=== PATIENT | female | born 1945 ===

== ENCOUNTER 2017-12-10 19:38 | Inpatient (IN) | payer MEDICARE ==
[2017-12-10] MEDS ORDERED: Albuterol-Ipratrop 3 mg / 0.5 (3 ml) UD ONE ×2 (20:19→20:46)
[2017-12-10] MEDS ORDERED: Albuterol 0.083% Inhal Sol (2.5 mg/3 mL) UD INH STA (20:24)
--- NOTE | 2017-12-10 20:27 | C.PDOC ---
History Of Present Illness Patient is a 72 y/o female, with a Hx of colon CA, PNA, and asthma, who presents to the ED with a complaint of persistent CP associated with with SOB and productive cough. Per son, patient also experienced a sore throat and subjective, unknown fever. Patient admits to diaphoresis and mild upper bilateral leg pain. Denies any pain or swelling to calves. Son reports patient had colonic polyp removal last week with improved symptoms. Admits to using inhaler and nebulizer 1-2 times per day. No other physical complaints at this time. Time Seen by Provider: 12/10/17 19:57 Chief Complaint (Nursing): Chest Pain History Per: Patient, Family (son) History/Exam Limitations: no limitations Onset/Duration Of Symptoms: Days Current Symptoms Are (Timing): Still Present Associated Symptoms: Dyspnea, Diaphoresis Exacerbating Factors: Other (coughing) Recent travel outside of the [place]: No Past Medical History Reviewed: Historical Data, Nursing Documentation, Vital Signs Vital Signs: Last Vital Signs Temp 98.7 F 12/11/17 01:46 Pulse 87 12/11/17 01:46 Resp 18 12/11/17 01:46 BP 102/63 12/11/17 01:46 Pulse Ox 95 12/11/17 01:46 - Medical History PMH: Asthma, Bronchitis, Hyperthyroidism, Pneumonia Surgical History: Appendectomy, Cholecystectomy Family History: States: No Known Family Hx - Social History Hx Alcohol Use: No Hx Substance Use: No - Immunization History Hx Tetanus Toxoid Vaccination: No Hx Influenza Vaccination: No Hx Pneumococcal Vaccination: No Review Of Systems Constitutional: Positive for: Fever (subjective), Sweats ENT: Positive for: Throat Pain (sore throat) Cardiovascular: Positive for: Chest Pain. Negative for: Edema Respiratory: Positive for: Cough, Shortness of Breath Gastrointestinal: Negative for: Abdominal Pain Physical Exam - Physical Exam Appears: In Acute Distress (mild) Skin: Normal Color, Warm, Dry Head: Atraumatic, Normacephalic Oral Mucosa: Moist Throat: Normal, No Erythema Cardiovascular: Rhythm Regular, No Murmur Respiratory: Decreased Breath Sounds, No Rales, No Rhonchi, Wheezing (diffuse bilateral), Other (breathing 24x/min) ED Course And Treatment - Laboratory Results Result Diagrams: 12/11/17 04:55 12/11/17 04:55 ECG Rhythm: Sinus Tachycardia, R BBB (incomplete), Nonspecific Changes Interpretation Of ECG: LVH with strain pattern. Poor R wave progression in anteroseptal leads. No old EKGs for comparison Rate From EC (bpm) O2 Sat by Pulse Oximetry: 98 - CT Scan/US Chest Other Rad Studies (CT/US): Interpreted By Me, Read By Radiologist CT/US Interpretation: EXAM: CT Chest With Intravenous Contrast. EXAM DATE/TIME : 12/10/2017 9:54 PM. CLINICAL HISTORY: 72 years old, female; Signs and symptoms; Cough and shortness of breath; Symptoms not specified;. Additional info: Apical infiltrate versus mass. TECHNIQUE: Axial computed tomography images of the chest with intravenous contrast. All CT scans at this. facility use one or more dose reduction techniques, viz.: automated exposure control; ma/ kV. adjustment per patient size (including targeted exams where dose is matched to indication; i.e. head);. or iterative reconstruction technique. Coronal and sagittal reformatted images were created and reviewed. CONTRAST: 100 mL of [id number] administered intravenously. COMPARISON: There are no prior studies for comparison. FINDINGS: Lungs and pleural spaces: There is bilateral upper lobe volume loss. There is bilateral upper lobe. fibrosis and scarring. There is a bulla at the right apex. There is bilateral upper lobe bronchiectasis. There is apical pleural thickening. There are multiple calcified granulomas. Lower lobes and rightmiddle lobe are hyperinflated. There is fibrosis and scarring in the superior segments of both lower. lobes. There is scarring at the lung bases. There are no effusions. Heart and vasculature: The heart is normal in size. There is no pericardial effusion.Aorta and main. pulmonary artery are normal in caliber.There are vascular calcifications. Mediastinum: Trachea and main bronchi are patent. There is elevation and distortion of both bobby. There are shotty noncalcified and calcified mediastinal and hilar nodes. Esophagus is unremarkable. There is a small hiatal hernia. Thyroid: Thyroid is unremarkable. Bones/joints: Bony structures are osteopenic. There are degenerative changes. Soft tissues: unremarkable. Upper abdomen: There is fatty infiltration of the liver.There are small granulomas in the liver. There. is an accessory spleen. Gallbladder is absent. IMPRESSION: Bilateral upper lobe volume loss with fibrosis, scarring and bronchiectasis; less. extensive fibrosis and scarring in the superior segments of both lower lobes; prior granulomatous. disease. Additional nonemergent findings as described above Medical Decision Making Medical Decision Making: Plan: * EKG, CXR, blood work * Nebulizer treatment, Albuterol, Medrol Disposition - Disposition Disposition: HOSPITALIZED Disposition Time: 22:00 Condition: FAIR - Clinical Impression Clinical Impression: Asthmatic bronchitis, Influenza A - Scribe Statement The provider has reviewed the documentation as recorded by the Scribe Angie Fonseca All medical record entries made by the Shiraibmagen were at my direction and personally dictated by me. I have reviewed the chart and agree that the record accurately reflects my personal performance of the history, physical exam, medical decision making, and the department course for this patient. I have also personally directed, reviewed, and agree with the discharge instructions and disposition.
[2017-12-10] MEDS ORDERED: Albuterol 0.083% Inhal Sol (2.5 mg/3 mL) UD ONE (20:29)
[2017-12-10 20:54] LABS: BASO % 0.2 % (0.0-2.0); EOS % 0.7 % (0.0-4.0); HEMOGLOBIN 10.9 g/dL (11.0-16.0); LYMPH % 14.3 % (20.0-40.0); MEAN CELL VOLUME 82.7 fL (81.0-99.0); MEAN CORPUSCULAR HEMOGLOBIN 27.6 pg (27.0-31.0); MEAN CORPUSCULAR HGB CONC 33.4 g/dL (33.0-37.0); MEAN PLATELET VOLUME 9.3 fL (7.2-11.7); MONO # 0.9 K/uL (0.0-0.8); NEUT # 4.9 K/uL (1.8-7.0); NEUT % 71.8 % (50.0-75.0); RBC 3.96 Mil/uL (3.80-5.20); RED CELL DISTRIBUTION WIDTH 18.9 % (11.5-14.5); WHITE BLOOD COUNT 6.8 K/uL (4.8-10.8)
[2017-12-10 21:07] LABS: ALB/GLOB RATIO 1.2 (1.0-2.1); ALBUMIN 4.1 g/dL (3.5-5.0); ALT/SGPT 24 U/L (9-52); AST/SGOT 28 U/L (14-36); BLOOD UREA NITROGEN 6 mg/dL (7-17); CALCIUM 8.5 mg/dl (8.6-10.4); GFR AFRICAN-AMERICAN > 60; GFR NON-AFRICAN AMERICAN > 60
--- NOTE | 2017-12-10 22:09 | CP.PCM.HP ---
<Lindsay Harris - Last Filed: 12/11/17 05:44> History of Present Illness - History of Present Illness History of Present Illness: Medicine Note for Hospital Service CC: fever, cough, sore throat x 3 days HPI: 72 yo Female with PMHx Asthma, Hypothyroidism, Newly diagnosed Colon Cancer and TB (Age 10) presents to the ED with fever, cough, sore throat x 3 days. Patient reports feeling feverish, productive cough with yellow sputum , SOB, chest pain during coughing fits, sore throat, congestion, rhinorrhea, and body ache. Admitted to sick contact- her son had flu like symptoms. Patient did not receive the flu shot this past year. Patient saw her PMD day prior to admission, was given a prescription for mucinex and azithromycin. Denied abdominal pain, n/v/d/c, or urinary symptoms. PMHx: Asthma, Hypothyroidism, Newly diagnosed Colon Cancer (pending pathology from gastric polyp - colonscopy performed last week), TB (Age 10) PSHx: Appendectomy, Cholecystectomy Meds: As per JAN, reviewed and confirmed All: NKDA SHx: Denied x 3 FHx: Unremarkable PMD: [place] Present on Admission - Present on Admission Any Indicators Present on Admission: No Past Patient History - Past Social History Smoking Status: Never Smoked - PULMONARY Hx Asthma: Yes Hx Bronchitis: Yes Hx Pneumonia: Yes - ENDOCRINE/METABOLIC Hx Hyperthyroidism: Yes - GASTROINTESTINAL Other/Comment: COLON CANCER - PSYCHIATRIC Hx Substance Use: No - SURGICAL HISTORY Hx Appendectomy: Yes Hx Cholecystectomy: Yes - ANESTHESIA Hx Anesthesia: Yes Hx Anesthesia Reactions: No Meds Allergies/Adverse Reactions: Allergies Allergy/AdvReac Type Severity Reaction Status Date / Time No Known Allergies Allergy Unverified 12/10/17 19:53 Physical Exam - Constitutional Appears: No Acute Distress - Head Exam Head Exam: NORMAL INSPECTION, NORMOCEPHALIC - Eye Exam Eye Exam: EOMI, Normal appearance, PERRL Pupil Exam: NORMAL ACCOMODATION - ENT Exam ENT Exam: Mucous Membranes Moist - Neck Exam Neck exam: Positive for: Normal Inspection - Respiratory Exam Respiratory Exam: Decreased Breath Sounds, NORMAL BREATHING PATTERN. absent: Wheezes - Cardiovascular Exam Cardiovascular Exam: REGULAR RHYTHM - GI/Abdominal Exam GI & Abdominal Exam: Normal Bowel Sounds, Soft. absent: Distended, Tenderness - Extremities Exam Extremities exam: Positive for: normal inspection, pedal pulses present. Negative for: pedal edema, tenderness - Neurological Exam Neurological exam: Alert, CN II-XII Intact, Oriented x3 - Psychiatric Exam Psychiatric exam: Normal Affect, Normal Mood - Skin Skin Exam: Dry, Intact, Normal Color, Warm Results - Vital Signs Recent Vital Signs: Last Vital Signs Temp 98.8 F 12/10/17 19:41 Pulse 103 H 12/10/17 19:41 Resp 22 12/10/17 19:41 BP 145/77 12/10/17 19:41 Pulse Ox 98 12/10/17 22:00 - Labs Result Diagrams: 12/11/17 04:55 12/11/17 04:55 Labs: Laboratory Results - last 24 hr 12/10/17 12/10/17 12/10/17 20:21 20:45 20:45 WBC 6.8 RBC 3.96 Hgb 10.9 L Hct 32.8 L MCV 82.7 MCH 27.6 MCHC 33.4 RDW 18.9 H Plt Count 179 MPV 9.3 Neut % (Auto) 71.8 Lymph % (Auto) 14.3 L Ector % (Auto) 13.0 H Eos % (Auto) 0.7 Baso % (Auto) 0.2 Neut # 4.9 Lymph # 1.0 Ector # 0.9 H Eos # 0.0 Baso # 0.0 Sodium 124 L Potassium 4.4 Chloride 86 L Carbon Dioxide 31 H Anion Gap 12 BUN 6 L Creatinine 0.3 L Est GFR ( Amer) > 60 Est GFR (Non-Af Amer) > 60 Random Glucose 100 Calcium 8.5 L Total Bilirubin 0.5 AST 28 ALT 24 Alkaline Phosphatase 79 Troponin I < 0.0120 Total Protein 7.6 Albumin 4.1 Globulin 3.5 Albumin/Globulin Ratio 1.2 Influenza Typ A,B (EIA) Pos for influenza a H Assessment & Plan - Assessment and Plan (Free Text) Assessment: 72 yo Female with PMHx Asthma, Hypothyroidism, Newly diagnosed Colon Cancer and TB (Age 10) presents to the ED with fever, cough, sore throat x 3 days, patient found to have influenza. Plan: Influenza Bronchitis Afebrile, tachy, no leukocytosis or left shift Influenza + Imaging: CXR: upper lobes, apices not visualized CT Chest: Bilateral upper lobe volume loss with fibrosis, scarring and bronchiectasis; less extensive fibrosis and scarring in the superior segments of both lower lobes; prior granulomatous disease Meds: NS @ 100cc/hr Tamiflu 75mg PO BID Azithromycin 500mg IVP daily Pulmicort Q12H Tylenol PRN fever/ headache, Cepacol PRN, Magic Mouthwash PRN Hyponatremia 124 on admission F/U urine studies NS @ 100cc/hr Hx Hypothyroidism Continue home medications: levo 75mg PO daily Hx Asthma Hx Osteoporosis Hx TB CT Chest: Bilateral upper lobe volume loss with fibrosis, scarring and bronchiectasis; less extensive fibrosis and scarring in the superior segments of both lower lobes; prior granulomatous disease Prophylactic Measures GI PPX: Pepcid PO BID DVT PPX: SCDs, Heparin Q12H DW Dr. Rowan, Lindsay Harris DO, PGY-1 <Surinder Rowan P - Last Filed: 12/11/17 07:34> Results - Vital Signs Recent Vital Signs: Last Vital Signs Temp 98.7 F 12/11/17 01:46 Pulse 87 12/11/17 01:46 Resp 18 12/11/17 01:46 BP 102/63 12/11/17 01:46 Pulse Ox 98 12/11/17 05:13 - Labs Result Diagrams: 12/11/17 04:55 12/11/17 04:55 Labs: Laboratory Results - last 24 hr 12/10/17 12/10/17 12/10/17 20:21 20:45 20:45 WBC 6.8 RBC 3.96 Hgb 10.9 L Hct 32.8 L MCV 82.7 MCH 27.6 MCHC 33.4 RDW 18.9 H Plt Count 179 MPV 9.3 Neut % (Auto) 71.8 Lymph % (Auto) 14.3 L Ector % (Auto) 13.0 H Eos % (Auto) 0.7 Baso % (Auto) 0.2 Neut # 4.9 Lymph # 1.0 Ector # 0.9 H Eos # 0.0 Baso # 0.0 Neutrophils % (Manual) Band Neutrophils % Lymphocytes % (Manual) Monocytes % (Manual) Platelet Estimate Sodium 124 L Potassium 4.4 Chloride 86 L Carbon Dioxide 31 H Anion Gap 12 BUN 6 L Creatinine 0.3 L Est GFR ( Amer) > 60 Est GFR (Non-Af Amer) > 60 Random Glucose 100 Calcium 8.5 L Total Bilirubin 0.5 AST 28 ALT 24 Alkaline Phosphatase 79 Troponin I < 0.0120 Total Protein 7.6 Albumin 4.1 Globulin 3.5 Albumin/Globulin Ratio 1.2 Triglycerides Cholesterol LDL Cholesterol Direct HDL Cholesterol Free T4 TSH 3rd Generation Cortisol AM Sample Urine Osmolality Ur Random Creatinine Ur Random Sodium Influenza Typ A,B (EIA) Pos for influenza a H 12/11/17 12/11/17 12/11/17 04:55 04:55 04:55 WBC 6.8 RBC 3.77 L Hgb 10.5 L Hct 30.8 L MCV 81.9 MCH 27.9 MCHC 34.1 RDW 18.7 H Plt Count 175 MPV 9.4 Neut % (Auto) 92.8 H Lymph % (Auto) 4.3 L Ector % (Auto) 2.8 Eos % (Auto) 0.0 Baso % (Auto) 0.1 Neut # 6.3 Lymph # 0.3 L Ector # 0.2 Eos # 0.0 Baso # 0.0 Neutrophils % (Manual) 91 H Band Neutrophils % 2 Lymphocytes % (Manual) 4 L Monocytes % (Manual) 3 Platelet Estimate Normal Sodium 127 L Potassium 3.6 Chloride 92 L Carbon Dioxide 29 Anion Gap 9 L BUN 4 L Creatinine 0.3 L Est GFR ( Amer) > 60 Est GFR (Non-Af Amer) > 60 Random Glucose 159 H Calcium 8.3 L Total Bilirubin 0.2 AST 24 ALT 21 Alkaline Phosphatase 68 Troponin I Total Protein 7.1 Albumin 3.9 Globulin 3.2 Albumin/Globulin Ratio 1.2 Triglycerides 26 Cholesterol 169 LDL Cholesterol Direct 80 HDL Cholesterol 62 Free T4 TSH 3rd Generation 0.15 L Cortisol AM Sample 7.3 Urine Osmolality Ur Random Creatinine Ur Random Sodium Influenza Typ A,B (EIA) 12/11/17 12/11/17 04:55 04:56 WBC RBC Hgb Hct MCV MCH MCHC RDW Plt Count MPV Neut % (Auto) Lymph % (Auto) Ector % (Auto) Eos % (Auto) Baso % (Auto) Neut # Lymph # Ector # Eos # Baso # Neutrophils % (Manual) Band Neutrophils % Lymphocytes % (Manual) Monocytes % (Manual) Platelet Estimate Sodium Potassium Chloride Carbon Dioxide Anion Gap BUN Creatinine Est GFR ( Amer) Est GFR (Non-Af Amer) Random Glucose Calcium Total Bilirubin AST ALT Alkaline Phosphatase Troponin I Total Protein Albumin Globulin Albumin/Globulin Ratio Triglycerides Cholesterol LDL Cholesterol Direct HDL Cholesterol Free T4 1.29 TSH 3rd Generation Cortisol AM Sample Urine Osmolality 255 L Ur Random Creatinine 23.9 Ur Random Sodium 53 Influenza Typ A,B (EIA) Attending/Attestation - Attestation I have personally seen and examined this patient.: Yes I have fully participated in the care of the patient.: Yes I have reviewed all pertinent clinical information: Yes Notes (Text): Assessment * Influenza with bronchitis * h/o colonic polyp s/p removal being w/u for malignancy as out patient * h/o Ptb at age 10, 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
[2017-12-10] MEDS ORDERED: Iodixanol 320 MG/ML 100 ML BOTTLE IV ONE (22:59)
--- NOTE | 2017-12-10 23:47 | CT ---
EXAM: CT Chest With Intravenous Contrast EXAM DATE/TIME: 12/10/2017 9:54 PM CLINICAL HISTORY: 72 years old, female; Signs and symptoms; Cough and shortness of breath; Symptoms not specified; Additional info: Apical infiltrate versus mass TECHNIQUE: Axial computed tomography images of the chest with intravenous contrast. All CT scans at this facility use one or more dose reduction techniques, viz.: automated exposure control; ma/kV adjustment per patient size (including targeted exams where dose is matched to indication; i.e. head); or iterative reconstruction technique. Coronal and sagittal reformatted images were created and reviewed. CONTRAST: 100 mL of [id number] administered intravenously. COMPARISON: There are no prior studies for comparison. FINDINGS: Lungs and pleural spaces: There is bilateral upper lobe volume loss. There is bilateral upper lobe fibrosis and scarring. There is a bulla at the right apex. There is bilateral upper lobe bronchiectasis. There is apical pleural thickening. There are multiple calcified granulomas. Lower lobes and right middle lobe are hyperinflated. There is fibrosis and scarring in the superior segments of both lower lobes. There is scarring at the lung bases. There are no effusions. Heart and vasculature: The heart is normal in size. There is no pericardial effusion.Aorta and main pulmonary artery are normal in caliber.There are vascular calcifications. Mediastinum: Trachea and main bronchi are patent. There is elevation and distortion of both bobby. There are shotty noncalcified and calcified mediastinal and hilar nodes. Esophagus is unremarkable. There is a small hiatal hernia. Thyroid: Thyroid is unremarkable. Bones/joints: Bony structures are osteopenic. There are degenerative changes. Soft tissues: unremarkable Upper abdomen: There is fatty infiltration of the liver.There are small granulomas in the liver. There is an accessory spleen. Gallbladder is absent. IMPRESSION: Bilateral upper lobe volume loss with fibrosis, scarring and bronchiectasis; less extensive fibrosis and scarring in the superior segments of both lower lobes; prior granulomatous disease Additional nonemergent findings as described above.
[2017-12-11] MEDS: Sodium Chloride 0.9% 1,000 ML IV SCH ×2 (03:07→12:57)
[2017-12-11] MEDS: Benzocaine/Menthol (Cepacol) Lozenge MT PRN ×2 (03:54→08:46)
[2017-12-11 04:58] LABS: BASO % 0.1 % (0.0-2.0); HEMOGLOBIN 10.5 g/dL (11.0-16.0); LYMPH # 0.3 K/uL (1.0-4.3); LYMPH % 4.3 % (20.0-40.0); MEAN CELL VOLUME 81.9 fL (81.0-99.0); MEAN CORPUSCULAR HEMOGLOBIN 27.9 pg (27.0-31.0); MEAN CORPUSCULAR HGB CONC 34.1 g/dL (33.0-37.0); MEAN PLATELET VOLUME 9.4 fL (7.2-11.7); MONO # 0.2 K/uL (0.0-0.8); MONO % 2.8 % (0.0-10.0); NEUT # 6.3 K/uL (1.8-7.0); NEUT % 92.8 % (50.0-75.0); PLATELET COUNT 175 K/uL (130-400); RBC 3.77 Mil/uL (3.80-5.20); RED CELL DISTRIBUTION WIDTH 18.7 % (11.5-14.5); WHITE BLOOD COUNT 6.8 K/uL (4.8-10.8)
[2017-12-11 05:07] LABS: CREATININE, RANDOM URINE 23.9 mg/dL
[2017-12-11 05:11] LABS: ALB/GLOB RATIO 1.2 (1.0-2.1); ALBUMIN 3.9 g/dL (3.5-5.0); ALT/SGPT 21 U/L (9-52); AST/SGOT 24 U/L (14-36); BLOOD UREA NITROGEN 4 mg/dL (7-17); CALCIUM 8.3 mg/dl (8.6-10.4); GFR AFRICAN-AMERICAN > 60; GFR NON-AFRICAN AMERICAN > 60; HDL CHOLESTEROL 62 mg/dL (30-70)
[2017-12-11 05:21] LABS: LDL CHOLESTEROL 80 mg/dL (0-129)
[2017-12-11 05:33] LABS: BANDS 2 % (0-2); LYMPHOCYTE 4 % (20-40); MONOCYTE 3 % (0-10); NEUTROPHIL 91 % (50-75); PLATELET ESTIMATE NORMAL (NORMAL); TOTAL CELLS COUNTED 100
[2017-12-11] MEDS: Levothyroxine 75 MCG TAB PO SCH (05:47)
[2017-12-11] MEDS: Albuterol-Ipratrop 3 mg / 0.5 (3 ml) UD INH SCH ×2 (07:20→19:37)
--- NOTE | 2017-12-11 08:33 | RAD ---
Chest x-ray single frontal view History: Shortness of breath. Comparison: None available Findings: Dense biapical pleural thickening and scarring with associated upper lobe granulomatous changes. Superimposed fibrotic changes. Diffuse increased interstitial lung markings. Heart size within normal limits. Degenerative changes in the spine and shoulders. Surgical clips in the right upper abdomen. Impression: Dense biapical pleural thickening and scarring with associated upper lobe granulomatous changes. Superimposed fibrotic changes. Diffuse increased interstitial lung markings.
[2017-12-11] MEDS: Mag&Al/Simet/Diphen/Lido 237 ML KIT PO SCH ×5 (08:46→21:44)
--- NOTE | 2017-12-11 09:08 | CP.PCM.PN ---
<Licha Romero - Last Filed: 12/11/17 13:59> Subjective - Date & Time of Evaluation Date of Evaluation: 12/11/17 Time of Evaluation: 07:00 - Subjective Subjective: Patient was seen and examined at bedside in the AM. Patient states she has body aches, headache, sweats and dry eyes. She denies nausea, vomiting, diarrhea or constipation. Objective - Vital Signs/Intake and Output Vital Signs (last 24 hours): Temp Pulse Resp BP Pulse Ox 98.2 F 87 20 123/72 94 L 12/11/17 08:29 12/11/17 08:29 12/11/17 08:29 12/11/17 08:29 12/11/17 08:29 - Medications Medications: Current Medications Acetaminophen (Tylenol 325mg Tab) 650 mg PO Q6 PRN PRN Reason: Headache Last Admin: 12/11/17 03:50 Dose: 650 mg Acetaminophen (Tylenol 325mg Tab) 650 mg PO Q6 PRN PRN Reason: Fever >100.4 F Benzocaine/Menthol (Cepacol Sore Throat) 1 tiera MT QID PRN PRN Reason: Sore Throat Last Admin: 12/11/17 08:46 Dose: 1 tiera Budesonide (Pulmicort Respules) 0.5 mg INH RQ12 [facility] Famotidine (Pepcid) 20 mg PO BID [facility] Heparin Sodium (Porcine) (Heparin) 5,000 units SC Q12 [facility] Azithromycin 500 mg/ Sodium (Chloride) 250 mls @ 250 mls/hr IVPB DAILY [facility] Sodium Chloride (Sodium Chloride 0.9%) 1,000 mls @ 100 mls/hr IV .Q10H [facility] Last Admin: 12/11/17 03:07 Dose: 100 mls/hr Levothyroxine Sodium (Synthroid) 75 mcg PO DAILY@0630 [facility] Last Admin: 12/11/17 05:47 Dose: 75 mcg Ondansetron HCl (Zofran Inj) 4 mg IVP Q6 PRN PRN Reason: Nausea/Vomiting Oseltamivir Phosphate (Tamiflu Cap) 75 mg PO BID [facility] Stop: 12/16/17 02:41 Saliva Substitute (First Magic Mouthwash) 1 ml PO QID [facility] Last Admin: 12/11/17 08:46 Dose: Not Given - Labs Labs: 12/11/17 04:55 12/11/17 04:55 - Constitutional Appears: Toxic - Head Exam Head Exam: ATRAUMATIC, NORMAL INSPECTION - Eye Exam Eye Exam: EOMI, Normal appearance - ENT Exam ENT Exam: Mucous Membranes Dry - Respiratory Exam Respiratory Exam: Clear to Ausculation Bilateral, NORMAL BREATHING PATTERN - Cardiovascular Exam Cardiovascular Exam: REGULAR RHYTHM, +S1, +S2 - GI/Abdominal Exam GI & Abdominal Exam: Soft, Normal Bowel Sounds. absent: Tenderness - Extremities Exam Extremities Exam: Normal Inspection - Neurological Exam Neurological Exam: Alert, Awake, Oriented x3 - Psychiatric Exam Psychiatric exam: Normal Affect, Normal Mood - Skin Skin Exam: Normal Color, Warm Assessment and Plan - Assessment and Plan (Free Text) Assessment: 72 yo Female with past medical history of asthma, hypothyroidism, newly diagnosed Colon Cancer, and TB (Age 10) presents to the ED with fever, cough, sore throat x 3 days. 1.) Influenza Type A - Afebrile, no leukocytosis or left shift - Imaging: CXR: upper lobes, apices not visualized CT Chest: Bilateral upper lobe volume loss with fibrosis, scarring and bronchiectasis; less extensive fibrosis and scarring in the superior segments of both lower lobes; prior granulomatous disease - f/u blood and urine culture; f/u legionella; mycoplasm; strep pneumonia; procalcitonin - Medications: * NS @ 100cc/hr * Tamiflu 75mg PO BID * Moxifloxacin 400mg PO daily to start 12/12/17 * Pulmicort Q12H * Duonebs * Tylenol PRN fever/ headache, Magic Mouthwash PRN * Vitamin C 250mg PO daily * Promethazine/Codeine 5ml PO q4 PRN * Mucinex 600mg PO Q12h 2.) Hyponatremia - 124 on admission --> 127 (12/11/17) - Urine osmolality 255; urine sodium 53 - NS @ 100cc/hr 3.) History of Hypothyroidism - Continue home medications: levothyroxine 75mg PO daily - TSH 0.15; Free T4 1.29 4.) History of Asthma - CXR: upper lobes, apices not visualized - CT Chest: Bilateral upper lobe volume loss with fibrosis, scarring and bronchiectasis; less extensive fibrosis and scarring in the superior segments of both lower lobes; prior granulomatous disease 5.) History of TB - CT Chest: Bilateral upper lobe volume loss with fibrosis, scarring and bronchiectasis; less extensive fibrosis and scarring in the superior segments of both lower lobes; prior granulomatous disease 6.) Dry Eyes - Artificial Tears q2h PRN 7 .) Prophylaxis - GI PPX: Pepcid PO BID - DVT PPX: SCDs, Heparin Q12H - Physical Therapy eval and treat <JoseJordana Marla - Last Filed: 12/12/17 09:24> Objective - Vital Signs/Intake and Output Vital Signs (last 24 hours): Temp Pulse Resp BP Pulse Ox 98.4 F 110 H 20 104/64 95 12/12/17 07:50 12/12/17 07:50 12/12/17 07:50 12/12/17 07:50 12/12/17 07:50 - Medications Medications: Current Medications Acetaminophen (Tylenol 325mg Tab) 650 mg PO Q6 PRN PRN Reason: Headache Last Admin: 12/12/17 08:11 Dose: 650 mg Acetaminophen (Tylenol 325mg Tab) 650 mg PO Q6 PRN PRN Reason: Fever >100.4 F Albuterol/Ipratropium (Duoneb 3 Mg/0.5 Mg (3 Ml) Ud) 3 ml INH RQ6 [facility] Last Admin: 12/12/17 07:19 Dose: 3 ml Artificial Tears (Artificial Tears) 0 ml OU Q2 PRN PRN Reason: Dry eyes Last Admin: 12/11/17 21:44 Dose: 1 drop Ascorbic Acid (Vitamin C 250 Mg Tab) 250 mg PO DAILY [facility] Last Admin: 12/11/17 15:24 Dose: 250 mg Budesonide (Pulmicort Respules) 0.5 mg INH RQ12 [facility] Last Admin: 12/11/17 19:36 Dose: Not Given Famotidine (Pepcid) 20 mg PO BID [facility] Last Admin: 12/11/17 17:52 Dose: 20 mg Guaifenesin (Mucinex La) 600 mg PO Q12 [facility] Last Admin: 12/11/17 21:36 Dose: 600 mg Heparin Sodium (Porcine) (Heparin) 5,000 units SC Q12 [facility] Last Admin: 12/11/17 21:36 Dose: 5,000 units Sodium Chloride (Sodium Chloride 0.9%) 1,000 mls @ 100 mls/hr IV .Q10H [facility] Last Admin: 12/12/17 08:55 Dose: Not Given Moxifloxacin HCl (Avelox Iv 400mg/250ml Ns) 400 mg in 250 mls @ 167 mls/hr IVPB Q24H [facility] Last Admin: 12/11/17 22:35 Dose: 167 mls/hr Levothyroxine Sodium (Synthroid) 75 mcg PO DAILY@0630 [facility] Last Admin: 12/12/17 05:41 Dose: 75 mcg Ondansetron HCl (Zofran Inj) 4 mg IVP Q6 PRN PRN Reason: Nausea/Vomiting Oseltamivir Phosphate (Tamiflu Cap) 75 mg PO BID [facility] Stop: 12/16/17 02:41 Last Admin: 12/11/17 17:52 Dose: 75 mg Promethazine HCl/Codeine (Phenergan/Codeine Oral Syrup) 5 ml PO Q4 PRN PRN Reason: Cough Last Admin: 12/11/17 21:36 Dose: 5 ml Saliva Substitute (First Magic Mouthwash) 1 ml PO QID [facility] Last Admin: 12/11/17 21:44 Dose: 1 ml - Labs Labs: 12/11/17 04:55 12/11/17 04:55 Attending/Attestation - Attestation I have personally seen and examined this patient.: Yes I have fully participated in the care of the patient.: Yes I have reviewed all pertinent clinical information, including history, physical exam and plan: Yes Notes (Text): This is a late computer entry for 12/11/17. Patient seen, examined and case discussed with medical economics consultant. Patient reports headache, body aches pain, cough, and sore throat at bedside. Patient is on droplet precaution for the flu. Infectious Disease consult c/w tamiflu and anibiotic therapy for pneumonia Assessment/Plan 1.) Influenza Type A+ Mycoplasma Pneumonia Cough * Afebrile, no leukocytosis or left shift * Infectious Disease (Dr. Paulino) on board-->help appreciated * Imaging: * CXR (12/10/17): dense biaplical pleural thickening and scarring with associated upper lobe granulomatous changes. Superimporsed fibrotic changes. Diffuse increase interstitial lung markings * CT Chest (12/10/17): Bilateral upper lobe volume loss with fibrosis, scarring and bronchiectasis; less extensive fibrosis and scarring in the superior segments of both lower lobes; prior granulomatous disease * f/u blood and urine culture; f/u legionella; mycoplasma Igm+; strep pneumonia ; procalcitonin * Start Avelox 400mg IV q daily (active since 12/11/17) - Medications: * NS @ 100cc/hr * Tamiflu 75mg PO BID * Pulmicort Q12H * Duonebs PRN shortness of breath * Tylenol PRN fever/ headache, Magic Mouthwash PRN * Vitamin C 250mg PO daily * Promethazine/Codeine 5ml PO q4 PRN * Mucinex 600mg PO Q12h 2.) Hyponatremia * 124 on admission --> 127 (12/11/17) * Urine osmolality 255; urine sodium 53 * NS @ 100cc/hr * f/u serum osmolarity, urine osmolarity, urine sodium for tomorrow 3.) History of Hypothyroidism * Continue home medications: levothyroxine 75mg PO daily * TSH 0.15; Free T4 1.29 4.) History of Asthma * CXR: upper lobes, apices not visualized * CT Chest: Bilateral upper lobe volume loss with fibrosis, scarring and bronchiectasis; less extensive fibrosis and scarring in the superior segments of both lower lobes; prior granulomatous disease * Pulmicort Q12H * Duonebs PRN shortness of breathr 5.) History of TB * CT Chest: Bilateral upper lobe volume loss with fibrosis, scarring and bronchiectasis; less extensive fibrosis and scarring in the superior segments of both lower lobes; prior granulomatous disease 6.) Dry Eyes * Artificial Tears q2h PRN 7 .) Prophylaxis * GI PPX: Pepcid PO BID * DVT PPX: SCDs, Heparin Q12H * Physical Therapy eval and treat
[2017-12-11] MEDS: Budesonide 0.5 mg/2 ml Inhal Susp UD INH SCH ×2 (09:38→19:36)
[2017-12-11] MEDS ORDERED: LEVOTHYROXINE 75 MCG PO SCH (10:00)
[2017-12-11] MEDS ORDERED: Azithromycin 500 MG in Sodium Chloride 0.9% 250 ML IVPB SCH (10:00)
[2017-12-11] MEDS ORDERED: Tears Naturale Forte (15ml) OU PRN (13:24)
[2017-12-11] MEDS: Promethazine/Cod 6.25mg-10mg/5ml Syr UD PO PRN ×2 (15:23→21:36)
[2017-12-11] MEDS: Aritificial Tears (15ml) OU PRN ×2 (15:24→21:44)
[2017-12-11] MEDS: guaiFENesin 600 mg ER Tab PO SCH (21:36)
--- NOTE | 2017-12-11 22:30 | CARD ---
APPROVED REPORT EKG Measurement Heart [id number] <Conclusion> Sinus tachycardia Incomplete right bundle branch block Left ventricular hypertrophy with repolarization abnormality Abnormal ECG
[2017-12-11] MEDS: Moxifloxacin IV 400mg/250ml NS 400 MG/250 ML BAG IVPB SCH (22:35)
[2017-12-11 23:00] LABS: SQUAMOUS EPITHIAL < 1 /hpf (0-5); URINE BACTERIA RARE (<OCC); URINE BILIRUBIN NEGATIVE (NEGATIVE); URINE BLOOD 2+ (NEGATIVE); URINE CLARITY Clear (Clear); URINE COLOR Straw (YELLOW); URINE GLUCOSE (UA) NORMAL (Normal); URINE LEUKOCYTE ESTERASE NEG Leu/uL (Negative); URINE NITRATE NEGATIVE (NEGATIVE); URINE PROTEIN NEGATIVE (NEGATIVE); URINE UROBILINOGEN NORMAL mg/dL (0.2-1.0)
[2017-12-12] MEDS: Albuterol-Ipratrop 3 mg / 0.5 (3 ml) UD INH SCH ×4 (01:53→19:57)
[2017-12-12] MEDS: Levothyroxine 75 MCG TAB PO SCH (05:41)
--- NOTE | 2017-12-12 06:57 | CP.PCM.PN ---
<Licha Romero CarHari - Last Filed: 12/12/17 18:17> Subjective - Date & Time of Evaluation Date of Evaluation: 12/12/17 Time of Evaluation: 07:00 - Subjective Subjective: Medicine Progress Note: Patient was seen and examined at bedside in the AM. Per nurse no acute events overnight. Patient states she continues to have her cough which causes her abdominal pain when she coughs. Patient states her headache has went away. She states she did not have any night sweats this past evening. Patient denies nausea, vomiting, diarrhea, constipation, difficulty breathing or chest pain. She states the room feels stuffy. Objective - Vital Signs/Intake and Output Vital Signs (last 24 hours): Temp Pulse Resp BP Pulse Ox 99.2 F 95 H 20 104/58 L 93 L 12/11/17 23:59 12/11/17 23:59 12/11/17 23:59 12/11/17 23:59 12/11/17 23:59 Intake and Output: 12/11/17 12/12/17 18:59 06:59 Intake Total 1560 Balance 1560 - Medications Medications: Current Medications Acetaminophen (Tylenol 325mg Tab) 650 mg PO Q6 PRN PRN Reason: Headache Last Admin: 12/11/17 11:46 Dose: 650 mg Acetaminophen (Tylenol 325mg Tab) 650 mg PO Q6 PRN PRN Reason: Fever >100.4 F Albuterol/Ipratropium (Duoneb 3 Mg/0.5 Mg (3 Ml) Ud) 3 ml INH RQ6 [facility] Last Admin: 12/12/17 01:53 Dose: 3 ml Artificial Tears (Artificial Tears) 0 ml OU Q2 PRN PRN Reason: Dry eyes Last Admin: 12/11/17 21:44 Dose: 1 drop Ascorbic Acid (Vitamin C 250 Mg Tab) 250 mg PO DAILY [facility] Last Admin: 12/11/17 15:24 Dose: 250 mg Budesonide (Pulmicort Respules) 0.5 mg INH RQ12 [facility] Last Admin: 12/11/17 19:36 Dose: Not Given Famotidine (Pepcid) 20 mg PO BID [facility] Last Admin: 12/11/17 17:52 Dose: 20 mg Guaifenesin (Mucinex La) 600 mg PO Q12 [facility] Last Admin: 01/15/18 21:36 Dose: 600 mg Heparin Sodium (Porcine) (Heparin) 5,000 units SC Q12 [facility] Last Admin: 12/11/17 21:36 Dose: 5,000 units Sodium Chloride (Sodium Chloride 0.9%) 1,000 mls @ 100 mls/hr IV .Q10H [facility] Last Admin: 12/11/17 12:57 Dose: Not Given Moxifloxacin HCl (Avelox Iv 400mg/250ml Ns) 400 mg in 250 mls @ 167 mls/hr IVPB Q24H [facility] Last Admin: 12/11/17 22:35 Dose: 167 mls/hr Levothyroxine Sodium (Synthroid) 75 mcg PO DAILY@0630 [facility] Last Admin: 12/12/17 05:41 Dose: 75 mcg Ondansetron HCl (Zofran Inj) 4 mg IVP Q6 PRN PRN Reason: Nausea/Vomiting Oseltamivir Phosphate (Tamiflu Cap) 75 mg PO BID [facility] Stop: 12/16/17 02:41 Last Admin: 12/11/17 17:52 Dose: 75 mg Promethazine HCl/Codeine (Phenergan/Codeine Oral Syrup) 5 ml PO Q4 PRN PRN Reason: Cough Last Admin: 12/11/17 21:36 Dose: 5 ml Saliva Substitute (First Magic Mouthwash) 1 ml PO QID [facility] Last Admin: 12/11/17 21:44 Dose: 1 ml - Labs Labs: 12/11/17 04:55 12/11/17 04:55 - Constitutional Appears: Toxic - Head Exam Head Exam: ATRAUMATIC, NORMAL INSPECTION - Eye Exam Eye Exam: EOMI, Normal appearance - ENT Exam ENT Exam: Mucous Membranes Dry - Respiratory Exam Respiratory Exam: Clear to Ausculation Bilateral, NORMAL BREATHING PATTERN - Cardiovascular Exam Cardiovascular Exam: REGULAR RHYTHM, +S1, +S2 - GI/Abdominal Exam GI & Abdominal Exam: Soft, Normal Bowel Sounds. absent: Tenderness - Extremities Exam Extremities Exam: Normal Inspection. absent: Pedal Edema, Tenderness - Neurological Exam Neurological Exam: Alert, Awake, Oriented x3 - Psychiatric Exam Psychiatric exam: Normal Affect, Normal Mood - Skin Skin Exam: Normal Color, Warm Assessment and Plan - Assessment and Plan (Free Text) Assessment: 72 yo Female with past medical history of asthma, hypothyroidism, newly diagnosed Colon Cancer, and TB (Age 10) presents to the ED with fever, cough, sore throat x 3 days. 1.) Influenza Type A - Afebrile, no leukocytosis or left shift - Imaging: * CXR: upper lobes, apices not visualized * CT Chest: Bilateral upper lobe volume loss with fibrosis, scarring and bronchiectasis; less extensive fibrosis and scarring in the superior segments of both lower lobes; prior granulomatous disease - f/u blood culture - no growth preliminary - f/u urine culture - Legionella negative, strep pneumonia negative; meningitis negative, H. Influenza Negative - Procalcitonin: <0.05 - Medications: * NS @ 100cc/hr * Tamiflu 75mg PO BID * Moxifloxacin 400mg PO daily to start 12/12/17 * Pulmicort Q12H * Duonebs 3ml q6h * Tylenol PRN fever/ headache, Magic Mouthwash PRN * Vitamin C 250mg PO daily * Promethazine/Codeine 5ml PO q4 PRN * Mucinex 600mg PO Q12h 2.) Pneumonia - Mycoplasm + - Moxifloxacin 400mg PO daily to start 12/12/17 - Imaging: * CXR: upper lobes, apices not visualized * CT Chest: Bilateral upper lobe volume loss with fibrosis, scarring and bronchiectasis; less extensive fibrosis and scarring in the superior segments of both lower lobes; prior granulomatous disease 3.) Hyponatremia - 124 on admission --> 127 (12/11/17) - Urine osmolality 255; urine sodium 53 - NS @ 100cc/hr 4.) History of Hypothyroidism - Continue home medications: levothyroxine 75mg PO daily - Levothyroxine changed to 50mg PO daily - TSH 0.15; Free T4 1.29 5.) History of Asthma - CXR: upper lobes, apices not visualized - CT Chest: Bilateral upper lobe volume loss with fibrosis, scarring and bronchiectasis; less extensive fibrosis and scarring in the superior segments of both lower lobes; prior granulomatous disease 6.) History of TB - CT Chest: Bilateral upper lobe volume loss with fibrosis, scarring and bronchiectasis; less extensive fibrosis and scarring in the superior segments of both lower lobes; prior granulomatous disease 7.) Dry Eyes - Artificial Tears q2h PRN 8 .) Prophylaxis - GI PPX: Pepcid PO BID - DVT PPX: SCDs, Heparin Q12H - Physical Therapy eval and treat Case discussed with Dr. Jose Romero PGY-1 <Jordana Garcia V - Last Filed: 12/12/17 20:18> Objective - Vital Signs/Intake and Output Vital Signs (last 24 hours): Temp Pulse Resp BP Pulse Ox 98.1 F 97 H 20 105/58 L 95 12/12/17 16:08 12/12/17 16:08 12/12/17 16:08 12/12/17 16:18 12/12/17 16:08 Intake and Output: 12/12/17 12/13/17 18:59 06:59 Intake Total 1610 Balance 1610 - Medications Medications: Current Medications Acetaminophen (Tylenol 325mg Tab) 650 mg PO Q6 PRN PRN Reason: Headache Last Admin: 12/12/17 17:46 Dose: 650 mg Acetaminophen (Tylenol 325mg Tab) 650 mg PO Q6 PRN PRN Reason: Fever >100.4 F Albuterol/Ipratropium (Duoneb 3 Mg/0.5 Mg (3 Ml) Ud) 3 ml INH RQ6 [facility] Last Admin: 12/12/17 19:57 Dose: 3 ml Artificial Tears (Artificial Tears) 0 ml OU Q2 PRN PRN Reason: Dry eyes Last Admin: 12/12/17 17:43 Dose: 1 drop Ascorbic Acid (Vitamin C 250 Mg Tab) 250 mg PO DAILY [facility] Last Admin: 12/12/17 10:25 Dose: 250 mg Budesonide (Pulmicort Respules) 0.5 mg INH RQ12 [facility] Last Admin: 12/12/17 19:56 Dose: Not Given Famotidine (Pepcid) 20 mg PO BID [facility] Last Admin: 12/12/17 17:42 Dose: 20 mg Guaifenesin (Mucinex La) 600 mg PO Q12 [facility] Last Admin: 12/12/17 10:19 Dose: 600 mg Heparin Sodium (Porcine) (Heparin) 5,000 units SC Q12 [facility] Last Admin: 12/12/17 10:21 Dose: 5,000 units Sodium Chloride (Sodium Chloride 0.9%) 1,000 mls @ 100 mls/hr IV .Q10H [facility] Last Admin: 12/12/17 10:18 Dose: 100 mls/hr Moxifloxacin HCl (Avelox Iv 400mg/250ml Ns) 400 mg in 250 mls @ 167 mls/hr IVPB Q24H [facility] Last Admin: 12/11/17 22:35 Dose: 167 mls/hr Levothyroxine Sodium (Synthroid) 50 mcg PO DAILY@0630 [facility] Ondansetron HCl (Zofran Inj) 4 mg IVP Q6 PRN PRN Reason: Nausea/Vomiting Oseltamivir Phosphate (Tamiflu Cap) 75 mg PO BID [facility] Stop: 12/16/17 02:41 Last Admin: 12/12/17 17:42 Dose: 75 mg Promethazine HCl/Codeine (Phenergan/Codeine Oral Syrup) 5 ml PO Q4 PRN PRN Reason: Cough Last Admin: 12/12/17 16:16 Dose: 5 ml Saliva Substitute (First Magic Mouthwash) 1 ml PO QID [facility] Last Admin: 12/12/17 17:42 Dose: 1 ml - Labs Labs: 12/12/17 09:05 12/12/17 09:05 Attending/Attestation - Attestation I have personally seen and examined this patient.: Yes I have fully participated in the care of the patient.: Yes I have reviewed all pertinent clinical information, including history, physical exam and plan: Yes Notes (Text): 12/12/17 20:03 Assessment/Plan 1.) Influenza Type A+ Mycoplasma Pneumonia Cough * Afebrile, no leukocytosis or left shift * Infectious Disease (Dr. Paulino) on board-->help appreciated * Imaging: * CXR (12/10/17): dense biaplical pleural thickening and scarring with associated upper lobe granulomatous changes. Superimporsed fibrotic changes. Diffuse increase interstitial lung markings * CT Chest (12/10/17): Bilateral upper lobe volume loss with fibrosis, scarring and bronchiectasis; less extensive fibrosis and scarring in the superior segments of both lower lobes; prior granulomatous disease * f/u blood and urine culture; f/u legionella; mycoplasma Igm+; strep pneumonia ; procalcitonin * Start Avelox 400mg IV q daily (active since 12/11/17) - Medications: * NS @ 100cc/hr * Tamiflu 75mg PO BID * Pulmicort Q12H * Duonebs PRN shortness of breath * Tylenol PRN fever/ headache, Magic Mouthwash PRN * Vitamin C 250mg PO daily * Promethazine/Codeine 5ml PO q4 PRN * Mucinex 600mg PO Q12h 2.) Hyponatremia * 124 on admission --> 127 (12/11/17) * Urine osmolality 255; urine sodium 53 * NS @ 100cc/hr * f/u serum osmolarity, urine osmolarity, urine sodium for tomorrow 3.) History of Hypothyroidism * Continue home medications: levothyroxine 75mg PO daily * TSH 0.15; Free T4 1.29 4.) History of Asthma * CXR: upper lobes, apices not visualized * CT Chest: Bilateral upper lobe volume loss with fibrosis, scarring and bronchiectasis; less extensive fibrosis and scarring in the superior segments of both lower lobes; prior granulomatous disease * Pulmicort Q12H * Duonebs PRN shortness of breathr 5.) History of TB * CT Chest: Bilateral upper lobe volume loss with fibrosis, scarring and bronchiectasis; less extensive fibrosis and scarring in the superior segments of both lower lobes; prior granulomatous disease 6.) Dry Eyes * Artificial Tears q2h PRN 7 .) Prophylaxis * GI PPX: Pepcid PO BID * DVT PPX: SCDs, Heparin Q12H * Physical Therapy eval and treat
[2017-12-12] MEDS: Budesonide 0.5 mg/2 ml Inhal Susp UD INH SCH ×2 (07:10→19:56)
[2017-12-12] MEDS: Sodium Chloride 0.9% 1,000 ML IV SCH ×3 (08:55→20:21)
[2017-12-12 09:31] LABS: BASO % 0.3 % (0.0-2.0); EOS % 0.1 % (0.0-4.0); HEMOGLOBIN 10.4 g/dL (11.0-16.0); LYMPH # 1.9 K/uL (1.0-4.3); LYMPH % 36.4 % (20.0-40.0); MEAN CELL VOLUME 83.4 fL (81.0-99.0); MEAN CORPUSCULAR HEMOGLOBIN 27.7 pg (27.0-31.0); MEAN CORPUSCULAR HGB CONC 33.2 g/dL (33.0-37.0); MEAN PLATELET VOLUME 9.4 fL (7.2-11.7); MONO # 0.9 K/uL (0.0-0.8); MONO % 17.1 % (0.0-10.0); NEUT # 2.5 K/uL (1.8-7.0); NEUT % 46.1 % (50.0-75.0); NRBC % 0.1 % (0.0-2.0); RBC 3.76 Mil/uL (3.80-5.20); RED CELL DISTRIBUTION WIDTH 18.9 % (11.5-14.5); WHITE BLOOD COUNT 5.3 K/uL (4.8-10.8)
[2017-12-12 09:40] LABS: ALB/GLOB RATIO 0.9 (1.0-2.1); ALBUMIN 3.5 g/dL (3.5-5.0); ALT/SGPT 18 U/L (9-52); AST/SGOT 23 U/L (14-36); BLOOD UREA NITROGEN 10 mg/dL (7-17); CALCIUM 7.7 mg/dl (8.6-10.4); GFR AFRICAN-AMERICAN > 60; GFR NON-AFRICAN AMERICAN > 60; MAGNESIUM 1.8 mg/dL (1.6-2.3)
[2017-12-12] MEDS: Mag&Al/Simet/Diphen/Lido 237 ML KIT PO SCH ×4 (10:19→22:22)
[2017-12-12] MEDS: Aritificial Tears (15ml) OU PRN ×3 (10:19→22:23)
[2017-12-12] MEDS: guaiFENesin 600 mg ER Tab PO SCH ×2 (10:19→22:21)
[2017-12-12 11:08] LABS: OSMOLALITY,URINE 492 mosm/kg (300-1000)
[2017-12-12] MEDS: Promethazine/Cod 6.25mg-10mg/5ml Syr UD PO PRN ×3 (11:26→20:16)
[2017-12-12] MEDS ORDERED: Potassium Chloride 20 mEq ER Tab PO ONE (14:00)
[2017-12-12 16:42] LABS: N MENINGITIS ACY/W135 NEGATIVE (NEGATIVE); N MENINGITIS B/ECOLI K1 NEGATIVE (NEGATIVE); STREP PNEUMONIAE NEGATIVE (NEGATIVE); STREPTOCOCCUS B NEGATIVE (NEGATIVE)
[2017-12-12] MEDS: Moxifloxacin IV 400mg/250ml NS 400 MG/250 ML BAG IVPB SCH (22:21)
[2017-12-13] MEDS: Promethazine/Cod 6.25mg-10mg/5ml Syr UD PO PRN ×2 (00:47→05:47)
[2017-12-13] MEDS: Albuterol-Ipratrop 3 mg / 0.5 (3 ml) UD INH SCH ×6 (02:38→23:35)
[2017-12-13] MEDS: Levothyroxine 50 MCG TAB PO SCH (05:34)
[2017-12-13] MEDS: Sodium Chloride 0.9% 1,000 ML IV SCH (05:35)
[2017-12-13 07:14] LABS: BASO % 0.3 % (0.0-2.0); EOS % 0.5 % (0.0-4.0); HEMOGLOBIN 10.1 g/dL (11.0-16.0); LYMPH # 1.5 K/uL (1.0-4.3); LYMPH % 26.4 % (20.0-40.0); MEAN CELL VOLUME 82.9 fL (81.0-99.0); MEAN CORPUSCULAR HEMOGLOBIN 27.2 pg (27.0-31.0); MEAN CORPUSCULAR HGB CONC 32.9 g/dL (33.0-37.0); MEAN PLATELET VOLUME 9.1 fL (7.2-11.7); MONO # 0.8 K/uL (0.0-0.8); MONO % 14.1 % (0.0-10.0); NEUT # 3.3 K/uL (1.8-7.0); NEUT % 58.7 % (50.0-75.0); RBC 3.71 Mil/uL (3.80-5.20); RED CELL DISTRIBUTION WIDTH 19.2 % (11.5-14.5); WHITE BLOOD COUNT 5.7 K/uL (4.8-10.8)
[2017-12-13 07:43] LABS: ALB/GLOB RATIO 1.2 (1.0-2.1); ALBUMIN 3.4 g/dL (3.5-5.0); ALT/SGPT 31 U/L (9-52); AST/SGOT 47 U/L (14-36); BLOOD UREA NITROGEN 4 mg/dL (7-17); CALCIUM 7.5 mg/dl (8.6-10.4); GFR AFRICAN-AMERICAN > 60; GFR NON-AFRICAN AMERICAN > 60; MAGNESIUM 1.7 mg/dL (1.6-2.3)
[2017-12-13] MEDS: Budesonide 0.5 mg/2 ml Inhal Susp UD INH SCH ×2 (08:14→20:03)
[2017-12-13 08:43] VITALS: O2SAT 95
[2017-12-13] MEDS: guaiFENesin 600 mg ER Tab PO SCH ×2 (10:39→21:32)
[2017-12-13] MEDS: Mag&Al/Simet/Diphen/Lido 237 ML KIT PO SCH ×4 (10:40→21:32)
--- NOTE | 2017-12-13 13:40 | CP.PCM.CON ---
History of Present Illness - History of Present Illness History of Present Illness: dictated Past Patient History - Past Medical History & Family History Past Medical History?: Yes - Past Social History Smoking Status: Never Smoked - PULMONARY Hx Asthma: Yes Hx Bronchitis: Yes Hx Pneumonia: Yes - ENDOCRINE/METABOLIC Hx Hyperthyroidism: Yes - MUSCULOSKELETAL/RHEUMATOLOGICAL Hx Falls: No - GASTROINTESTINAL Other/Comment: COLON CANCER - PSYCHIATRIC Hx Substance Use: No - SURGICAL HISTORY Hx Appendectomy: Yes Hx Cholecystectomy: Yes - ANESTHESIA Hx Anesthesia: Yes Hx Anesthesia Reactions: No Meds Allergies/Adverse Reactions: Allergies Allergy/AdvReac Type Severity Reaction Status Date / Time No Known Allergies Allergy Unverified 12/10/17 19:53 - Medications Medications: Current Medications Acetaminophen (Tylenol 325mg Tab) 650 mg PO Q6 PRN PRN Reason: Headache Last Admin: 12/13/17 07:34 Dose: 650 mg Acetaminophen (Tylenol 325mg Tab) 650 mg PO Q6 PRN PRN Reason: Fever >100.4 F Albuterol/Ipratropium (Duoneb 3 Mg/0.5 Mg (3 Ml) Ud) 3 ml INH RQ4 [facility] Artificial Tears (Artificial Tears) 0 ml OU Q2 PRN PRN Reason: Dry eyes Last Admin: 12/12/17 22:23 Dose: 1 drop Ascorbic Acid (Vitamin C 250 Mg Tab) 250 mg PO DAILY [facility] Last Admin: 12/13/17 10:40 Dose: 250 mg Budesonide (Pulmicort Respules) 0.5 mg INH RQ12 [facility] Last Admin: 12/13/17 08:14 Dose: Not Given Famotidine (Pepcid) 20 mg PO BID [facility] Last Admin: 12/13/17 10:40 Dose: 20 mg Guaifenesin (Mucinex La) 600 mg PO Q12 [facility] Last Admin: 12/13/17 10:39 Dose: 600 mg Heparin Sodium (Porcine) (Heparin) 5,000 units SC Q12 [facility] Last Admin: 12/13/17 10:39 Dose: 5,000 units Sodium Chloride (Sodium Chloride 0.9%) 1,000 mls @ 100 mls/hr IV .Q10H [facility] Last Admin: 12/13/17 05:35 Dose: Not Given Moxifloxacin HCl (Avelox Iv 400mg/250ml Ns) 400 mg in 250 mls @ 167 mls/hr IVPB Q24H [facility] Last Admin: 12/12/17 22:21 Dose: 167 mls/hr Levothyroxine Sodium (Synthroid) 50 mcg PO DAILY@0630 [facility] Last Admin: 12/13/17 05:34 Dose: 50 mcg Ondansetron HCl (Zofran Inj) 4 mg IVP Q6 PRN PRN Reason: Nausea/Vomiting Oseltamivir Phosphate (Tamiflu Cap) 75 mg PO BID [facility] Stop: 12/16/17 02:41 Last Admin: 12/13/17 10:39 Dose: 75 mg Promethazine HCl/Codeine (Phenergan/Codeine Oral Syrup) 5 ml PO Q4 PRN PRN Reason: Cough Last Admin: 12/13/17 05:47 Dose: 5 ml Saliva Substitute (First Magic Mouthwash) 1 ml PO QID [facility] Last Admin: 12/13/17 10:40 Dose: Not Given Results - Vital Signs Recent Vital Signs: Last Vital Signs Temp 99.6 F 12/13/17 07:40 Pulse 98 H 12/13/17 07:40 Resp 20 12/13/17 07:40 BP 109/63 12/13/17 07:40 Pulse Ox 95 12/13/17 07:40 - Labs Result Diagrams: 12/13/17 07:06 12/13/17 07:06 Labs: Laboratory Results - last 24 hr 12/11/17 12/11/17 12/13/17 22:34 22:45 07:06 WBC 5.7 RBC 3.71 L Hgb 10.1 L Hct 30.8 L MCV 82.9 MCH 27.2 MCHC 32.9 L RDW 19.2 H Plt Count 183 MPV 9.1 Neut % (Auto) 58.7 Lymph % (Auto) 26.4 Scott % (Auto) 14.1 H Eos % (Auto) 0.5 Baso % (Auto) 0.3 Neut # 3.3 Lymph # 1.5 Scott # 0.8 Eos # 0.0 Baso # 0.0 Sodium Potassium Chloride Carbon Dioxide Anion Gap BUN Creatinine Est GFR ( Amer) Est GFR (Non-Af Amer) Random Glucose Calcium Phosphorus Magnesium Total Bilirubin AST ALT Alkaline Phosphatase Total Protein Albumin Globulin Albumin/Globulin Ratio H.influenzae Type B Ag Negative Ur L.pneumophila Ag Negative N.meningitidis ACY/W135 Negative N.meningi B/E.coli K1 Ag Negative Group B Strep Antigen Negative S. pneumoniae Antigen Negative 12/13/17 07:06 WBC RBC Hgb Hct MCV MCH MCHC RDW Plt Count MPV Neut % (Auto) Lymph % (Auto) Scott % (Auto) Eos % (Auto) Baso % (Auto) Neut # Lymph # Scott # Eos # Baso # Sodium 130 L Potassium 3.7 Chloride 95 L Carbon Dioxide 29 Anion Gap 9 L BUN 4 L Creatinine 0.3 L Est GFR ( Amer) > 60 Est GFR (Non-Af Amer) > 60 Random Glucose 97 Calcium 7.5 L Phosphorus 3.4 Magnesium 1.7 Total Bilirubin 0.2 AST 47 H D ALT 31 Alkaline Phosphatase 65 Total Protein 6.2 L Albumin 3.4 L Globulin 2.9 Albumin/Globulin Ratio 1.2 H.influenzae Type B Ag Ur L.pneumophila Ag N.meningitidis ACY/W135 N.meningi B/E.coli K1 Ag Group B Strep Antigen S. pneumoniae Antigen
--- NOTE | 2017-12-13 17:22 | CP.PCM.PN ---
Subjective - Date & Time of Evaluation Date of Evaluation: 12/13/17 Time of Evaluation: 07:00 - Subjective Subjective: Medicine Progress Note: Patient was seen and examined at bedside in the AM. Patient states she still has body aches and her head still hurts. She denies fevers, chills or night sweats. Patient states she is tolerating her diet. She denies nausea, vomiting , diarrhea or constipation. She states she would like to go home as she lives with her son. Objective - Vital Signs/Intake and Output Vital Signs (last 24 hours): Temp Pulse Resp BP Pulse Ox 98.5 F 96 H 20 97/60 L 95 12/13/17 16:13 12/13/17 16:13 12/13/17 16:13 12/13/17 16:13 12/13/17 16:13 Intake and Output: 12/13/17 12/13/17 06:59 18:59 Intake Total 800 Balance 800 - Medications Medications: Current Medications Acetaminophen (Tylenol 325mg Tab) 650 mg PO Q6 PRN PRN Reason: Headache Last Admin: 12/13/17 07:34 Dose: 650 mg Acetaminophen (Tylenol 325mg Tab) 650 mg PO Q6 PRN PRN Reason: Fever >100.4 F Albuterol/Ipratropium (Duoneb 3 Mg/0.5 Mg (3 Ml) Ud) 3 ml INH RQ4 [facility] Last Admin: 12/13/17 14:19 Dose: 3 ml Artificial Tears (Artificial Tears) 0 ml OU Q2 PRN PRN Reason: Dry eyes Last Admin: 12/12/17 22:23 Dose: 1 drop Ascorbic Acid (Vitamin C 250 Mg Tab) 250 mg PO DAILY [facility] Last Admin: 12/13/17 10:40 Dose: 250 mg Budesonide (Pulmicort Respules) 0.5 mg INH RQ12 [facility] Last Admin: 12/13/17 08:14 Dose: Not Given Famotidine (Pepcid) 20 mg PO BID [facility] Last Admin: 12/13/17 10:40 Dose: 20 mg Guaifenesin (Mucinex La) 600 mg PO Q12 [facility] Last Admin: 12/13/17 10:39 Dose: 600 mg Heparin Sodium (Porcine) (Heparin) 5,000 units SC Q12 [facility] Last Admin: 12/13/17 10:39 Dose: 5,000 units Sodium Chloride (Sodium Chloride 0.9%) 1,000 mls @ 100 mls/hr IV .Q10H [facility] Last Admin: 12/13/17 05:35 Dose: Not Given Moxifloxacin HCl (Avelox Iv 400mg/250ml Ns) 400 mg in 250 mls @ 167 mls/hr IVPB Q24H [facility] Last Admin: 12/12/17 22:21 Dose: 167 mls/hr Lactobacillus Acidophilus (Bacid Acidophilus) 1 cap PO BID [facility] Levothyroxine Sodium (Synthroid) 50 mcg PO DAILY@0630 [facility] Last Admin: 12/13/17 05:34 Dose: 50 mcg Ondansetron HCl (Zofran Inj) 4 mg IVP Q6 PRN PRN Reason: Nausea/Vomiting Oseltamivir Phosphate (Tamiflu Cap) 75 mg PO BID [facility] Stop: 12/16/17 02:41 Last Admin: 12/13/17 10:39 Dose: 75 mg Promethazine HCl/Codeine (Phenergan/Codeine Oral Syrup) 5 ml PO Q4 PRN PRN Reason: Cough Last Admin: 12/13/17 05:47 Dose: 5 ml Saliva Substitute (First Magic Mouthwash) 1 ml PO QID [facility] Last Admin: 12/13/17 14:01 Dose: 1 ml - Labs Labs: 12/13/17 07:06 12/13/17 07:06 - Constitutional Appears: No Acute Distress - Head Exam Head Exam: ATRAUMATIC, NORMAL INSPECTION - Eye Exam Eye Exam: EOMI, Normal appearance - ENT Exam ENT Exam: Mucous Membranes Moist - Respiratory Exam Respiratory Exam: Rales, NORMAL BREATHING PATTERN. absent: Clear to Ausculation Bilateral - Cardiovascular Exam Cardiovascular Exam: REGULAR RHYTHM, +S1, +S2 - GI/Abdominal Exam GI & Abdominal Exam: Soft, Normal Bowel Sounds. absent: Tenderness - Extremities Exam Extremities Exam: Normal Inspection - Neurological Exam Neurological Exam: Alert, Awake, Oriented x3 - Psychiatric Exam Psychiatric exam: Normal Affect, Normal Mood - Skin Skin Exam: Normal Color, Warm Assessment and Plan - Assessment and Plan (Free Text) Assessment: 72 yo Female with past medical history of asthma, hypothyroidism, newly diagnosed Colon Cancer, and TB (Age 10) presents to the ED with fever, cough, sore throat x 3 days. 1.) Influenza Type A - Afebrile, no leukocytosis or left shift - ID Consult: Dr. Paulino --> help appreciated - Imaging: * CXR: upper lobes, apices not visualized * CT Chest: Bilateral upper lobe volume loss with fibrosis, scarring and bronchiectasis; less extensive fibrosis and scarring in the superior segments of both lower lobes; prior granulomatous disease - f/u blood culture - no growth preliminary - urine culture: Contamination - Legionella negative, strep pneumonia negative; meningitis negative, H. Influenza Negative - Procalcitonin: <0.05 - Medications: * NS @ 100cc/hr * Tamiflu 75mg PO BID started on 12/11/17 * Moxifloxacin 400mg PO daily to start 12/12/17 * Pulmicort Q12H * Duonebs 3ml q4h * Tylenol PRN fever/ headache, Magic Mouthwash PRN * Vitamin C 250mg PO daily * Promethazine/Codeine 5ml PO q4 PRN * Mucinex 600mg PO Q12h 2.) Pneumonia - ID Consult: Dr. Paulino --> help appreciated - Mycoplasm + - Moxifloxacin 400mg PO daily to start 12/12/17 - Imaging: * CXR: upper lobes, apices not visualized * CT Chest: Bilateral upper lobe volume loss with fibrosis, scarring and bronchiectasis; less extensive fibrosis and scarring in the superior segments of both lower lobes; prior granulomatous disease 3.) Hyponatremia - 124 on admission --> 127 (12/11/17) - Urine osmolality 255; urine sodium 53 - NS @ 100cc/hr 4.) History of Hypothyroidism - Continue Levothyroxine 50mg PO daily - TSH 0.15; Free T4 1.29 5.) History of Asthma - CXR: upper lobes, apices not visualized - CT Chest: Bilateral upper lobe volume loss with fibrosis, scarring and bronchiectasis; less extensive fibrosis and scarring in the superior segments of both lower lobes; prior granulomatous disease 6.) History of TB - CT Chest: Bilateral upper lobe volume loss with fibrosis, scarring and bronchiectasis; less extensive fibrosis and scarring in the superior segments of both lower lobes; prior granulomatous disease 7.) Dry Eyes - Artificial Tears q2h PRN 8 .) Prophylaxis - GI PPX: Pepcid PO BID - DVT PPX: SCDs, Heparin Q12H - Physical Therapy eval and treat Case discussed with Dr. Jose Romero PGY-1
[2017-12-13] MEDS: Lactobacillus Acidophilus 500 MU Cap PO SCH (18:58)
[2017-12-13] MEDS: Moxifloxacin IV 400mg/250ml NS 400 MG/250 ML BAG IVPB SCH (21:31)
--- NOTE | 2017-12-14 00:40 | CON ---
DATE: REQUESTING PHYSICIAN: Dr. Garcia. HISTORY OF PRESENT ILLNESS: She is a 72-year-old female. She has a history of asthma and hypothyroid and she recently had colon cancer diagnosed and she has history of TD, came to the hospital with fever, cough and sore throat. She complains of sore in her tongue, in the back of her mouth and has some pain when she swallows. She came in here with productive cough, fever, yellowish phlegm, shortness of breath and she still complains of pain when she is coughing a lot and complains of sore throat, congestion, body aches. She is found to have flu now and she also has mycoplasma IgM positive. She is on antibiotics and I am asked to evaluate her and she remains on droplet isolation. She denies any nausea, vomiting or diarrhea, does complain of some pain in upper abdomen because of coughing. She has history of asthma, hypothyroidism, and she was diagnosed of colon cancer and is pending for the pathology and had colonoscopy performed last week. She was admitted on 12/10/2017. PAST MEDICAL HISTORY: Review of past medical history shows that she never smokes. She does have history of asthma, bronchitis. She has had pneumonia in the past. She has history of hypothyroidism and she is on Levothroid at this time or may be she was hyper before and then they did something and she became hypo. She speaks English only. She denies any pets at home. She lives with her son and she wanted to call him but at this time he did not supervisor opening and picking the phone. She had recently being diagnosed as colon cancer. She has no drug abuse. She has had history of appendectomy and cholecystectomy and for which she received anesthesia and at this time she is coughing a lot. ALLERGIES: SHE IS NOT ALLERGIC TO ANY MEDICINE. SOCIAL HISTORY: Negative for smoking or drinking. FAMILY HISTORY: Noncontributory. MEDICATIONS: At the present time, she is on Tylenol, she is on DuoNeb q. 4, Artificial Tears, vitamin C, Pulmicort, Pepcid. She is on Mucinex, heparin, Synthroid, Avelox, Zofran, Tamiflu she is getting, and she is on cough syrup promethazine with codeine and also on Magic Wash and sodium and on IV fluid, which was stopped. PHYSICAL EXAMINATION: VITAL SIGNS: T-max is 99.3, pulse is 98, blood pressure is 109/63, respirations are 20. HEENT: Head is atraumatic, normocephalic. Pupils are reacting to light. She appears pale, jaundiced. She tried to show me the lesion but it was in the posterior of the tongue, posterior palate and it was visualized well. NECK: Supple. No lymphadenopathy present. LUNGS: Chest wall is symmetrical. Lungs have bilateral wheeze and rhonchi. HEART: S1 and S2 is regular. ABDOMEN: Soft, nontender. No guarding. No rigidity present. She has no murmur. EXTREMITIES: Have no edema, clubbing or cyanosis at this time. She is frail. LABORATORY DATA: White count is 5.7, hemoglobin 10.1, hematocrit 30.8, platelet count is 183. Sodium is 130 today, potassium is 3.7, chloride is 95. Anion gap is 9, creatinine 0.3. Her procalcitonin level was 0.05 and serology is positive for influenza and positive for mycoplasma IgM. Her chest x-ray shows she had a chest CT done on admission which showed bilateral upper lobe volume loss and fibrosis, scarring and bronchiectasis. There is extensive fibrosis and scarring in the superior segment of both lower lobes, prior granulomatous disease. So at this time, I think she is still wheezing and still with respiratory issues. I would keep her another day or two and I agree with Avelox and Tamiflu and will also give her some she has recent hospitalization and will follow and she should get treatment for both, flu with Tamiflu and also for Mycoplasma IgM positive and she may have Mycoplasma pneumonia along with bronchitis and her asthma issues exacerbation. We will follow with medical attending. Jericho Paulino MD [facility]
[2017-12-14] MEDS: Promethazine/Cod 6.25mg-10mg/5ml Syr UD PO PRN ×2 (01:39→12:02)
[2017-12-14] MEDS: Albuterol-Ipratrop 3 mg / 0.5 (3 ml) UD INH SCH ×3 (03:15→13:30)
[2017-12-14] MEDS: Sodium Chloride 0.9% 1,000 ML IV SCH ×3 (03:40→11:03)
[2017-12-14] MEDS: Levothyroxine 50 MCG TAB PO SCH (05:41)
--- NOTE | 2017-12-14 07:00 | CP.PCM.PN ---
Objective - Vital Signs/Intake and Output Vital Signs (last 24 hours): Temp Pulse Resp BP Pulse Ox 98.1 F 80 20 110/67 95 12/14/17 00:25 12/14/17 00:25 12/14/17 00:25 12/14/17 00:25 12/14/17 00:25 Intake and Output: 12/13/17 12/14/17 18:59 06:59 Intake Total 1300 2250 Balance 1300 2250 - Medications Medications: Current Medications Acetaminophen (Tylenol 325mg Tab) 650 mg PO Q6 PRN PRN Reason: Headache Last Admin: 12/13/17 07:34 Dose: 650 mg Acetaminophen (Tylenol 325mg Tab) 650 mg PO Q6 PRN PRN Reason: Fever >100.4 F Albuterol/Ipratropium (Duoneb 3 Mg/0.5 Mg (3 Ml) Ud) 3 ml INH RQ4 [facility] Last Admin: 12/14/17 03:15 Dose: 3 ml Artificial Tears (Artificial Tears) 0 ml OU Q2 PRN PRN Reason: Dry eyes Last Admin: 12/12/17 22:23 Dose: 1 drop Ascorbic Acid (Vitamin C 250 Mg Tab) 250 mg PO DAILY [facility] Last Admin: 12/13/17 10:40 Dose: 250 mg Budesonide (Pulmicort Respules) 0.5 mg INH RQ12 [facility] Last Admin: 12/13/17 20:03 Dose: 0.5 mg Famotidine (Pepcid) 20 mg PO BID [facility] Last Admin: 12/13/17 18:58 Dose: 20 mg Guaifenesin (Mucinex La) 600 mg PO Q12 [facility] Last Admin: 12/13/17 21:32 Dose: 600 mg Heparin Sodium (Porcine) (Heparin) 5,000 units SC Q12 [facility] Last Admin: 12/13/17 21:32 Dose: 5,000 units Sodium Chloride (Sodium Chloride 0.9%) 1,000 mls @ 100 mls/hr IV .Q10H [facility] Last Admin: 12/14/17 05:52 Dose: 100 mls/hr Moxifloxacin HCl (Avelox Iv 400mg/250ml Ns) 400 mg in 250 mls @ 167 mls/hr IVPB Q24H [facility] Last Admin: 12/13/17 21:31 Dose: 167 mls/hr Lactobacillus Acidophilus (Bacid Acidophilus) 1 cap PO BID [facility] Last Admin: 12/13/17 18:58 Dose: 1 cap Levothyroxine Sodium (Synthroid) 50 mcg PO DAILY@0630 [facility] Last Admin: 12/14/17 05:41 Dose: 50 mcg Ondansetron HCl (Zofran Inj) 4 mg IVP Q6 PRN PRN Reason: Nausea/Vomiting Oseltamivir Phosphate (Tamiflu Cap) 75 mg PO BID [facility] Stop: 12/16/17 02:41 Last Admin: 12/13/17 18:58 Dose: 75 mg Promethazine HCl/Codeine (Phenergan/Codeine Oral Syrup) 5 ml PO Q4 PRN PRN Reason: Cough Last Admin: 12/14/17 01:39 Dose: 5 ml Saliva Substitute (First Magic Mouthwash) 1 ml PO QID [facility] Last Admin: 12/13/17 21:32 Dose: 1 ml - Labs Labs: 12/13/17 07:06 12/13/17 07:06
[2017-12-14] MEDS: Budesonide 0.5 mg/2 ml Inhal Susp UD INH SCH (07:12)
[2017-12-14 07:32] LABS: BASO % 0.1 % (0.0-2.0); EOS % 0.9 % (0.0-4.0); HEMOGLOBIN 9.5 g/dL (11.0-16.0); LYMPH # 1.8 K/uL (1.0-4.3); LYMPH % 49.1 % (20.0-40.0); MEAN CELL VOLUME 82.7 fL (81.0-99.0); MEAN CORPUSCULAR HEMOGLOBIN 27.7 pg (27.0-31.0); MEAN CORPUSCULAR HGB CONC 33.5 g/dL (33.0-37.0); MONO # 0.8 K/uL (0.0-0.8); MONO % 20.9 % (0.0-10.0); NEUT # 1.1 K/uL (1.8-7.0); PLATELET COUNT 161 K/uL (130-400); RBC 3.42 Mil/uL (3.80-5.20); RED CELL DISTRIBUTION WIDTH 18.9 % (11.5-14.5); WHITE BLOOD COUNT 3.7 K/uL (4.8-10.8)
[2017-12-14 08:04] LABS: ALB/GLOB RATIO 1.1 (1.0-2.1); ALBUMIN 3.1 g/dL (3.5-5.0); ALT/SGPT 62 U/L (9-52); AST/SGOT 79 U/L (14-36); BLOOD UREA NITROGEN 6 mg/dL (7-17); CALCIUM 8.1 mg/dl (8.6-10.4); GFR AFRICAN-AMERICAN > 60; GFR NON-AFRICAN AMERICAN > 60; MAGNESIUM 1.9 mg/dL (1.6-2.3)
[2017-12-14 08:42] LABS: LYMPHOCYTE 52 % (20-40); MONOCYTE 19 % (0-10); NEUTROPHIL 29 % (50-75); TOTAL CELLS COUNTED 100
[2017-12-14 08:43] LABS: ANISOCYTOSIS SLIGHT; HYPOCHROMIC SLIGHT; OVALOCYTES SLIGHT; PLATELET ESTIMATE NORMAL (NORMAL); POLYCHROMIC SLIGHT; TARGET CELLS SLIGHT
[2017-12-14] MEDS: Vitamins A & D Oint UD Foilpak TOP SCH ×2 (12:00→17:29)
[2017-12-14] MEDS: guaiFENesin 600 mg ER Tab PO SCH (12:02)
[2017-12-14] MEDS: Mag&Al/Simet/Diphen/Lido 237 ML KIT PO SCH ×4 (12:02→17:28)
[2017-12-14] MEDS: Lactobacillus Acidophilus 500 MU Cap PO SCH ×2 (12:02→17:28)
[2017-12-14] MEDS: Aritificial Tears (15ml) OU PRN (12:02)
--- NOTE | 2017-12-14 15:02 | CP.PCM.DIS ---
<Licha Romero - Last Filed: 12/14/17 20:56> Provider - Provider Date of Admission: 12/10/17 22:00 Attending physician: Jordana Garcia DO Time Spent in preparation of Discharge (in minutes): 40 Hospital Course - Lab Results Lab Results: Micro Results 12/10/17 20:47 Blood Blood Culture - Preliminary NO GROWTH AFTER 3 DAYS 12/10/17 20:30 Blood Blood Culture - Preliminary NO GROWTH AFTER 3 DAYS 12/11/17 22:34 Urine,Clean Catch Urine Culture - Final <10,000 CFU/ML. MULTIPLE SPECIES. PROBABLE CONTAMINATION. Most Recent Lab Values WBC 3.7 K/uL (4.8-10.8) L 12/14/17 07:16 RBC 3.42 Mil/uL (3.80-5.20) L 12/14/17 07:16 Hgb 9.5 g/dL (11.0-16.0) L 12/14/17 07:16 Hct 28.3 % (34.0-47.0) L 12/14/17 07:16 MCV 82.7 fL (81.0-99.0) 12/14/17 07:16 MCH 27.7 pg (27.0-31.0) 12/14/17 07:16 MCHC 33.5 g/dL (33.0-37.0) 12/14/17 07:16 RDW 18.9 % (11.5-14.5) H 12/14/17 07:16 Plt Count 161 K/uL (130-400) 12/14/17 07:16 MPV 9.0 fL (7.2-11.7) 12/14/17 07:16 Neut % (Auto) 29.0 % (50.0-75.0) L 12/14/17 07:16 Lymph % (Auto) 49.1 % (20.0-40.0) H 12/14/17 07:16 [place] % (Auto) 20.9 % (0.0-10.0) H 12/14/17 07:16 Eos % (Auto) 0.9 % (0.0-4.0) 12/14/17 07:16 Baso % (Auto) 0.1 % (0.0-2.0) 12/14/17 07:16 Neut # 1.1 K/uL (1.8-7.0) L 12/14/17 07:16 Lymph # 1.8 K/uL (1.0-4.3) 12/14/17 07:16 [place] # 0.8 K/uL (0.0-0.8) 12/14/17 07:16 Eos # 0.0 K/uL (0.0-0.7) 12/14/17 07:16 Baso # 0.0 K/uL (0.0-0.2) 12/14/17 07:16 Neutrophils % (Manual) 29 % (50-75) L 12/14/17 07:16 Band Neutrophils % 2 % (0-2) 12/11/17 04:55 Lymphocytes % (Manual) 52 % (20-40) H 12/14/17 07:16 Monocytes % (Manual) 19 % (0-10) H 12/14/17 07:16 Platelet Estimate Normal (NORMAL) 12/14/17 07:16 Polychromasia Slight 12/14/17 07:16 Hypochromasia (manual) Slight 12/14/17 07:16 Anisocytosis (manual) Slight 12/14/17 07:16 Target Cells Slight 12/14/17 07:16 Ovalocytes Slight 12/14/17 07:16 Sodium 131 mmol/L (132-148) L 12/14/17 07:16 Potassium 3.7 mmol/L (3.6-5.2) 12/14/17 07:16 Chloride 96 mmol/L (98-107) L 12/14/17 07:16 Carbon Dioxide 32 mmol/L (22-30) H 12/14/17 07:16 Anion Gap 8 (10-20) L 12/14/17 07:16 BUN 6 mg/dL (7-17) L 12/14/17 07:16 Creatinine 0.4 mg/dL (0.7-1.2) L 12/14/17 07:16 Est GFR ( Amer) > 60 12/14/17 07:16 Est GFR (Non-Af Amer) > 60 12/14/17 07:16 Random Glucose 87 mg/dL (65-105) 12/14/17 07:16 Serum Osmolality 288 mosm/kg (272-300) 12/12/17 12:28 Calcium 8.1 mg/dl (8.6-10.4) L 12/14/17 07:16 Phosphorus 3.7 mg/dL (2.5-4.5) 12/14/17 07:16 Magnesium 1.9 mg/dL (1.6-2.3) 12/14/17 07:16 Total Bilirubin 0.1 mg/dL (0.2-1.3) L 12/14/17 07:16 AST 79 U/L (14-36) H D 12/14/17 07:16 ALT 62 U/L (9-52) H D 12/14/17 07:16 Alkaline Phosphatase 77 U/L (38-126) 12/14/17 07:16 Troponin I < 0.0120 ng/mL (0.00-0.120) 12/10/17 20:45 Total Protein 6.1 g/dL (6.3-8.3) L 12/14/17 07:16 Albumin 3.1 g/dL (3.5-5.0) L 12/14/17 07:16 Globulin 3.0 gm/dL (2.2-3.9) 12/14/17 07:16 Albumin/Globulin Ratio 1.1 (1.0-2.1) 12/14/17 07:16 Triglycerides 26 mg/dL (0-149) 12/11/17 04:55 Cholesterol 169 mg/dL (0-199) 12/11/17 04:55 LDL Cholesterol Direct 80 mg/dL (0-129) 12/11/17 04:55 HDL Cholesterol 62 mg/dL (30-70) 12/11/17 04:55 Procalcitonin < 0.05 NG/ML (0.19-0.49) L 12/11/17 15:04 Free T4 1.29 ng/dL (0.78-2.19) 12/11/17 04:55 TSH 3rd Generation 0.15 mIU/L (0.46-4.68) L 12/11/17 04:55 Cortisol AM Sample 7.3 ug/dL (4.46-22.7) 12/11/17 04:55 Urine Color Straw (YELLOW) 12/11/17 22:51 Urine Clarity Clear (Clear) 12/11/17 22:51 Urine pH 6.0 (5.0-8.0) 12/11/17 22:51 Ur Specific [place] 1.010 (1.003-1.030) 12/11/17 22:51 Urine Protein Negative mg/dL (NEGATIVE) 12/11/17 22:51 Urine Glucose (UA) Normal mg/dL (Normal) 12/11/17 22:51 Urine Ketones Negative mg/dL (NEGATIVE) 12/11/17 22:51 Urine Blood 2+ (NEGATIVE) H 12/11/17 22:51 Urine Nitrate Negative (NEGATIVE) 12/11/17 22:51 Urine Bilirubin Negative (NEGATIVE) 12/11/17 22:51 Urine Urobilinogen Normal mg/dL (0.2-1.0) 12/11/17 22:51 Ur Leukocyte Esterase Neg [place]/uL (Negative) 12/11/17 22:51 Urine WBC (Auto) 2 /hpf (0-5) 12/11/17 22:51 Urine RBC (Auto) 21 /hpf (0-3) H 12/11/17 22:51 Ur Squamous Epith Cells < 1 /hpf (0-5) 12/11/17 22:51 Ur Transition Epith Cell < 1 /hpf (0-3) 12/11/17 22:51 Urine Bacteria Rare (<OCC) 12/11/17 22:51 Urine Osmolality 492 mosm/kg (300-1000) 12/12/17 10:08 Ur Random Creatinine 23.9 mg/dL 12/11/17 04:56 Ur Random Sodium 127 mmol/L 12/12/17 10:08 Influenza Typ A,B (EIA) Pos for influenza a (NEGATIVE) H 12/10/17 20:21 H.influenzae Type B Ag Negative (NEGATIVE) 12/11/17 22:45 Ur L.pneumophila Ag Negative (NEGATIVE) 12/11/17 22:34 Mycoplasma pneumon IgM Positive (NEGATIVE) H 12/11/17 15:04 N.meningitidis ACY/W135 Negative (NEGATIVE) 12/11/17 22:45 N.meningi B/E.coli K1 Ag Negative (NEGATIVE) 12/11/17 22:45 Group B Strep Antigen Negative (NEGATIVE) 12/11/17 22:45 S. pneumoniae Antigen Negative (NEGATIVE) 12/11/17 22:45 - Hospital Course Hospital Course: HPI: 72 yo Female with PMHx Asthma, Hypothyroidism, Newly diagnosed Colon Cancer and TB (Age 10) presents to the ED with fever, cough, sore throat x 3 days. Patient reports feeling feverish, productive cough with yellow sputum , SOB, chest pain during coughing fits, sore throat, congestion, rhinorrhea, and body ache. Admitted to sick contact- her son had flu like symptoms. Patient did not receive the flu shot this past year. Patient saw her PMD day prior to admission, was given a prescription for mucinex and azithromycin. Denied abdominal pain, n/v/d/c, or urinary symptoms. PMD: [place] PMHx: Asthma, Hypothyroidism, Newly diagnosed Colon Cancer (pending pathology from gastric polyp - colonscopy performed last week), TB (Age 10) PSHx: Appendectomy, Cholecystectomy Meds: As per JAN, reviewed and confirmed All: NKDA SHx: Denied x 3 FHx: Unremarkable Hospital Course: Patient was admitted for influenza a infection, and pneumonia. Patient tested positive for influenza A and Mycoplasma pneumonia IgM. Dr. Paulino (infectious disease) was consulted. Patient tested negative for Legionella, strep pneumonia , meningitis, and H. influenza. Her CXR showed dense biapical pleural thickening and scarring with associated upper lobe granulomatous changes, and superimposed fibrotic changes. Diffuse increased interstitial lung markings were also seen. CT chest showed bilateral upper lobe volume loss with fibrosis, scarring and bronchiectasis, less extensive fibrosis and scarring in the superior segments of both lower lobes, and prior granulomatous disease. Blood cultures showed no growth, while urine cultures showed contamination. She received NS @ 100 cc/hr, Tamiflu 75 mg bid, Moxifloxacin 400 mg, Pulmicort, Duonebs, Tylenol, vitamin c, and Mucinex. Patient was hyponatremic on admission with Na+ 124 for which she received NS @ 100 cc/hr. Her hyponatremia has improved to 131. Patient's history of hypothyroidism was managed with Levothyroxine 50 mg po daily. Her TSH was 0.15, and free T4 was 1.29. Patient complained of dry eyes for which she received artificial tears q2h prn. This is a summary of patient's hospital course, please see chart for full details. Patient stable for discharge per Dr. Garcia. Patient to start new medications: Tamiflu one tablet today in the evening. Tamiflu take one tablet tomorrow in the morning followed by one tablet tomorrow in the evening. Avelox 400mg one tablet per day for 5 days. Mucinex 600mg twice per day Promethazine with Codeine 5ml every 4 hours as needed for cough Albuterol inhaler ever 6 hours as needed for shortness of breath. Home Medications please continue: Synthroid 50mg one tablet in the morning. Please follow up with primary care Dr. Carver in 1 week. Please return to the hospital if symptoms return or worsen. Discharge Exam - Head Exam Head Exam: ATRAUMATIC, NORMAL INSPECTION - Eye Exam Eye Exam: EOMI, Normal appearance - ENT Exam ENT Exam: Mucous Membranes Moist - Respiratory Exam Respiratory Exam: Clear to PA & Lateral, NORMAL BREATHING PATTERN - Cardiovascular Exam Cardiovascular Exam: REGULAR RHYTHM, +S1, +S2 - GI/Abdominal Exam GI & Abdominal Exam: Normal Bowel Sounds, Soft. absent: Tenderness - Extremities Exam Extremities exam: normal inspection - Neurological Exam Neurological exam: Alert, Oriented x3 - Psychiatric Exam Psychiatric exam: Normal Affect, Normal Mood - Skin Skin Exam: Normal Color, Warm Discharge Plan - Discharge Medications Prescriptions: RX: Albuterol 0.042% [Albuterol 0.042% Inhal Ayesha (1.25mg/3ml) UD] 3 ml IH Q6 PRN #1 ayesha PRN Reason: Shortness Of Breath RX: guaiFENesin [Mucinex LA] 600 mg PO Q12 #30 tab RX: Levothyroxine [Synthroid] 50 mcg PO DAILY@0630 #30 tab Moxifloxacin [Avelox] 400 mg PO DAILY #5 tab RX: Oseltamivir [Tamiflu Cap] 75 mg PO BID #3 cap RX: Promethazine/Codeine [Phenergan/Codeine Oral Syrup] 5 ml PO Q4 PRN #1 udc PRN Reason: Cough - Follow Up Plan Condition: STABLE Disposition: HOME/ ROUTINE Instructions: Asthma (DC), Influenza (DC), Influenza Vaccine (DC) Referrals: Jordana Garcia DO [Staff Provider] - Jericho Paulino MD [Staff Provider] - <Jordana Garcia V - Last Filed: 12/15/17 01:25> Provider - Provider Date of Admission: 12/10/17 22:00 Attending physician: Jordana V Borker, DO Hospital Course - Lab Results Lab Results: Micro Results 12/10/17 20:47 Blood Blood Culture - Preliminary NO GROWTH AFTER 4 DAYS 12/10/17 20:30 Blood Blood Culture - Preliminary NO GROWTH AFTER 4 DAYS 12/11/17 22:34 Urine,Clean Catch Urine Culture - Final <10,000 CFU/ML. MULTIPLE SPECIES. PROBABLE CONTAMINATION. Most Recent Lab Values WBC 3.7 K/uL (4.8-10.8) L 12/14/17 07:16 RBC 3.42 Mil/uL (3.80-5.20) L 12/14/17 07:16 Hgb 9.5 g/dL (11.0-16.0) L 12/14/17 07:16 Hct 28.3 % (34.0-47.0) L 12/14/17 07:16 MCV 82.7 fL (81.0-99.0) 12/14/17 07:16 MCH 27.7 pg (27.0-31.0) 12/14/17 07:16 MCHC 33.5 g/dL (33.0-37.0) 12/14/17 07:16 RDW 18.9 % (11.5-14.5) H 12/14/17 07:16 Plt Count 161 K/uL (130-400) 12/14/17 07:16 MPV 9.0 fL (7.2-11.7) 12/14/17 07:16 Neut % (Auto) 29.0 % (50.0-75.0) L 12/14/17 07:16 Lymph % (Auto) 49.1 % (20.0-40.0) H 12/14/17 07:16 [place] % (Auto) 20.9 % (0.0-10.0) H 12/14/17 07:16 Eos % (Auto) 0.9 % (0.0-4.0) 12/14/17 07:16 Baso % (Auto) 0.1 % (0.0-2.0) 12/14/17 07:16 Neut # 1.1 K/uL (1.8-7.0) L 12/14/17 07:16 Lymph # 1.8 K/uL (1.0-4.3) 12/14/17 07:16 [place] # 0.8 K/uL (0.0-0.8) 12/14/17 07:16 Eos # 0.0 K/uL (0.0-0.7) 12/14/17 07:16 Baso # 0.0 K/uL (0.0-0.2) 12/14/17 07:16 Neutrophils % (Manual) 29 % (50-75) L 12/14/17 07:16 Band Neutrophils % 2 % (0-2) 12/11/17 04:55 Lymphocytes % (Manual) 52 % (20-40) H 12/14/17 07:16 Monocytes % (Manual) 19 % (0-10) H 12/14/17 07:16 Platelet Estimate Normal (NORMAL) 12/14/17 07:16 Polychromasia Slight 12/14/17 07:16 Hypochromasia (manual) Slight 12/14/17 07:16 Anisocytosis (manual) Slight 12/14/17 07:16 Target Cells Slight 12/14/17 07:16 Ovalocytes Slight 12/14/17 07:16 Sodium 131 mmol/L (132-148) L 12/14/17 07:16 Potassium 3.7 mmol/L (3.6-5.2) 12/14/17 07:16 Chloride 96 mmol/L (98-107) L 12/14/17 07:16 Carbon Dioxide 32 mmol/L (22-30) H 12/14/17 07:16 Anion Gap 8 (10-20) L 12/14/17 07:16 BUN 6 mg/dL (7-17) L 12/14/17 07:16 Creatinine 0.4 mg/dL (0.7-1.2) L 12/14/17 07:16 Est GFR ( Amer) > 60 12/14/17 07:16 Est GFR (Non-Af Amer) > 60 12/14/17 07:16 Random Glucose 87 mg/dL (65-105) 12/14/17 07:16 Serum Osmolality 288 mosm/kg (272-300) 12/12/17 12:28 Calcium 8.1 mg/dl (8.6-10.4) L 12/14/17 07:16 Phosphorus 3.7 mg/dL (2.5-4.5) 12/14/17 07:16 Magnesium 1.9 mg/dL (1.6-2.3) 12/14/17 07:16 Total Bilirubin 0.1 mg/dL (0.2-1.3) L 12/14/17 07:16 AST 79 U/L (14-36) H D 12/14/17 07:16 ALT 62 U/L (9-52) H D 12/14/17 07:16 Alkaline Phosphatase 77 U/L (38-126) 12/14/17 07:16 Troponin I < 0.0120 ng/mL (0.00-0.120) 12/10/17 20:45 Total Protein 6.1 g/dL (6.3-8.3) L 12/14/17 07:16 Albumin 3.1 g/dL (3.5-5.0) L 12/14/17 07:16 Globulin 3.0 gm/dL (2.2-3.9) 12/14/17 07:16 Albumin/Globulin Ratio 1.1 (1.0-2.1) 12/14/17 07:16 Triglycerides 26 mg/dL (0-149) 12/11/17 04:55 Cholesterol 169 mg/dL (0-199) 12/11/17 04:55 LDL Cholesterol Direct 80 mg/dL (0-129) 12/11/17 04:55 HDL Cholesterol 62 mg/dL (30-70) 12/11/17 04:55 Procalcitonin < 0.05 NG/ML (0.19-0.49) L 12/11/17 15:04 Free T4 1.29 ng/dL (0.78-2.19) 12/11/17 04:55 TSH 3rd Generation 0.15 mIU/L (0.46-4.68) L 12/11/17 04:55 Cortisol AM Sample 7.3 ug/dL (4.46-22.7) 12/11/17 04:55 Urine Color Straw (YELLOW) 12/11/17 22:51 Urine Clarity Clear (Clear) 12/11/17 22:51 Urine pH 6.0 (5.0-8.0) 12/11/17 22:51 Ur Specific [place] 1.010 (1.003-1.030) 12/11/17 22:51 Urine Protein Negative mg/dL (NEGATIVE) 12/11/17 22:51 Urine Glucose (UA) Normal mg/dL (Normal) 12/11/17 22:51 Urine Ketones Negative mg/dL (NEGATIVE) 12/11/17 22:51 Urine Blood 2+ (NEGATIVE) H 12/11/17 22:51 Urine Nitrate Negative (NEGATIVE) 12/11/17 22:51 Urine Bilirubin Negative (NEGATIVE) 12/11/17 22:51 Urine Urobilinogen Normal mg/dL (0.2-1.0) 12/11/17 22:51 Ur Leukocyte Esterase Neg [place]/uL (Negative) 12/11/17 22:51 Urine WBC (Auto) 2 /hpf (0-5) 12/11/17 22:51 Urine RBC (Auto) 21 /hpf (0-3) H 12/11/17 22:51 Ur Squamous Epith Cells < 1 /hpf (0-5) 12/11/17 22:51 Ur Transition Epith Cell < 1 /hpf (0-3) 12/11/17 22:51 Urine Bacteria Rare (<OCC) 12/11/17 22:51 Urine Osmolality 492 mosm/kg (300-1000) 12/12/17 10:08 Ur Random Creatinine 23.9 mg/dL 12/11/17 04:56 Ur Random Sodium 127 mmol/L 12/12/17 10:08 Influenza Typ A,B (EIA) Pos for influenza a (NEGATIVE) H 12/10/17 20:21 H.influenzae Type B Ag Negative (NEGATIVE) 12/11/17 22:45 Ur L.pneumophila Ag Negative (NEGATIVE) 12/11/17 22:34 Mycoplasma pneumon IgM Positive (NEGATIVE) H 12/11/17 15:04 N.meningitidis ACY/W135 Negative (NEGATIVE) 12/11/17 22:45 N.meningi B/E.coli K1 Ag Negative (NEGATIVE) 12/11/17 22:45 Group B Strep Antigen Negative (NEGATIVE) 12/11/17 22:45 S. pneumoniae Antigen Negative (NEGATIVE) 12/11/17 22:45 Attending/Attestation - Attestation I have personally seen and examined this patient.: Yes I have fully participated in the care of the patient.: Yes I have reviewed all pertinent clinical information, including history, physical exam and plan: Yes Notes (Text): This is late computer entry for 12/14/17. Patient seen, examined and case discussed with ophthalmic medical technician. Patient reports she feeling much better. Patient's lung exam has improved. She appears well-hydrated. Discussed with ID, prior to discharge. Patient recommended to finish Tamiflu which has to complete day 4 today and day 5 tomorrow. Patient recommended to finish Avelox to cover for Mycoplasma Pneumonaie. Patient provided supportive care for her cough including cough suppressant and mucolytic. Patient script for Albuterol PRN for shortness of breathe. Patient's thyroid medication titrated up to 75mcg POqAM, recommended to follow- up thyroid studies in 3-4 months. Patient recommended to follow-up with her PMD, Dr. Carver upon discharge. Discharge Diagnoses: 1.) Influenza Type A+-->stable-->to finish PO by tomorrow Mycoplasma Pneumonia--Stable to finish total 7 day course Cough--Improved 2.) Hyponatremia-->normalized 3.) History of Hypothyroidism --Chronic 4.) History of Asthma--Stable; provided script for SANJAY-PRn 5.) History of TB-->treated in past
[2017-12-14 16:46] VITALS: BP 110/64; PULSE 89; RESP 18; TEMP 98.3
== END 2017-12-14 18:05 | disposition home or self-care (01) | DRG 194 ==
LOC: C.ER 19:38 → C.9E 22:00 → C.5S 23:19
PROVIDERS: ADMIT Hospitalist; ATTEND Hospitalist
DX: J10.08 Influenza due to other identified influenza virus with other specified pneumonia (principal); E87.1 Hypo-osmolality and hyponatremia; J47.0 Bronchiectasis with acute lower respiratory infection; H04.123 Dry eye syndrome of bilateral lacrimal glands; E03.9 Hypothyroidism, unspecified; Z86.010 Personal history of colon polyps; Z86.11 Personal history of tuberculosis; Z87.01 Personal history of pneumonia (recurrent); J45.909 Unspecified asthma, uncomplicated; J40 Bronchitis, not specified as acute or chronic; J15.4 Pneumonia due to other streptococci

== ENCOUNTER 2017-12-18 20:32 | Inpatient (IN) | payer MEDICARE ==
[2017-12-18] MEDS ORDERED: Albuterol-Ipratrop 3 mg / 0.5 (3 ml) UD ONE ×2 (21:36→23:49)
[2017-12-18] MEDS ORDERED: Albuterol-Ipratrop 3 mg / 0.5 (3 ml) UD INH STA ×2 (21:37→22:57)
[2017-12-18 22:17] LABS: BASO % 0.4 % (0.0-2.0); EOS # 0.1 K/uL (0.0-0.7); EOS % 1.4 % (0.0-4.0); HEMOGLOBIN 10.5 g/dL (11.0-16.0); MEAN CELL VOLUME 82.5 fL (81.0-99.0); MEAN CORPUSCULAR HEMOGLOBIN 27.3 pg (27.0-31.0); MEAN CORPUSCULAR HGB CONC 33.1 g/dL (33.0-37.0); MONO # 1.8 K/uL (0.0-0.8); MONO % 20.5 % (0.0-10.0); NEUT # 4.9 K/uL (1.8-7.0); NEUT % 54.7 % (50.0-75.0); NRBC % 0.1 % (0.0-2.0); PLATELET COUNT 237 K/uL (130-400); RBC 3.86 Mil/uL (3.80-5.20); RED CELL DISTRIBUTION WIDTH 19.1 % (11.5-14.5); WHITE BLOOD COUNT 8.9 K/uL (4.8-10.8)
[2017-12-18 22:33] LABS: ALBUMIN 3.7 g/dL (3.5-5.0); ALT/SGPT 25 U/L (9-52); AST/SGOT 40 U/L (14-36); BLOOD UREA NITROGEN 4 mg/dL (7-17); CALCIUM 8.4 mg/dl (8.6-10.4); GFR AFRICAN-AMERICAN > 60; GFR NON-AFRICAN AMERICAN > 60
--- NOTE | 2017-12-18 23:31 | C.PDOC ---
History Of Present Illness 72 year old female presents to ED with complaints of fever, SOB, and cough. Patient was admitted on 12/10/2017 for fever, cough, and influenza related PNA. Patient has a past medical history of asthma, hypothyroidism, and newly diagnosed colon cancer. Past surgical history of appendectomy and cholecystectomy. CT chest at time of admission showed bilateral upper lobe volume loss with fibrosis scarring and bronchiectasis. Patient was treated with Z-Pack and Tamiflu at time of admission. PCP: Jericho Paulino Time Seen by Provider: 12/18/17 22:14 Chief Complaint (Nursing): Shortness Of Breath Past Medical History Reviewed: Historical Data, Nursing Documentation, Vital Signs Vital Signs: Last Vital Signs Temp 97.8 F 12/19/17 06:43 Pulse 91 H 12/19/17 06:43 Resp 20 12/19/17 06:43 BP 97/57 L 12/19/17 06:43 Pulse Ox 100 12/19/17 06:43 - Medical History PMH: Asthma, Bronchitis, Hypothyroidism, Pneumonia Surgical History: Appendectomy, Cholecystectomy - Social History Hx Alcohol Use: No Hx Substance Use: No - Immunization History Hx Tetanus Toxoid Vaccination: No Hx Influenza Vaccination: No Hx Pneumococcal Vaccination: No Review Of Systems Except As Marked, All Systems Reviewed And Found Negative. Constitutional: Positive for: Fever Respiratory: Positive for: Cough, Shortness of Breath Physical Exam - Physical Exam Appears: No Acute Distress (fEBRILE) Skin: Normal Color, Warm, Dry Neck: Normal Cardiovascular: Rhythm Regular Respiratory: No Normal Breath Sounds, Rhonchi (coarse rhonchi), Other ( productive cough) Back: Normal Inspection Extremity: Normal ROM, No Deformity Neurological/Psych: Oriented x3, Normal Sensation ED Course And Treatment - Laboratory Results Result Diagrams: 12/19/17 04:52 12/19/17 04:52 ECG: Interpreted By Me, Viewed By Me ECG Rhythm: Sinus Tachycardia, PVC ECG Interpretation: No Acute Changes (no ischemic changes) Interpretation Of ECG: LAD. Incomplete LBBB. Left ventricular hypertrophy with repolarization abnormality. Rate From EC O2 Sat by Pulse Oximetry: 94 (RA) Medical Decision Making Medical Decision Makin Initial impression: reactive airway disease Initial plan: * Assess for PNA * ABG * EKG * BNP * Labs * Trop I * CXR * Duonebs 2300 Flu negative Trop negative BNP 69 Sodium 129 pO2 59 ABG pH 7.41 CO2 43 WBC 8.9 Assessment of CXR shows bilateral fluffy infiltrate typical of PNA. 0142 Patient admitted to [facility] under Dr. Rowan for hypoxia, asthma exacerbation, and SOB. Disposition - Disposition Disposition: HOSPITALIZED Condition: GOOD - Scribe Statement Marielos Torres Provider Attestation: All medical record entries made by the Scribe were at my direction and personally dictated by me. I have reviewed the chart and agree that the record accurately reflects my personal performance of the history, physical exam, medical decision making, and the department course for this patient. I have also personally directed, reviewed, and agree with the discharge instructions and disposition.
[2017-12-18 23:36] LABS: ANISOCYTOSIS SLIGHT; HYPOCHROMIC SLIGHT; LYMPHOCYTE 24 % (20-40); MONOCYTE 24 % (0-10); NEUTROPHIL 52 % (50-75); TOTAL CELLS COUNTED 100
[2017-12-18 23:39] LABS: PLATELET ESTIMATE NORMAL (NORMAL)
[2017-12-19 00:09] LABS: ABG ALLEN TEST POS; ARTERIAL BLOOD GAS HCO3 26.6 mmol/L (21-28); ARTERIAL BLOOD GAS HEMOGLOBIN 10.1 g/dL (11.7-17.4); ARTERIAL BLOOD GAS O2 SAT 94.1 % (95-98); ARTERIAL BLOOD GAS PCO2 43 mm/Hg (35-45); ARTERIAL BLOOD GAS PH 7.41 (7.35-7.45); ARTERIAL BLOOD GAS PO2 59 mm/Hg (80-100); ARTERIAL BLOOD GAS TCO2 28.6 mmol/L (22-28)
[2017-12-19 01:06] LABS: B-TYPE NATRIURETIC PEPTIDE 69.3 pg/mL (0-900)
--- NOTE | 2017-12-19 02:23 | CP.PCM.HP ---
<Surinder Rowan P - Last Filed: 12/19/17 06:23> Meds Allergies/Adverse Reactions: Allergies Allergy/AdvReac Type Severity Reaction Status Date / Time No Known Allergies Allergy Verified 12/18/17 21:16 Results - Vital Signs Recent Vital Signs: Last Vital Signs Temp 98.9 F 12/19/17 06:13 Pulse 110 H 12/19/17 06:13 Resp 24 12/19/17 06:13 BP 96/54 L 12/19/17 06:13 Pulse Ox 96 12/19/17 06:13 - Labs Result Diagrams: 12/19/17 04:52 12/19/17 04:52 Labs: Laboratory Results - last 24 hr 12/18/17 12/18/17 12/18/17 22:08 22:08 22:56 WBC 8.9 D RBC 3.86 Hgb 10.5 L Hct 31.8 L MCV 82.5 MCH 27.3 MCHC 33.1 RDW 19.1 H Plt Count 237 MPV 9.0 Neut % (Auto) 54.7 Lymph % (Auto) 23.0 Milam % (Auto) 20.5 H Eos % (Auto) 1.4 Baso % (Auto) 0.4 Neut # 4.9 Lymph # 2.0 Milam # 1.8 H Eos # 0.1 Baso # 0.0 Neutrophils % (Manual) 52 Lymphocytes % (Manual) 24 Monocytes % (Manual) 24 H Platelet Estimate Normal Hypochromasia (manual) Slight Anisocytosis (manual) Slight Puncture Site pCO2 pO2 HCO3 ABG pH ABG Total CO2 ABG O2 Saturation ABG Base Excess ABG Hemoglobin ABG Carboxyhemoglobin POC ABG HHb (Measured) ABG Methemoglobin Ac Test Hgb O2 Saturation Sodium 129 L Potassium 4.8 Chloride 99 Carbon Dioxide 28 Anion Gap 7 L BUN 4 L Creatinine 0.3 L Est GFR ( Amer) > 60 Est GFR (Non-Af Amer) > 60 Random Glucose 110 H Calcium 8.4 L Magnesium Total Bilirubin 0.8 AST 40 H D ALT 25 Alkaline Phosphatase 70 Troponin I NT-Pro-B Natriuret Pep Total Protein 7.6 Albumin 3.7 Globulin 3.9 Albumin/Globulin Ratio 1.0 Influenza Typ A,B (EIA) Negative for flu a/b 12/18/17 12/19/17 12/19/17 23:57 00:10 04:52 WBC 8.1 RBC 3.74 L Hgb 10.2 L Hct 30.6 L MCV 82.0 MCH 27.3 MCHC 33.3 RDW 18.6 H Plt Count 223 MPV 8.9 Neut % (Auto) 74.6 Lymph % (Auto) 14.0 L Milam % (Auto) 10.9 H Eos % (Auto) 0.2 Baso % (Auto) 0.3 Neut # 6.0 Lymph # 1.1 Milam # 0.9 H Eos # 0.0 Baso # 0.0 Neutrophils % (Manual) Lymphocytes % (Manual) Monocytes % (Manual) Platelet Estimate Hypochromasia (manual) Anisocytosis (manual) Puncture Site Rr pCO2 43 pO2 59 L HCO3 26.6 ABG pH 7.41 ABG Total CO2 28.6 H ABG O2 Saturation 94.1 L ABG Base Excess 2.3 ABG Hemoglobin 10.1 L ABG Carboxyhemoglobin 3.0 H POC ABG HHb (Measured) 5.6 H ABG Methemoglobin 1.4 Ac Test Pos Hgb O2 Saturation 90.0 L Sodium Potassium Chloride Carbon Dioxide Anion Gap BUN Creatinine Est GFR ( Amer) Est GFR (Non-Af Amer) Random Glucose Calcium Magnesium 2.0 Total Bilirubin AST ALT Alkaline Phosphatase Troponin I < 0.0120 NT-Pro-B Natriuret Pep 69.3 Total Protein Albumin Globulin Albumin/Globulin Ratio Influenza Typ A,B (EIA) 12/19/17 04:52 WBC RBC Hgb Hct MCV MCH MCHC RDW Plt Count MPV Neut % (Auto) Lymph % (Auto) Milam % (Auto) Eos % (Auto) Baso % (Auto) Neut # Lymph # Milam # Eos # Baso # Neutrophils % (Manual) Lymphocytes % (Manual) Monocytes % (Manual) Platelet Estimate Hypochromasia (manual) Anisocytosis (manual) Puncture Site pCO2 pO2 HCO3 ABG pH ABG Total CO2 ABG O2 Saturation ABG Base Excess ABG Hemoglobin ABG Carboxyhemoglobin POC ABG HHb (Measured) ABG Methemoglobin Ac Test Hgb O2 Saturation Sodium 133 Potassium 3.3 L Chloride 98 Carbon Dioxide 30 Anion Gap 9 L BUN 4 L Creatinine 0.4 L Est GFR ( Amer) > 60 Est GFR (Non-Af Amer) > 60 Random Glucose 141 H Calcium 8.2 L Magnesium Total Bilirubin 0.5 AST 19 ALT 30 Alkaline Phosphatase 70 Troponin I NT-Pro-B Natriuret Pep Total Protein 7.2 Albumin 3.6 Globulin 3.6 Albumin/Globulin Ratio 1.0 Influenza Typ A,B (EIA) Attending/Attestation - Attestation I have personally seen and examined this patient.: Yes I have fully participated in the care of the patient.: Yes I have reviewed all pertinent clinical information: Yes Notes (Text): 12/19/17 06:24 Assessment * Asthmatic bronchitis recent hospitalization and finished course of abx and steroids, unchanged CT findings. * Acid reflex likely precipitating above * Recent influenza * h/o recent colonic polyp removal being Plan * Oral prednisone * Doxycycline * PPI, prn zofran strongly control acid reflex * Nebs inhaled steroids * See orders for detail. <Lindsay Harris - Last Filed: 12/19/17 12:36> History of Present Illness - History of Present Illness History of Present Illness: Medicine Note for Hospitalist Service CC: SOB HPI: 72 Female with PMHx of Asthma, Hypothyroidism, Colon Cancer ( newly diagnosed), Pulmonary TB (age 10) presents to the ED for SOB, body ache, fatigue. Patient was dischargd on 12/14/17 from [facility] - was treated for Influenza type A, Mycoplasma PNA. She was discharged with steriods, tamiflu, and antibiotics. Patient reports her symptoms persisted, despite her compliance with the prescribed medications. Patient continues with fever, chills, body ache , fatigue, weakness, chest pain 2/2 coughing, SOB, productive cough with yellow phlegm, sore throat, increased heartburn, and decreased appetite. Denied abdominal pain, n/v/d/c, or urinary symptoms. PMH: Asthma, Hypothyroidism, Colon Cancer (newly diagnosed), Pulmonary TB (age 10) PSHx: Appendectomy, Cholecystectomy Meds: Albuterol PRN, Mucinex 600 mg PO Q12H, Synthroid 50 mcg PO Daily, Promethazine 5 mL PO Q4H PRN Allergies: NKDA Social Hx: Denies use of tobacco, alcohol, drugs. Lives in [place] with her brother. 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 FMHx: Non-Contributory PMD: Dr. Carver Present on Admission - Present on Admission Any Indicators Present on Admission: No Past Patient History - Past Medical History & Family History Past Medical History?: Yes - Past Social History Smoking Status: Never Smoked - PULMONARY Hx Asthma: Yes Hx Bronchitis: Yes Hx Pneumonia: Yes - ENDOCRINE/METABOLIC Hx Hypothyroidism: Yes - MUSCULOSKELETAL/RHEUMATOLOGICAL Hx Falls: No - GASTROINTESTINAL Other/Comment: COLON CANCER - PSYCHIATRIC Hx Substance Use: No - SURGICAL HISTORY Hx Appendectomy: Yes Hx Cholecystectomy: Yes - ANESTHESIA Hx Anesthesia: Yes Hx Anesthesia Reactions: No Physical Exam - Constitutional Appears: No Acute Distress - Head Exam Head Exam: NORMAL INSPECTION, NORMOCEPHALIC - Eye Exam Eye Exam: EOMI, Normal appearance, PERRL Pupil Exam: NORMAL ACCOMODATION - ENT Exam ENT Exam: Mucous Membranes Dry - Respiratory Exam Respiratory Exam: Decreased Breath Sounds, Wheezes, NORMAL BREATHING PATTERN - Cardiovascular Exam Cardiovascular Exam: REGULAR RHYTHM, RRR - GI/Abdominal Exam GI & Abdominal Exam: Normal Bowel Sounds, Soft - Extremities Exam Extremities exam: Positive for: normal inspection, pedal pulses present. Negative for: pedal edema, tenderness - Back Exam Back exam: NORMAL INSPECTION - Neurological Exam Neurological exam: Alert, CN II-XII Intact, Oriented x3 - Psychiatric Exam Psychiatric exam: Normal Affect, Normal Mood - Skin Skin Exam: Dry, Intact, Normal Color, Warm Results - Vital Signs Recent Vital Signs: Last Vital Signs Temp 99.8 F H 12/19/17 00:17 Pulse 99 H 12/18/17 23:04 Resp 18 12/18/17 23:04 BP 97/63 L 12/18/17 23:04 Pulse Ox 94 L 12/19/17 01:25 - Labs Result Diagrams: 12/19/17 04:52 12/19/17 04:52 Labs: Laboratory Results - last 24 hr 12/18/17 12/18/17 12/18/17 22:08 22:08 22:56 WBC 8.9 D RBC 3.86 Hgb 10.5 L Hct 31.8 L MCV 82.5 MCH 27.3 MCHC 33.1 RDW 19.1 H Plt Count 237 MPV 9.0 Neut % (Auto) 54.7 Lymph % (Auto) 23.0 Milam % (Auto) 20.5 H Eos % (Auto) 1.4 Baso % (Auto) 0.4 Neut # 4.9 Lymph # 2.0 Milam # 1.8 H Eos # 0.1 Baso # 0.0 Neutrophils % (Manual) 52 Lymphocytes % (Manual) 24 Monocytes % (Manual) 24 H Platelet Estimate Normal Hypochromasia (manual) Slight Anisocytosis (manual) Slight Puncture Site pCO2 pO2 HCO3 ABG pH ABG Total CO2 ABG O2 Saturation ABG Base Excess ABG Hemoglobin ABG Carboxyhemoglobin POC ABG HHb (Measured) ABG Methemoglobin Ac Test Hgb O2 Saturation Sodium 129 L Potassium 4.8 Chloride 99 Carbon Dioxide 28 Anion Gap 7 L BUN 4 L Creatinine 0.3 L Est GFR ( Amer) > 60 Est GFR (Non-Af Amer) > 60 Random Glucose 110 H Calcium 8.4 L Magnesium Total Bilirubin 0.8 AST 40 H D ALT 25 Alkaline Phosphatase 70 Troponin I NT-Pro-B Natriuret Pep Total Protein 7.6 Albumin 3.7 Globulin 3.9 Albumin/Globulin Ratio 1.0 Influenza Typ A,B (EIA) Negative for flu a/b 12/18/17 12/19/17 23:57 00:10 WBC RBC Hgb Hct MCV MCH MCHC RDW Plt Count MPV Neut % (Auto) Lymph % (Auto) Milam % (Auto) Eos % (Auto) Baso % (Auto) Neut # Lymph # Milam # Eos # Baso # Neutrophils % (Manual) Lymphocytes % (Manual) Monocytes % (Manual) Platelet Estimate Hypochromasia (manual) Anisocytosis (manual) Puncture Site Rr pCO2 43 pO2 59 L HCO3 26.6 ABG pH 7.41 ABG Total CO2 28.6 H ABG O2 Saturation 94.1 L ABG Base Excess 2.3 ABG Hemoglobin 10.1 L ABG Carboxyhemoglobin 3.0 H POC ABG HHb (Measured) 5.6 H ABG Methemoglobin 1.4 Ac Test Pos Hgb O2 Saturation 90.0 L Sodium Potassium Chloride Carbon Dioxide Anion Gap BUN Creatinine Est GFR ( Amer) Est GFR (Non-Af Amer) Random Glucose Calcium Magnesium 2.0 Total Bilirubin AST ALT Alkaline Phosphatase Troponin I < 0.0120 NT-Pro-B Natriuret Pep 69.3 Total Protein Albumin Globulin Albumin/Globulin Ratio Influenza Typ A,B (EIA) Assessment & Plan - Assessment and Plan (Free Text) Assessment: 72 Female with PMHx of Asthma, Hypothyroidism, Colon Cancer (newly diagnosed), Pulmonary TB (age 10) presents to the ED for SOB, body ache, fatigue. Plan: Bronchitis Imaging: CXR: Dense biapical pleural thickening with upper lobe scarring, fibrosis, bronchiectasis, cystic bullous changes; right greater than left. Diffuse increased interstitial lung markings throughout both lung madden. Additional scarring and or atelectasis at the lung bases. Some reticular opacities seen at the right upper and right lower lung zones. Correlation with chest CT may be helpful clinically indicated CT Chest: 1. Bilateral lung disease without any significant improvement in the pleural-parenchymal findings. An acute process is difficult to exclude if clinically suspected. Correlation with patient's pulmonary symptoms, pulmonary history and clinical pulmonary diagnosis is recommended. 2. No interim development of complicating pleural effusions are identified. 12/11/17 - Legionella negative, strep pneumonia negative; meningitis negative , H. Influenza Negative Procal < 0.05, Negative Flu Meds: NS @ 100cc/hr Duonebs Q6H, Doxy 100mg IVP Q12H Solumedrol 40mg IVP Q12H GERD Protonix 40mg IVP daily, Zofran PRN Recently admitted and treated for Influenza Type A and Mycoplasma Pneumonia Admitted 12/10-12/14/2017 Recently Diagnosed Colon Cancer Recently underwent Colonoscopy with biopsy - pending pathology report History of Asthma History of TB Hx Osteoporosis History of Hypothyroidism Continue Levothyroxine 50mg PO daily Prophylactic Measures GI PPX: Protonix 40mg IVP daily DVT PPX: SCDs, Lovenox 40mg SC daily DW Dr. Rowan, Lindsay Harris DO, PGY-1
[2017-12-19] MEDS ORDERED: Sodium Chloride 0.9% 1,000 ML ONE (03:40)
[2017-12-19] MEDS: Sodium Chloride 0.9% 1,000 ML IV SCH ×2 (03:42→13:11)
[2017-12-19] MEDS ORDERED: Albuterol-Ipratrop 3 mg / 0.5 (3 ml) UD ONE (03:46)
--- NOTE | 2017-12-19 04:43 | CT ---
EXAM: CT Chest Without Intravenous Contrast CT Abdomen Without Intravenous Contrast CLINICAL HISTORY: 72 years old, female; Pain; Chest pain and other: Rule out pneumonia; Patient HX: 12-10-17 images sent TECHNIQUE: Axial computed tomography images of the chest and abdomen without intravenous contrast. All CT scans at this facility use one or more dose reduction techniques, viz.: automated exposure control; ma/kV adjustment per patient size (including targeted exams where dose is matched to indication; i.e. head); or iterative reconstruction technique. 538 images are submitted.Limitations: Absence of IV contrast decreases sensitivity for detecting solid organ and vascular abnormality and injury. Coronal and sagittal reformatted images were created and reviewed. COMPARISON: CT - CHEST W/CONTRAST 2017-12-10 23:19 FINDINGS: CHEST: Lungs: There is bilateral upper lobe pleural-parenchymal consolidation with cystic changes bronchiectasis and peribronchial thickening with parenchymal retraction/fibrosis and calcification as well as pleural-parenchymal consolidation with surrounding reticular nodular infiltrates. There is reticular nodular infiltration involving both the lungs and posterior pleural-parenchymal consolidation involving the superior segment of bilateral lower lobes. Right upper lobe large bulla seen on image 13 series 3 unchanged from prior examination. Pleural space: No interim development of complicating pleural effusions are identified. No pneumothorax. Heart: Unremarkable. No cardiomegaly. No significant pericardial effusion. ABDOMEN:Limitations: Absence of IV contrast decreases sensitivity for detecting vascular and visceral injury and abnormality. Liver: Hepatic calcifications. Gallbladder and bile ducts: Cholecystectomy. Pancreas: Unremarkable. No ductal dilation. Spleen: Left upper quadrant splenule. Spleen calcification. Adrenals: Normal adrenal glands. Kidneys and ureters: Unremarkable. No obstructing stones. No hydronephrosis. Stomach and bowel: Unremarkable. No obstruction. No mucosal thickening. Intraperitoneal space: Unremarkable. No significant fluid collection. No free air. CHEST and ABDOMEN: Bones/joints: Unremarkable. No acute fracture. No dislocation. Soft tissues: Bilateral gluteus subcutaneous soft tissue infiltration with calcification. Vasculature: Unremarkable. No aortic aneurysm. Lymph nodes: Unremarkable. No enlarged lymph nodes. IMPRESSION: 1. Bilateral lung disease without any significant improvement in the pleural-parenchymal findings. An acute process is difficult to exclude if clinically suspected. Correlation with patient's pulmonary symptoms, pulmonary history and clinical pulmonary diagnosis is recommended. 2. No interim development of complicating pleural effusions are identified.
[2017-12-19 04:55] LABS: BASO % 0.3 % (0.0-2.0); EOS % 0.2 % (0.0-4.0); HEMOGLOBIN 10.2 g/dL (11.0-16.0); LYMPH # 1.1 K/uL (1.0-4.3); MEAN CORPUSCULAR HGB CONC 33.3 g/dL (33.0-37.0); NRBC % 0.1 % (0.0-2.0); RED CELL DISTRIBUTION WIDTH 18.6 % (11.5-14.5)
[2017-12-19 05:03] LABS: MEAN CORPUSCULAR HEMOGLOBIN 27.3 pg (27.0-31.0); MEAN PLATELET VOLUME 8.9 fL (7.2-11.7); MONO # 0.9 K/uL (0.0-0.8); MONO % 10.9 % (0.0-10.0); NEUT % 74.6 % (50.0-75.0); RBC 3.74 Mil/uL (3.80-5.20); WHITE BLOOD COUNT 8.1 K/uL (4.8-10.8)
[2017-12-19 06:19] LABS: ALBUMIN 3.6 g/dL (3.5-5.0); ALT/SGPT 30 U/L (9-52); AST/SGOT 19 U/L (14-36); BLOOD UREA NITROGEN 4 mg/dL (7-17); CALCIUM 8.2 mg/dl (8.6-10.4); GFR AFRICAN-AMERICAN > 60; GFR NON-AFRICAN AMERICAN > 60
[2017-12-19] MEDS ORDERED: Potassium Chloride 20 mEq ER Tab PO ONE ×2 (07:58→12:05)
[2017-12-19] MEDS: Albuterol-Ipratrop 3 mg / 0.5 (3 ml) UD INH SCH ×3 (08:00→19:12)
[2017-12-19] MEDS ORDERED: Budesonide 0.5 mg/2 ml Inhal Susp UD INH SCH (08:00)
--- NOTE | 2017-12-19 08:43 | RAD ---
Chest x-ray two views History: Shortness of breath. Comparison: CT scan dated 12/10/2017 Findings: Persistent biapical pleural thickening with associated fibrosis, scarring, and atelectasis. Associated bullous changes with cystic spaces noted at both lung apices ; right greater than left. Diffuse increased interstitial lung markings. Blunted left costophrenic angle. Heart size within normal limits. Degenerative changes in the spine and shoulders. Impression: No significant interval change.
--- NOTE | 2017-12-19 08:54 | RAD ---
Chest x-ray two views History: Cough congestion. Comparison: 12/18/2017 Findings: Dense biapical pleural thickening with upper lobe scarring, fibrosis, bronchiectasis, cystic bullous changes; right greater than left. Diffuse increased interstitial lung markings throughout both lung madden. Additional scarring and or atelectasis at the lung bases. Some reticular opacities seen at the right upper and right lower lung zones. Heart size within normal limits. Degenerative changes in the spine. Impression: Dense biapical pleural thickening with upper lobe scarring, fibrosis, bronchiectasis, cystic bullous changes; right greater than left. Diffuse increased interstitial lung markings throughout both lung madden. Additional scarring and or atelectasis at the lung bases. Some reticular opacities seen at the right upper and right lower lung zones. Correlation with chest CT may be helpful clinically indicated
[2017-12-19] MEDS ORDERED: Influenza Vaccine 60 mcg/0.5 mL SYR (4YR UP) IM ONE ×2 (08:58→10:30)
[2017-12-19] MEDS ORDERED: Pneumococcal 23-Valent Vaccine IM ONE ×2 (08:59→10:30)
[2017-12-19] MEDS ORDERED: Pantoprazole 40 mg EC Tab PO SCH (10:00)
[2017-12-19] MEDS: Enoxaparin 40 mg Syringe SC SCH (10:34)
--- NOTE | 2017-12-19 14:26 | CP.PCM.PN ---
<Maria FernandaBipinn - Last Filed: 12/19/17 20:10> Subjective - Date & Time of Evaluation Date of Evaluation: 12/19/17 Time of Evaluation: 07:21 - Subjective Subjective: Patient was seen and examined at bedside. Per nursing no acute events occurred overnight. The patient does report some cough and a little shortness of breath. The patient is tolerating diet with no nausea or vomiting associated with it. The patient denies any changes of vision, chest pain, lightheadedness , dizziness, syncopal episodes, abdominal pain, numbness or tingling in the lower extremities or any other complaints. Objective - Vital Signs/Intake and Output Vital Signs (last 24 hours): Temp Pulse Resp BP Pulse Ox 97.6 F 86 18 107/67 96 12/19/17 08:20 12/19/17 08:20 12/19/17 08:20 12/19/17 08:20 12/19/17 08:20 - Medications Medications: Current Medications Albuterol/Ipratropium (Duoneb 3 Mg/0.5 Mg (3 Ml) Ud) 3 ml INH RQ6 [facility] Last Admin: 12/19/17 13:11 Dose: 3 ml Enoxaparin Sodium (Lovenox) 40 mg SC DAILY [facility] Last Admin: 12/19/17 10:34 Dose: 40 mg Sodium Chloride (Sodium Chloride 0.9%) 1,000 mls @ 100 mls/hr IV .Q10H [facility] Last Admin: 12/19/17 13:11 Dose: Not Given Doxycycline Hyclate 100 mg/ (Sodium Chloride) 100 mls @ 100 mls/hr IVPB Q12H [facility] Last Admin: 12/19/17 08:58 Dose: 100 mls/hr Levothyroxine Sodium (Synthroid) 50 mcg PO DAILY@0630 [facility] Methylprednisolone (Solu-Medrol) 40 mg IVP BID [facility] Ondansetron HCl (Zofran Inj) 4 mg IVP Q6H PRN PRN Reason: Nausea/Vomiting Pantoprazole Sodium (Protonix Inj) 40 mg IVP DAILY [facility] - Labs Labs: 12/19/17 04:52 12/19/17 04:52 - Head Exam Head Exam: ATRAUMATIC, NORMAL INSPECTION, NORMOCEPHALIC - Eye Exam Eye Exam: EOMI, Normal appearance, PERRL. absent: Nystagmus, Periorbital tenderness Pupil Exam: NORMAL ACCOMODATION, PERRL. absent: Irregular, Unequal - ENT Exam ENT Exam: Mucous Membranes Moist, Normal Oropharynx - Neck Exam Neck Exam: Normal Inspection. absent: Lymphadenopathy, Thyromegaly - Respiratory Exam Respiratory Exam: Clear to Ausculation Bilateral, NORMAL BREATHING PATTERN. absent: Chest Wall Tenderness, Prolonged Expiratory Phase, Respiratory Distress - Cardiovascular Exam Cardiovascular Exam: REGULAR RHYTHM, RRR, +S1, +S2. absent: Gallop, Rubs - GI/Abdominal Exam GI & Abdominal Exam: Soft, Normal Bowel Sounds. absent: Rigid, Hyperactive Bowel Sounds - Back Exam Back Exam: NORMAL INSPECTION. absent: CVA tenderness (L), CVA tenderness (R), paraspinal tenderness - Neurological Exam Neurological Exam: Alert, Awake, CN II-XII Intact, Normal Gait, Oriented x3 - Psychiatric Exam Psychiatric exam: Normal Affect, Normal Mood - Skin Skin Exam: Dry, Intact, Normal Color, Warm Assessment and Plan - Assessment and Plan (Free Text) Assessment: 72 Female with PMHx of Asthma, Hypothyroidism, Colon Cancer (newly diagnosed), Pulmonary TB (age 10) presents to the ED for SOB, body ache, fatigue. Plan: Bronchitis Imaging: CXR: Dense biapical pleural thickening with upper lobe scarring, fibrosis, bronchiectasis, cystic bullous changes; right greater than left. Diffuse increased interstitial lung markings throughout both lung madden. Additional scarring and or atelectasis at the lung bases. Some reticular opacities seen at the right upper and right lower lung zones. Correlation with chest CT may be helpful clinically indicated CT Chest: 1. Bilateral lung disease without any significant improvement in the pleural-parenchymal findings. An acute process is difficult to exclude if clinically suspected. Correlation with patient's pulmonary symptoms, pulmonary history and clinical pulmonary diagnosis is recommended. 2. No interim development of complicating pleural effusions are identified. 12/11/17 - Legionella negative, strep pneumonia negative; meningitis negative , H. Influenza Negative Procal < 0.05, Negative Flu Repeat CXR in the A.M. Meds: Tamilfu 75mg BID NS @ 100cc/hr Duonebs Q6H, Doxy 100mg IVP Q12H Solumedrol 40mg IVP Q12H GERD Protonix 40mg IVP daily, Zofran PRN Diet changed to soft diet. Recently admitted and treated for Influenza Type A and Mycoplasma Pneumonia Admitted 12/10-12/14/2017 Recently Diagnosed Colon Cancer Recently underwent Colonoscopy with biopsy - pending pathology report History of Asthma Restart home medications. History of Hypothyroidism Continue Levothyroxine 50mg PO daily Prophylactic Measures GI PPX: Protonix 40mg IVP daily DVT PPX: SCDs, Lovenox 40mg SC daily <Igor Parra H - Last Filed: 12/20/17 07:24> Objective - Vital Signs/Intake and Output Vital Signs (last 24 hours): Temp Pulse Resp BP Pulse Ox 98.4 F 94 H 20 111/64 96 12/19/17 23:15 12/19/17 23:15 12/19/17 23:15 12/19/17 23:15 12/20/17 00:00 Intake and Output: 12/20/17 12/20/17 06:59 18:59 Intake Total 1000 Balance 1000 - Medications Medications: Current Medications Albuterol/Ipratropium (Duoneb 3 Mg/0.5 Mg (3 Ml) Ud) 3 ml INH RQ6 [facility] Last Admin: 12/20/17 01:30 Dose: Not Given Enoxaparin Sodium (Lovenox) 40 mg SC DAILY [facility] Last Admin: 12/19/17 10:34 Dose: 40 mg Guaifenesin (Robitussin) 100 mg PO Q4H PRN PRN Reason: Cough Last Admin: 12/20/17 05:06 Dose: 100 mg Sodium Chloride (Sodium Chloride 0.9%) 1,000 mls @ 100 mls/hr IV .Q10H [facility] Last Admin: 12/20/17 00:29 Dose: 100 mls/hr Doxycycline Hyclate 100 mg/ (Sodium Chloride) 100 mls @ 100 mls/hr IVPB Q12H [facility] Last Admin: 12/20/17 05:46 Dose: 100 mls/hr Levothyroxine Sodium (Synthroid) 50 mcg PO DAILY@0630 [facility] Last Admin: 12/20/17 05:45 Dose: 50 mcg Methylprednisolone (Solu-Medrol) 40 mg IVP BID [facility] Last Admin: 12/19/17 17:20 Dose: 40 mg Ondansetron HCl (Zofran Inj) 4 mg IVP Q6H PRN PRN Reason: Nausea/Vomiting Last Admin: 12/19/17 17:25 Dose: 4 mg Pantoprazole Sodium (Protonix Inj) 40 mg IVP DAILY [facility] - Labs Labs: 12/20/17 06:33 12/20/17 06:33 Attending/Attestation - Attestation I have personally seen and examined this patient.: Yes I have fully participated in the care of the patient.: Yes I have reviewed all pertinent clinical information, including history, physical exam and plan: Yes Notes (Text): 12/20/17 07:20 Medical attending: Patient was seen and examined by me, agrees the above note by medical i d sales I reviewed the above note by the resident and agree. The patient was just recently discharged on 12/14. At that time she was tested positive for influenza as well as mycoplasma. At that time she was on by mouth Tamiflu as well as IV Avelox. She explains to us that since then she still hasn' t been doing very well though have a lot of coughing and shortness of breath and so she decided to come back again. At that time she had a CT scan of the lungs showing very extensive upper lobe bilateral scarring of the apices of lungs. There was a history of TB that was treated when she was 10 years old At this time around she had another repeat CAT scan done this did not show any significant changes from before. It still shows as mentioned previously that she has very significant scarring of the upper lobes bilaterally area At this time were continuing with the Tamiflu as well as IV antibiotics, supportive care Thank you very much, Igor Parra
[2017-12-19] MEDS: MethylPREDNISolone 40 mg Vial IVP SCH (17:20)
[2017-12-19] MEDS: guaiFENesin 100 mg/5 ml Syrup UD PO PRN (20:58)
[2017-12-20] MEDS: Sodium Chloride 0.9% 1,000 ML IV SCH ×3 (00:29→11:05)
[2017-12-20] MEDS: guaiFENesin 100 mg/5 ml Syrup UD PO PRN ×2 (01:05→05:06)
[2017-12-20] MEDS: Albuterol-Ipratrop 3 mg / 0.5 (3 ml) UD INH SCH ×4 (01:30→19:10)
[2017-12-20] MEDS: Levothyroxine 50 MCG TAB PO SCH (05:45)
[2017-12-20 06:51] LABS: ALB/GLOB RATIO 1.1 (1.0-2.1); ALBUMIN 2.9 g/dL (3.5-5.0); ALT/SGPT 25 U/L (9-52); AST/SGOT 14 U/L (14-36); BLOOD UREA NITROGEN 7 mg/dL (7-17); CALCIUM 7.8 mg/dl (8.6-10.4); GFR AFRICAN-AMERICAN > 60; GFR NON-AFRICAN AMERICAN > 60; MAGNESIUM 1.9 mg/dL (1.6-2.3)
[2017-12-20 07:00] LABS: BASO % 0.1 % (0.0-2.0); LYMPH # 1.4 K/uL (1.0-4.3); LYMPH % 16.5 % (20.0-40.0); MEAN CELL VOLUME 82.4 fL (81.0-99.0); MEAN CORPUSCULAR HEMOGLOBIN 27.4 pg (27.0-31.0); MEAN CORPUSCULAR HGB CONC 33.2 g/dL (33.0-37.0); MEAN PLATELET VOLUME 9.2 fL (7.2-11.7); MONO # 1.4 K/uL (0.0-0.8); MONO % 16.1 % (0.0-10.0); NEUT # 5.7 K/uL (1.8-7.0); NEUT % 67.3 % (50.0-75.0); RBC 3.27 Mil/uL (3.80-5.20); RED CELL DISTRIBUTION WIDTH 19.1 % (11.5-14.5); WHITE BLOOD COUNT 8.4 K/uL (4.8-10.8)
--- NOTE | 2017-12-20 09:57 | CP.PCM.PN ---
<Christian Irving - Last Filed: 12/20/17 21:28> Subjective - Date & Time of Evaluation Date of Evaluation: 12/20/17 Time of Evaluation: 08:52 - Subjective Subjective: Christian Cerda Pharmacist In Charge-PGY1 Patient was seen and examined at bedside. Per nursing no acute events occurred. The patient reports a cough with phlegm production. The patient also reports some difficulty with the food and reports nausea after eating. The patient also reports some chills also. The patient denies any chest pain, lightheadedness, dizziness, changes in vision, abdominal pain, fevers, headaches, or any other complaints. Objective - Vital Signs/Intake and Output Vital Signs (last 24 hours): Temp Pulse Resp BP Pulse Ox 97.7 F 67 18 100/60 99 12/20/17 08:07 12/20/17 08:07 12/20/17 08:07 12/20/17 08:07 12/20/17 08:07 Intake and Output: 12/20/17 12/20/17 06:59 18:59 Intake Total 1000 Balance 1000 - Medications Medications: Current Medications Albuterol/Ipratropium (Duoneb 3 Mg/0.5 Mg (3 Ml) Ud) 3 ml INH RQ6 [facility] Last Admin: 12/20/17 07:41 Dose: 3 ml Enoxaparin Sodium (Lovenox) 40 mg SC DAILY [facility] Last Admin: 12/19/17 10:34 Dose: 40 mg Guaifenesin (Robitussin) 100 mg PO Q4H PRN PRN Reason: Cough Last Admin: 12/20/17 05:06 Dose: 100 mg Sodium Chloride (Sodium Chloride 0.9%) 1,000 mls @ 100 mls/hr IV .Q10H [facility] Last Admin: 12/20/17 00:29 Dose: 100 mls/hr Doxycycline Hyclate 100 mg/ (Sodium Chloride) 100 mls @ 100 mls/hr IVPB Q12H [facility] Last Admin: 12/20/17 05:46 Dose: 100 mls/hr Levothyroxine Sodium (Synthroid) 50 mcg PO DAILY@0630 [facility] Last Admin: 12/20/17 05:45 Dose: 50 mcg Methylprednisolone (Solu-Medrol) 40 mg IVP BID [facility] Last Admin: 12/19/17 17:20 Dose: 40 mg Ondansetron HCl (Zofran Inj) 4 mg IVP Q6H PRN PRN Reason: Nausea/Vomiting Last Admin: 12/19/17 17:25 Dose: 4 mg Pantoprazole Sodium (Protonix Inj) 40 mg IVP DAILY [facility] - Labs Labs: 12/20/17 06:33 12/20/17 06:33 - Head Exam Head Exam: ATRAUMATIC, NORMAL INSPECTION, NORMOCEPHALIC - Eye Exam Eye Exam: EOMI, Normal appearance, PERRL. absent: Periorbital tenderness Pupil Exam: NORMAL ACCOMODATION, PERRL. absent: Irregular, Unequal - ENT Exam ENT Exam: Mucous Membranes Moist, Normal Exam, Normal Oropharynx - Neck Exam Neck Exam: absent: Lymphadenopathy, Meningismus, Thyromegaly - Respiratory Exam Respiratory Exam: Clear to Ausculation Bilateral, NORMAL BREATHING PATTERN. absent: Chest Wall Tenderness, Prolonged Expiratory Phase, Respiratory Distress - Cardiovascular Exam Cardiovascular Exam: REGULAR RHYTHM, RRR, +S1, +S2. absent: Gallop, Rubs - GI/Abdominal Exam GI & Abdominal Exam: Soft, Normal Bowel Sounds - Extremities Exam Extremities Exam: Full ROM. absent: Joint Swelling, Pedal Edema, Tenderness - Back Exam Back Exam: NORMAL INSPECTION. absent: CVA tenderness (L), CVA tenderness (R), paraspinal tenderness - Neurological Exam Neurological Exam: Alert, Awake, CN II-XII Intact - Psychiatric Exam Psychiatric exam: Normal Affect, Normal Mood - Skin Skin Exam: Dry, Intact, Normal Color Assessment and Plan - Assessment and Plan (Free Text) Assessment: 72 Female with PMHx of Asthma, Hypothyroidism, Colon Cancer (newly diagnosed), Pulmonary TB (age 10) presents to the ED for SOB, body ache, fatigue. Plan: Bronchitis Imaging: CXR: Dense biapical pleural thickening with upper lobe scarring, fibrosis, bronchiectasis, cystic bullous changes; right greater than left. Diffuse increased interstitial lung markings throughout both lung madden. Additional scarring and or atelectasis at the lung bases. Some reticular opacities seen at the right upper and right lower lung zones. Correlation with chest CT may be helpful clinically indicated CT Chest: 1. Bilateral lung disease without any significant improvement in the pleural-parenchymal findings. An acute process is difficult to exclude if clinically suspected. Correlation with patient's pulmonary symptoms, pulmonary history and clinical pulmonary diagnosis is recommended. 2. No interim development of complicating pleural effusions are identified. 12/11/17 - Legionella negative, strep pneumonia negative; meningitis negative , H. Influenza Negative Procal < 0.05, Negative Flu Repeat CXR in the A.M. Meds: Tamilfu 75mg BID NS @ 100cc/hr Duonebs Q6H, Doxy 100mg IVP Q12H Solumedrol 40mg IVP Q12H Nausea after eating Diet changed to soft diet. Encouraged patient to eat smaller bites of meal. Will re-evaluate at next exam Phenergan DM started. GERD Protonix 40mg IVP daily, Zofran PRN Diet changed to soft diet. Recently admitted and treated for Influenza Type A and Mycoplasma Pneumonia Admitted 12/10-12/14/2017 Recently Diagnosed Colon Cancer Recently underwent Colonoscopy with biopsy - pending pathology report History of Asthma Restart home medications. History of Hypothyroidism Continue Levothyroxine 50mg PO daily Prophylactic Measures GI PPX: Protonix 40mg IVP daily DVT PPX: SCDs, Lovenox 40mg SC daily <Igor Parra H - Last Filed: 12/21/17 07:39> Objective - Vital Signs/Intake and Output Vital Signs (last 24 hours): Temp Pulse Resp BP Pulse Ox 98.0 F 71 20 107/67 96 12/21/17 04:00 12/21/17 04:00 12/21/17 04:00 12/21/17 04:00 12/21/17 04:00 Intake and Output: 12/21/17 12/21/17 06:59 18:59 Intake Total 2140 Balance 2140 - Medications Medications: Current Medications Albuterol/Ipratropium (Duoneb 3 Mg/0.5 Mg (3 Ml) Ud) 3 ml INH RQ6 [facility] Last Admin: 12/21/17 01:37 Dose: Not Given Enoxaparin Sodium (Lovenox) 40 mg SC DAILY [facility] Last Admin: 12/20/17 11:01 Dose: 40 mg Sodium Chloride (Sodium Chloride 0.9%) 1,000 mls @ 100 mls/hr IV .Q10H [facility] Last Admin: 12/20/17 11:05 Dose: 100 mls/hr Doxycycline Hyclate 100 mg/ (Sodium Chloride) 100 mls @ 100 mls/hr IVPB Q12H [facility] Last Admin: 12/21/17 05:59 Dose: 100 mls/hr Levothyroxine Sodium (Synthroid) 50 mcg PO DAILY@0630 [facility] Last Admin: 12/21/17 05:58 Dose: 50 mcg Methylprednisolone (Solu-Medrol) 40 mg IVP BID [facility] Last Admin: 12/20/17 19:00 Dose: 40 mg Ondansetron HCl (Zofran Inj) 4 mg IVP Q6H PRN PRN Reason: Nausea/Vomiting Last Admin: 12/20/17 15:53 Dose: 4 mg Pantoprazole Sodium (Protonix Inj) 40 mg IVP DAILY [facility] Last Admin: 12/20/17 11:03 Dose: 40 mg Promethazine HCl/Dextromethorphan (Phenergan Dm Syrup) 5 ml PO Q6H PRN PRN Reason: Nausea/Vomiting/ COUGH Last Admin: 12/21/17 05:58 Dose: 5 ml - Labs Labs: 12/21/17 06:30 12/21/17 06:30 Attending/Attestation - Attestation I have personally seen and examined this patient.: Yes I have fully participated in the care of the patient.: Yes I have reviewed all pertinent clinical information, including history, physical exam and plan: Yes Notes (Text): 12/21/17 07:38 Medical attending: Patient was seen and examined by me with the senior medical transcriptionist. I reviewed the above note by senior medical transcriptionist and agree. As mentioned previously the patient's CT scan of the lungs show extensive scarring and the bilateral apices of her lungs. She was recently discharged on after being treated for influenza as well as positive mycoplasma. At that time she was on Tamiflu and Avelox. Because of the patient's childhood history with the extensive lung disease that she's had monitor the patient additionally. Were continuing with the Tamiflu as well as IV antibiotics. We did get a return on February calcitonin level is low it' s less than 0.05. A repeat flu was also negative as well. Nevertheless she still had a lot of coughing and rales/rhonchi when we saw her She does not have white blood cell count, currently is afebrile as well thank you Igor Parra
--- NOTE | 2017-12-20 10:35 | RAD ---
HISTORY: shortness of breath COMPARISON: CT scan dated 12/19/2017. TECHNIQUE: Chest PA and lateral FINDINGS: LUNGS: Biapical fibrotic changes with bronchiectasis and large right apical bulla re- demonstrated. PLEURA: No significant pleural effusion identified. No pneumothorax apparent. CARDIOVASCULAR: Unchanged. OSSEOUS STRUCTURES: Unchanged. VISUALIZED UPPER ABDOMEN: Right upper quadrant surgical clips redemonstrated. OTHER FINDINGS: None. IMPRESSION: No stable biapical fibrotic changes with bronchiectasis and large right apical bulla. No acute pulmonary disease
[2017-12-20] MEDS: Enoxaparin 40 mg Syringe SC SCH (11:01)
[2017-12-20] MEDS: MethylPREDNISolone 40 mg Vial IVP SCH ×2 (11:01→19:00)
--- NOTE | 2017-12-20 16:26 | CARD ---
APPROVED REPORT EKG Measurement Heart [id number] [place] 130P74 [id number] <Conclusion> Sinus tachycardia with occasional premature ventricular complexes Left axis deviation Incomplete left bundle branch block Left ventricular hypertrophy with repolarization abnormality Abnormal ECG
--- NOTE | 2017-12-20 16:26 | CARD ---
APPROVED REPORT EKG Measurement Heart [id number] [place] 130P76 [id number] <Conclusion> Sinus tachycardia with occasional premature ventricular complexes and fusion complexes Possible Left atrial enlargement Left axis deviation Left ventricular hypertrophy with repolarization abnormality Abnormal ECG
[2017-12-20] MEDS: Promethazine DM 6.25 mg-15 mg/5 ml Syrup PO PRN (23:07)
[2017-12-21] MEDS: Albuterol-Ipratrop 3 mg / 0.5 (3 ml) UD INH SCH ×4 (01:37→19:06)
[2017-12-21] MEDS: Levothyroxine 50 MCG TAB PO SCH (05:58)
[2017-12-21] MEDS: Promethazine DM 6.25 mg-15 mg/5 ml Syrup PO PRN ×2 (05:58→17:46)
[2017-12-21 06:42] LABS: BASO % 0.2 % (0.0-2.0); LYMPH # 1.3 K/uL (1.0-4.3); LYMPH % 18.7 % (20.0-40.0); MEAN CELL VOLUME 81.8 fL (81.0-99.0); MEAN CORPUSCULAR HEMOGLOBIN 27.5 pg (27.0-31.0); MEAN CORPUSCULAR HGB CONC 33.6 g/dL (33.0-37.0); MEAN PLATELET VOLUME 9.1 fL (7.2-11.7); MONO # 0.8 K/uL (0.0-0.8); MONO % 11.3 % (0.0-10.0); NEUT % 69.8 % (50.0-75.0); RBC 3.27 Mil/uL (3.80-5.20); RED CELL DISTRIBUTION WIDTH 18.8 % (11.5-14.5); WHITE BLOOD COUNT 7.1 K/uL (4.8-10.8)
[2017-12-21 07:01] LABS: ALT/SGPT 23 U/L (9-52); AST/SGOT 19 U/L (14-36); BLOOD UREA NITROGEN 8 mg/dL (7-17); CALCIUM 8.1 mg/dl (8.6-10.4); GFR AFRICAN-AMERICAN > 60; GFR NON-AFRICAN AMERICAN > 60
[2017-12-21] MEDS: Sodium Chloride 0.9% 1,000 ML IV SCH (11:13)
[2017-12-21] MEDS: Enoxaparin 40 mg Syringe SC SCH (11:14)
[2017-12-21] MEDS: MethylPREDNISolone 40 mg Vial IVP SCH ×2 (11:14→17:43)
--- NOTE | 2017-12-21 11:48 | CP.PCM.PN ---
<Christian Irving - Last Filed: 12/21/17 18:30> Subjective - Date & Time of Evaluation Date of Evaluation: 12/21/17 Time of Evaluation: 07:47 - Subjective Subjective: Christian Cerda Fine Arts Teacher-PGY1 Patient was seen and examined at bedside. Per nursing no acute events occurred. The patient reports a cough with phlegm production. The patient states at night it's the most severe. She also reports difficulty sleeping as a result. The patient denies any chest pain, lightheadedness, dizziness, changes in vision , abdominal pain, fevers, headaches, or any other complaints. Objective - Vital Signs/Intake and Output Vital Signs (last 24 hours): Temp Pulse Resp BP Pulse Ox 97.9 F 79 18 118/65 96 12/21/17 08:28 12/21/17 08:28 12/21/17 08:28 12/21/17 08:28 12/21/17 08:28 Intake and Output: 12/21/17 12/21/17 06:59 18:59 Intake Total 2140 Balance 2140 - Medications Medications: Current Medications Albuterol/Ipratropium (Duoneb 3 Mg/0.5 Mg (3 Ml) Ud) 3 ml INH RQ6 [facility] Last Admin: 12/21/17 08:13 Dose: Not Given Enoxaparin Sodium (Lovenox) 40 mg SC DAILY [facility] Last Admin: 12/21/17 11:14 Dose: 40 mg Sodium Chloride (Sodium Chloride 0.9%) 1,000 mls @ 100 mls/hr IV .Q10H [facility] Last Admin: 12/21/17 11:13 Dose: 100 mls/hr Doxycycline Hyclate 100 mg/ (Sodium Chloride) 100 mls @ 100 mls/hr IVPB Q12H [facility] Last Admin: 12/21/17 05:59 Dose: 100 mls/hr Azithromycin 500 mg/ Sodium (Chloride) 250 mls @ 250 mls/hr IVPB DAILY [facility] Levothyroxine Sodium (Synthroid) 50 mcg PO DAILY@0630 [facility] Last Admin: 12/21/17 05:58 Dose: 50 mcg Methylprednisolone (Solu-Medrol) 40 mg IVP BID [facility] Last Admin: 12/21/17 11:14 Dose: 40 mg Ondansetron HCl (Zofran Inj) 4 mg IVP Q6H PRN PRN Reason: Nausea/Vomiting Last Admin: 12/20/17 15:53 Dose: 4 mg Pantoprazole Sodium (Protonix Inj) 40 mg IVP DAILY [facility] Last Admin: 12/21/17 11:14 Dose: 40 mg Promethazine HCl/Dextromethorphan (Phenergan Dm Syrup) 5 ml PO Q6H PRN PRN Reason: Nausea/Vomiting/ COUGH Last Admin: 12/21/17 05:58 Dose: 5 ml - Labs Labs: 12/21/17 06:30 12/21/17 06:30 - Head Exam Head Exam: ATRAUMATIC, NORMAL INSPECTION, NORMOCEPHALIC - Eye Exam Eye Exam: EOMI, Normal appearance, PERRL. absent: Periorbital tenderness Pupil Exam: NORMAL ACCOMODATION, PERRL. absent: Irregular, Unequal - ENT Exam ENT Exam: Mucous Membranes Moist, Normal Oropharynx - Neck Exam Neck Exam: absent: Lymphadenopathy, Thyromegaly - Respiratory Exam Respiratory Exam: Clear to Ausculation Bilateral, NORMAL BREATHING PATTERN. absent: Chest Wall Tenderness, Prolonged Expiratory Phase, Respiratory Distress - Cardiovascular Exam Cardiovascular Exam: REGULAR RHYTHM, +S1, +S2 - GI/Abdominal Exam GI & Abdominal Exam: Soft, Normal Bowel Sounds. absent: Rigid, Hyperactive Bowel Sounds - Extremities Exam Extremities Exam: Full ROM, Normal Inspection. absent: Joint Swelling, Pedal Edema - Back Exam Back Exam: NORMAL INSPECTION. absent: CVA tenderness (L), CVA tenderness (R), paraspinal tenderness - Neurological Exam Neurological Exam: Alert, Awake, CN II-XII Intact, Oriented x3 - Psychiatric Exam Psychiatric exam: Normal Affect, Normal Mood - Skin Skin Exam: Dry, Intact, Normal Color Assessment and Plan - Assessment and Plan (Free Text) Assessment: 72 Female with PMHx of Asthma, Hypothyroidism, Colon Cancer (newly diagnosed), Pulmonary TB (age 10) presents to the ED for SOB, body ache, fatigue. Plan: Imaging: CXR: Dense biapical pleural thickening with upper lobe scarring, fibrosis, bronchiectasis, cystic bullous changes; right greater than left. Diffuse increased interstitial lung markings throughout both lung madden. Additional scarring and or atelectasis at the lung bases. Some reticular opacities seen at the right upper and right lower lung zones. Correlation with chest CT may be helpful clinically indicated CT Chest: 1. Bilateral lung disease without any significant improvement in the pleural-parenchymal findings. An acute process is difficult to exclude if clinically suspected. Correlation with patient's pulmonary symptoms, pulmonary history and clinical pulmonary diagnosis is recommended. 2. No interim development of complicating pleural effusions are identified. 12/11/17 - Legionella negative, strep pneumonia negative; meningitis negative , H. Influenza Negative Procal < 0.05, Negative Flu Repeat CXR in the A.M. (12/22/17) Meds: Azithromycin 500mg Daily Tamilfu 75mg BID NS @ 100cc/hr Duonebs Q6H, Doxy 100mg IVP Q12H Solumedrol 40mg IVP Q12H Nausea after eating Continue soft mechanical diet . Encouraged patient to eat smaller bites of meal. Will re-evaluate at next exam Continue Phenergan DM. GERD Protonix 40mg IVP daily Contineu soft mechanical diet Recently admitted and treated for Influenza Type A and Mycoplasma Pneumonia Admitted 12/10-12/14/2017 Recently Diagnosed Colon Cancer Recently underwent Colonoscopy with biopsy - pending pathology report History of Asthma Restart home medications. History of Hypothyroidism Continue Levothyroxine 50mg PO daily Prophylactic Measures GI PPX: Protonix 40mg IVP daily DVT PPX: SCDs, Lovenox 40mg SC daily <Igor Parra - Last Filed: 12/22/17 07:36> Objective - Vital Signs/Intake and Output Vital Signs (last 24 hours): Temp Pulse Resp BP Pulse Ox 97.9 F 81 20 107/61 96 12/21/17 23:15 12/21/17 23:15 12/21/17 23:15 12/21/17 23:15 12/21/17 23:15 Intake and Output: 12/22/17 12/22/17 06:59 18:59 Intake Total 950 Balance 950 - Medications Medications: Current Medications Albuterol/Ipratropium (Duoneb 3 Mg/0.5 Mg (3 Ml) Ud) 3 ml INH RQ6 [facility] Last Admin: 12/22/17 01:51 Dose: 3 ml Enoxaparin Sodium (Lovenox) 40 mg SC DAILY [facility] Last Admin: 12/21/17 11:14 Dose: 40 mg Doxycycline Hyclate 100 mg/ (Sodium Chloride) 100 mls @ 100 mls/hr IVPB Q12H [facility] Last Admin: 12/22/17 06:28 Dose: 100 mls/hr Azithromycin 500 mg/ Sodium (Chloride) 250 mls @ 250 mls/hr IVPB DAILY [facility] Last Admin: 12/21/17 13:17 Dose: 250 mls/hr Levothyroxine Sodium (Synthroid) 50 mcg PO DAILY@0630 [facility] Last Admin: 12/22/17 07:35 Dose: 50 mcg Methylprednisolone (Solu-Medrol) 40 mg IVP BID [facility] Last Admin: 12/21/17 17:43 Dose: 40 mg Ondansetron HCl (Zofran Inj) 4 mg IVP Q6H PRN PRN Reason: Nausea/Vomiting Last Admin: 12/20/17 15:53 Dose: 4 mg Pantoprazole Sodium (Protonix Inj) 40 mg IVP DAILY [facility] Last Admin: 12/21/17 11:14 Dose: 40 mg Polyethylene Glycol (Miralax) 17 gm PO DAILY [facility] Last Admin: 12/21/17 16:34 Dose: 17 gm Promethazine HCl/Dextromethorphan (Phenergan Dm Syrup) 5 ml PO Q6H PRN PRN Reason: Nausea/Vomiting/ COUGH Last Admin: 12/22/17 00:21 Dose: 5 ml - Labs Labs: 12/22/17 06:25 12/22/17 06:25 Attending/Attestation - Attestation I have personally seen and examined this patient.: Yes I have fully participated in the care of the patient.: Yes I have reviewed all pertinent clinical information, including history, physical exam and plan: Yes Notes (Text): 12/22/17 07:36 Medical attending: Patient was seen and examined by me, agree with the above note by lead medical technologist. At this time patient was not in any acute distress. And I came and saw her she still had some very minimal wheezes on physical exam as documented before she was recently in the hospital on 12/14 was discharged then at that time she is being treated for influenza as well as a serum positive mycoplasma IgM During this hospitalization repeat blood cultures as well as following blood work so far they've been stable. Recheck pro-calcitonin this was negative. We also repeated a CT scan of the chest which we showed that she has a lot of scarring bilateral apices of her lungs. This appears consistent with the patient 's history of lung disease during her very early childhood worker .Nevertheless we've kept her on azithromycin as well as Tamiflu has also been getting slow intravenous fluids as well With the help of a clinical research spec we explained to her that it's possible that she could be discharged tomorrow depending on how her chest x-ray looks Thank you very much, Igor Parra
[2017-12-21] MEDS: Azithromycin 500 MG in Sodium Chloride 0.9% 250 ML IVPB SCH (13:17)
[2017-12-21] MEDS: POLYETHYLENE GLYCOL 3350 17 GM/Dose PACKET PO SCH (16:34)
[2017-12-22] MEDS: Sodium Chloride 0.9% 1,000 ML IV SCH (00:20)
[2017-12-22] MEDS: Promethazine DM 6.25 mg-15 mg/5 ml Syrup PO PRN ×2 (00:21→09:39)
[2017-12-22 01:14] VITALS: RESP 20
[2017-12-22] MEDS: Albuterol-Ipratrop 3 mg / 0.5 (3 ml) UD INH SCH ×2 (01:51→07:41)
[2017-12-22 07:09] LABS: BASO % 0.1 % (0.0-2.0); HEMOGLOBIN 10.5 g/dL (11.0-16.0); LYMPH # 1.8 K/uL (1.0-4.3); LYMPH % 25.9 % (20.0-40.0); MEAN CELL VOLUME 82.9 fL (81.0-99.0); MEAN CORPUSCULAR HEMOGLOBIN 27.8 pg (27.0-31.0); MEAN CORPUSCULAR HGB CONC 33.6 g/dL (33.0-37.0); MEAN PLATELET VOLUME 9.1 fL (7.2-11.7); MONO # 0.8 K/uL (0.0-0.8); MONO % 11.6 % (0.0-10.0); NEUT # 4.5 K/uL (1.8-7.0); NEUT % 62.4 % (50.0-75.0); NRBC % 0.1 % (0.0-2.0); RBC 3.78 Mil/uL (3.80-5.20); RED CELL DISTRIBUTION WIDTH 18.7 % (11.5-14.5); WHITE BLOOD COUNT 7.1 K/uL (4.8-10.8)
[2017-12-22 07:10] LABS: ALB/GLOB RATIO 1.1 (1.0-2.1); ALBUMIN 3.5 g/dL (3.5-5.0); ALT/SGPT 16 U/L (9-52); AST/SGOT 25 U/L (14-36); BLOOD UREA NITROGEN 8 mg/dL (7-17); CALCIUM 8.7 mg/dl (8.6-10.4); GFR AFRICAN-AMERICAN > 60; GFR NON-AFRICAN AMERICAN > 60; MAGNESIUM 1.8 mg/dL (1.6-2.3)
[2017-12-22] MEDS: Levothyroxine 50 MCG TAB PO SCH (07:35)
[2017-12-22] MEDS: POLYETHYLENE GLYCOL 3350 17 GM/Dose PACKET PO SCH (09:38)
[2017-12-22] MEDS: Azithromycin 500 MG in Sodium Chloride 0.9% 250 ML IVPB SCH (09:39)
[2017-12-22] MEDS: Enoxaparin 40 mg Syringe SC SCH (09:39)
[2017-12-22] MEDS: MethylPREDNISolone 40 mg Vial IVP SCH (09:39)
--- NOTE | 2017-12-22 09:54 | RAD ---
HISTORY: shortness of breath COMPARISON: 12/10/2017 single-view chest. 12/19/2017 CT thorax TECHNIQUE: Chest PA and lateral FINDINGS: LUNGS: Biapical scarring, cystic changes and perhaps cavity right upper lobe. Retraction of the bobby reflecting chronic presumed granulomatous process. PLEURA: Pleural thickening, pleural scarring left greater than right. CARDIOVASCULAR: No radiographic findings to suggest acute or significant cardiovascular disease. OSSEOUS STRUCTURES: No significant abnormalities. VISUALIZED UPPER ABDOMEN: Normal. OTHER FINDINGS: None. IMPRESSION: No significant interval change compared to the prior examination(s).
[2017-12-22 16:56] VITALS: BP 134/77; PULSE 103; TEMP 98.2; O2SAT 98
--- NOTE | 2017-12-22 17:46 | CP.PCM.DIS ---
<Maria FernandaJean ClaudeFayville - Last Filed: 12/22/17 18:59> Provider - Provider Date of Admission: 12/21/17 14:59 Attending physician: Surinder Rowan MD Primary care physician: Titus Consults: None Time Spent in preparation of Discharge (in minutes): 45 Hospital Course - Lab Results Lab Results: Most Recent Lab Values WBC 7.1 K/uL (4.8-10.8) 12/22/17 06:25 RBC 3.78 Mil/uL (3.80-5.20) L 12/22/17 06:25 Hgb 10.5 g/dL (11.0-16.0) L 12/22/17 06:25 Hct 31.4 % (34.0-47.0) L 12/22/17 06:25 MCV 82.9 fL (81.0-99.0) 12/22/17 06:25 MCH 27.8 pg (27.0-31.0) 12/22/17 06:25 MCHC 33.6 g/dL (33.0-37.0) 12/22/17 06:25 RDW 18.7 % (11.5-14.5) H 12/22/17 06:25 Plt Count 256 K/uL (130-400) 12/22/17 06:25 MPV 9.1 fL (7.2-11.7) 12/22/17 06:25 Neut % (Auto) 62.4 % (50.0-75.0) 12/22/17 06:25 Lymph % (Auto) 25.9 % (20.0-40.0) 12/22/17 06:25 [place] % (Auto) 11.6 % (0.0-10.0) H 12/22/17 06:25 Eos % (Auto) 0.0 % (0.0-4.0) 12/22/17 06:25 Baso % (Auto) 0.1 % (0.0-2.0) 12/22/17 06:25 Neut # 4.5 K/uL (1.8-7.0) 12/22/17 06:25 Lymph # 1.8 K/uL (1.0-4.3) 12/22/17 06:25 [place] # 0.8 K/uL (0.0-0.8) 12/22/17 06:25 Eos # 0.0 K/uL (0.0-0.7) 12/22/17 06:25 Baso # 0.0 K/uL (0.0-0.2) 12/22/17 06:25 Neutrophils % (Manual) 52 % (50-75) 12/18/17 22:08 Lymphocytes % (Manual) 24 % (20-40) 12/18/17 22:08 Monocytes % (Manual) 24 % (0-10) H 12/18/17 22:08 Platelet Estimate Normal (NORMAL) 12/18/17 22:08 Hypochromasia (manual) Slight 12/18/17 22:08 Anisocytosis (manual) Slight 12/18/17 22:08 Puncture Site Rr 12/18/17 23:57 pCO2 43 mm/Hg (35-45) 12/18/17 23:57 pO2 59 mm/Hg (80-100) L 12/18/17 23:57 HCO3 26.6 mmol/L (21-28) 12/18/17 23:57 ABG pH 7.41 (7.35-7.45) 12/18/17 23:57 ABG Total CO2 28.6 mmol/L (22-28) H 12/18/17 23:57 ABG O2 Saturation 94.1 % (95-98) L 12/18/17 23:57 ABG Base Excess 2.3 mmol/L (-2.0-3.0) 12/18/17 23:57 ABG Hemoglobin 10.1 g/dL (11.7-17.4) L 12/18/17 23:57 ABG Carboxyhemoglobin 3.0 % (0.5-1.5) H 12/18/17 23:57 POC ABG HHb (Measured) 5.6 % (0.0-5.0) H 12/18/17 23:57 ABG Methemoglobin 1.4 % (0.0-3.0) 12/18/17 23:57 Ac Test Pos 12/18/17 23:57 Hgb O2 Saturation 90.0 % (95.0-98.0) L 12/18/17 23:57 Sodium 132 mmol/L (132-148) 12/22/17 06:25 Potassium 3.7 mmol/L (3.6-5.2) 12/22/17 06:25 Chloride 95 mmol/L (98-107) L 12/22/17 06:25 Carbon Dioxide 32 mmol/L (22-30) H 12/22/17 06:25 Anion Gap 9 (10-20) L 12/22/17 06:25 BUN 8 mg/dL (7-17) 12/22/17 06:25 Creatinine 0.4 mg/dL (0.7-1.2) L 12/22/17 06:25 Est GFR ( Amer) > 60 12/22/17 06:25 Est GFR (Non-Af Amer) > 60 12/22/17 06:25 Random Glucose 131 mg/dL (65-105) H 12/22/17 06:25 Calcium 8.7 mg/dl (8.6-10.4) 12/22/17 06:25 Phosphorus 3.4 mg/dL (2.5-4.5) 12/22/17 06:25 Magnesium 1.8 mg/dL (1.6-2.3) 12/22/17 06:25 Total Bilirubin 0.4 mg/dL (0.2-1.3) 12/22/17 06:25 AST 25 U/L (14-36) 12/22/17 06:25 ALT 16 U/L (9-52) 12/22/17 06:25 Alkaline Phosphatase 60 U/L (38-126) 12/22/17 06:25 Troponin I < 0.0120 ng/mL (0.00-0.120) 12/19/17 00:10 NT-Pro-B Natriuret Pep 69.3 pg/mL (0-900) 12/19/17 00:10 Total Protein 6.8 g/dL (6.3-8.3) 12/22/17 06:25 Albumin 3.5 g/dL (3.5-5.0) 12/22/17 06:25 Globulin 3.3 gm/dL (2.2-3.9) 12/22/17 06:25 Albumin/Globulin Ratio 1.1 (1.0-2.1) 12/22/17 06:25 Procalcitonin < 0.05 NG/ML (0.19-0.49) L 12/19/17 07:34 Influenza Typ A,B (EIA) Negative for flu a/b (NEGATIVE) 12/18/17 22:56 - Hospital Course Hospital Course: Discharge Summary PMD: None Consults: none PRINCIPAL DISCHARGE DIAGNOSES: Asthmatic bronchitis Influenza A(resolved) GERD Hypothyroidism Colon Cancer CC: shortness of breath HISTORY OF PRESENT ILLNESS: 72 Female with PMHx of Asthma, Hypothyroidism, Colon Cancer (newly diagnosed), Pulmonary TB (age 10) presents to the ED for SOB, body ache, fatigue. Patient was dischargd on 12/14/17 from [facility] - was treated for Influenza type A, Mycoplasma PNA. She was discharged with steriods, tamiflu, and antibiotics. Patient reports her symptoms persisted , despite her compliance with the prescribed medications. Patient continues with fever, chills, body ache, fatigue, weakness, chest pain 2/2 coughing, SOB, productive cough with yellow phlegm, sore throat, increased heartburn, and decreased appetite. Denied abdominal pain, n/v/d/c, or urinary symptoms. PMH: Asthma, Hypothyroidism, Colon Cancer (newly diagnosed), Pulmonary TB (age 10) PSHx: Appendectomy, Cholecystectomy Meds: Albuterol PRN, Mucinex 600 mg PO Q12H, Synthroid 50 mcg PO Daily, Promethazine 5 mL PO Q4H PRN Allergies: NKDA Social Hx: Denies use of tobacco, alcohol, drugs. Lives in [place] with her brother. 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 FMHx: Non-Contributory SUMMARY OF COURSE: Maribel Garza is a 72-year-old female who was admitted to [facility] on 12/18/2017-12/22/2017 for asthmatic bronchitis. Her past medical history is significant for asthma, hypothyroidism, colon cancer (newly diagnosed), and pulmonary TB (age 10). While at the hospital, her labs were monitored and she had imaging done, as reported below. She also worked with physical therapy to regain her strength. She is discharged with instructions [facility] of discharge. Information was provided. Imaging: ECG 12/18: Sinus tachycardia with occasional premature ventricular complexes and fusion complexes. Possible left atrial enlargement. Left axis deviation. Left ventricular hypertrophy with repolarization abnormality. ECG 12/19: Sinus tachycardia with occasional premature ventricular complexes and fusion complexes. Left axis deviation. Incomplete left bundle branch block. Left ventricular hypertrophy with repolarization abnormality. CT Chest 12/19: Bilateral lung disease without any significant improvement in the pleural parenchymal findings. An acute process is difficult to exclude if clinically suspected. Correlation with patients pulmonary symptoms, pulmonary history and clinical pulmonary diagnosis is recommended. CXR 12/18: Dense biapical pleural thickening with upper lobe scarring, fibrosis, bronchiectasis, cystic bullous changes; right greater than left. Diffuse increased interstitial lung markings throughout both lung madden. Additional scarring and or atelectasis at the lung bases. Some reticular opacities seen at the right upper and right lower lung zones. Correlation with chest CT may be helpful clinically. CXR 12/20: No stable biapical fibrotic changes with bronchiectasis and large right apical bulla. No acute pulmonary disease. CXR 12/22: PENDING Negative for legionella, strep pneumonia, meningitis, H. Influenza Advised patient to follow up with [facility] (Make an appointment in the basement of [facility]. Contact Number: [phone] There she can establish care with a PMD. Advised patient to avoid acidic foods ( tomato, coffee, orange juice) as they can exacerbate her acid reflux. Advised patient to return ot emergency department for any new or worsening symptoms. Discharged Medications: 1. Protonix 40mg PO Daily, 14 2. Azithromycin 500mg PO Daily, #7 3. Tamiflu 75mg PO BID, #5 Discharge Exam - Head Exam Head Exam: ATRAUMATIC, NORMAL INSPECTION, NORMOCEPHALIC - Eye Exam Eye Exam: EOMI, Normal appearance, PERRL. absent: Periorbital tenderness Pupil Exam: NORMAL ACCOMODATION, PERRL. absent: Irregular, Unequal - ENT Exam ENT Exam: Mucous Membranes Moist, Normal Oropharynx - Respiratory Exam Respiratory Exam: Clear to PA & Lateral, NORMAL BREATHING PATTERN, UNREMARKABLE. absent: Decreased Breath Sounds, Rales - Cardiovascular Exam Cardiovascular Exam: REGULAR RHYTHM, RRR, +S1, +S2. absent: Gallop, Rubs - GI/Abdominal Exam GI & Abdominal Exam: Normal Bowel Sounds, Unremarkable. absent: Hypoactive Bowel Sounds, Organomegaly - Extremities Exam Extremities exam: full ROM - Back Exam Back exam: NORMAL INSPECTION. absent: CVA tenderness (L), CVA tenderness (R), paraspinal tenderness - Neurological Exam Neurological exam: Alert, CN II-XII Intact, Normal Gait, Oriented x3 - Psychiatric Exam Psychiatric exam: Normal Affect, Normal Mood - Skin Skin Exam: Dry, Intact, Normal Color Discharge Plan - Discharge Medications Prescriptions: Azithromycin 500 mg PO DAILY #7 tablet Omeprazole 40 mg PO DAILY #14 capsule. Oseltamivir Phosphate [Tamiflu] 75 mg PO BID #10 capsule - Follow Up Plan Condition: GOOD Disposition: HOME/ ROUTINE Instructions: Omeprazole (By mouth), Azithromycin (By mouth), Oseltamivir (By mouth), Asthma (DC), Acute Bronchitis (GEN) Additional Instructions: Advised patient to follow up with [facility] (Make an appointment in the basement of [facility]. Contact Number: [phone] There she can establish care with a PMD. Advised patient to avoid acidic foods ( tomato, coffee, orange juice) as they can exacerbate her acid reflux. Advised patient to return ot emergency department for any new or worsening symptoms. Discharged Medications: 1. Protonix 40mg PO Daily, 14 2. Azithromycin 500mg PO Daily, #7 3. Tamiflu 75mg PO BID, #5 Referrals: [facility] [Outside] <Igor Parra - Last Filed: 12/23/17 07:39> Provider - Provider Date of Admission: 12/21/17 14:59 Attending physician: Surinder Rowan MD Hospital Course - Lab Results Lab Results: Most Recent Lab Values WBC 7.1 K/uL (4.8-10.8) 12/22/17 06:25 RBC 3.78 Mil/uL (3.80-5.20) L 12/22/17 06:25 Hgb 10.5 g/dL (11.0-16.0) L 12/22/17 06:25 Hct 31.4 % (34.0-47.0) L 12/22/17 06:25 MCV 82.9 fL (81.0-99.0) 12/22/17 06:25 MCH 27.8 pg (27.0-31.0) 12/22/17 06:25 MCHC 33.6 g/dL (33.0-37.0) 12/22/17 06:25 RDW 18.7 % (11.5-14.5) H 12/22/17 06:25 Plt Count 256 K/uL (130-400) 12/22/17 06:25 MPV 9.1 fL (7.2-11.7) 12/22/17 06:25 Neut % (Auto) 62.4 % (50.0-75.0) 12/22/17 06:25 Lymph % (Auto) 25.9 % (20.0-40.0) 12/22/17 06:25 [place] % (Auto) 11.6 % (0.0-10.0) H 12/22/17 06:25 Eos % (Auto) 0.0 % (0.0-4.0) 12/22/17 06:25 Baso % (Auto) 0.1 % (0.0-2.0) 12/22/17 06:25 Neut # 4.5 K/uL (1.8-7.0) 12/22/17 06:25 Lymph # 1.8 K/uL (1.0-4.3) 12/22/17 06:25 [place] # 0.8 K/uL (0.0-0.8) 12/22/17 06:25 Eos # 0.0 K/uL (0.0-0.7) 12/22/17 06:25 Baso # 0.0 K/uL (0.0-0.2) 12/22/17 06:25 Neutrophils % (Manual) 52 % (50-75) 12/18/17 22:08 Lymphocytes % (Manual) 24 % (20-40) 12/18/17 22:08 Monocytes % (Manual) 24 % (0-10) H 12/18/17 22:08 Platelet Estimate Normal (NORMAL) 12/18/17 22:08 Hypochromasia (manual) Slight 12/18/17 22:08 Anisocytosis (manual) Slight 12/18/17 22:08 Puncture Site Rr 12/18/17 23:57 pCO2 43 mm/Hg (35-45) 12/18/17 23:57 pO2 59 mm/Hg (80-100) L 12/18/17 23:57 HCO3 26.6 mmol/L (21-28) 12/18/17 23:57 ABG pH 7.41 (7.35-7.45) 12/18/17 23:57 ABG Total CO2 28.6 mmol/L (22-28) H 12/18/17 23:57 ABG O2 Saturation 94.1 % (95-98) L 12/18/17 23:57 ABG Base Excess 2.3 mmol/L (-2.0-3.0) 12/18/17 23:57 ABG Hemoglobin 10.1 g/dL (11.7-17.4) L 12/18/17 23:57 ABG Carboxyhemoglobin 3.0 % (0.5-1.5) H 12/18/17 23:57 POC ABG HHb (Measured) 5.6 % (0.0-5.0) H 12/18/17 23:57 ABG Methemoglobin 1.4 % (0.0-3.0) 12/18/17 23:57 Ac Test Pos 12/18/17 23:57 Hgb O2 Saturation 90.0 % (95.0-98.0) L 12/18/17 23:57 Sodium 132 mmol/L (132-148) 12/22/17 06:25 Potassium 3.7 mmol/L (3.6-5.2) 12/22/17 06:25 Chloride 95 mmol/L (98-107) L 12/22/17 06:25 Carbon Dioxide 32 mmol/L (22-30) H 12/22/17 06:25 Anion Gap 9 (10-20) L 12/22/17 06:25 BUN 8 mg/dL (7-17) 12/22/17 06:25 Creatinine 0.4 mg/dL (0.7-1.2) L 12/22/17 06:25 Est GFR ( Amer) > 60 12/22/17 06:25 Est GFR (Non-Af Amer) > 60 12/22/17 06:25 Random Glucose 131 mg/dL (65-105) H 12/22/17 06:25 Calcium 8.7 mg/dl (8.6-10.4) 12/22/17 06:25 Phosphorus 3.4 mg/dL (2.5-4.5) 12/22/17 06:25 Magnesium 1.8 mg/dL (1.6-2.3) 12/22/17 06:25 Total Bilirubin 0.4 mg/dL (0.2-1.3) 12/22/17 06:25 AST 25 U/L (14-36) 12/22/17 06:25 ALT 16 U/L (9-52) 12/22/17 06:25 Alkaline Phosphatase 60 U/L (38-126) 12/22/17 06:25 Troponin I < 0.0120 ng/mL (0.00-0.120) 12/19/17 00:10 NT-Pro-B Natriuret Pep 69.3 pg/mL (0-900) 12/19/17 00:10 Total Protein 6.8 g/dL (6.3-8.3) 12/22/17 06:25 Albumin 3.5 g/dL (3.5-5.0) 12/22/17 06:25 Globulin 3.3 gm/dL (2.2-3.9) 12/22/17 06:25 Albumin/Globulin Ratio 1.1 (1.0-2.1) 12/22/17 06:25 Procalcitonin < 0.05 NG/ML (0.19-0.49) L 12/19/17 07:34 Influenza Typ A,B (EIA) Negative for flu a/b (NEGATIVE) 12/18/17 22:56 Attending/Attestation - Attestation I have personally seen and examined this patient.: Yes I have fully participated in the care of the patient.: Yes I have reviewed all pertinent clinical information, including history, physical exam and plan: Yes Notes (Text): 12/23/17 07:39 Medical attending: Patient was seen and examined by the biomedical repair technician and myself. Agree with the above note by the biomedical repair technician. The patient has had negative blood cultures, a negative pro-calcitonin, also a repeat CT scan which showed the extensive upper lobe apical lung findings scarring. This was not a change from before. The patient had stable lab work. The WBC was stable, no left shift. A repeat CXRAY was stable as well Because she was recently admitted and then discharged for influenza and mycoplasma IgM and then came back - we explaiend to her she still needs to take Azithromycin and Tamiflu thank you Igor Parra
== END 2017-12-22 16:58 | disposition home or self-care (01) | DRG 191 ==
LOC: C.ER 20:32 → C.9E 12-19 01:42 → C.6T 12-19 05:31 → OBSVTOIN 12-21 14:59
PROVIDERS: ADMIT Internal Medicine; ATTEND Internal Medicine
DX: J47.9 Bronchiectasis, uncomplicated (principal); C18.9 Malignant neoplasm of colon, unspecified; J98.11 Atelectasis; J45.909 Unspecified asthma, uncomplicated; E03.9 Hypothyroidism, unspecified; I51.7 Cardiomegaly; Z68.23 Body mass index [BMI] 23.0-23.9, adult; Z87.01 Personal history of pneumonia (recurrent)

== ENCOUNTER 2018-05-18 16:13 | Emergency (ER) | payer MEDICARE ==
[2018-05-18 16:38] VITALS: RESP 16; O2SAT 98
[2018-05-18] MEDS ORDERED: Sodium Chloride 0.9% 1,000 ML IV ONE (16:38)
[2018-05-18 16:46] LABS: BASO % 0.3 % (0.0-2.0); EOS # 0.2 K/uL (0.0-0.7); EOS % 3.3 % (0.0-4.0); HEMOGLOBIN 11.9 g/dL (11.0-16.0); LYMPH # 2.2 K/uL (1.0-4.3); LYMPH % 30.6 % (20.0-40.0); MEAN CELL VOLUME 88.1 fL (81.0-99.0); MEAN CORPUSCULAR HEMOGLOBIN 30.3 pg (27.0-31.0); MEAN CORPUSCULAR HGB CONC 34.4 g/dL (33.0-37.0); MEAN PLATELET VOLUME 8.8 fL (7.2-11.7); MONO # 0.9 K/uL (0.0-0.8); MONO % 12.5 % (0.0-10.0); NEUT # 3.7 K/uL (1.8-7.0); NEUT % 53.3 % (50.0-75.0); NRBC % 0.1 % (0.0-2.0); RBC 3.92 Mil/uL (3.80-5.20)
[2018-05-18 16:58] LABS: ALB/GLOB RATIO 1.2 (1.0-2.1); ALBUMIN 3.8 g/dL (3.5-5.0); ALT/SGPT 15 U/L (9-52); AST/SGOT 21 U/L (14-36); BLOOD UREA NITROGEN 13 mg/dL (7-17); CALCIUM 8.2 mg/dl (8.6-10.4); GFR AFRICAN-AMERICAN > 60; GFR NON-AFRICAN AMERICAN > 60; LIPASE 62 U/L (23-300)
[2018-05-18 17:33] LABS: URINE BILIRUBIN NEGATIVE (NEGATIVE); URINE BLOOD 2+ (NEGATIVE); URINE CLARITY Clear (Clear); URINE COLOR Colorless (YELLOW); URINE GLUCOSE (UA) NORMAL (Normal); URINE LEUKOCYTE ESTERASE NEG Leu/uL (Negative); URINE PROTEIN NEGATIVE (NEGATIVE); URINE UROBILINOGEN NORMAL mg/dL (0.2-1.0)
--- NOTE | 2018-05-18 17:59 | CT ---
PROCEDURE: CT scan abdomen pelvis dated 05/18/2018. HISTORY: SUPRAPUBIC PAIN/PELVIC PAIN RADIATING TO BACK COMPARISON: None. TECHNIQUE: Contiguous helical/transaxial sections of the abdomen pelvis performed without oral or intravenous contrast material. Additional 2D sagittal and coronal reformats generated. Radiation dose: Total exam DLP = 412.58 mGy-cm. This CT exam was performed using one or more of the following dose reduction techniques: Automated exposure control, adjustment of the mA and/or kV according to patient size, and/or use of iterative reconstruction technique. . . FINDINGS: LOWER THORAX: Minor scarring changes seen both lung bases. LIVER: Liver exhibits normal size on. Liver demonstrates normal attenuation. There is a small approximately 12.5 mm x 9 mm elliptical shaped low-attenuation focus within the left lobe liver best seen on axial image number [id number] likely representing a simple cyst with Hounsfield units the negative to upper single digits. Couple of calcifications seen within the hepatic parenchyma consistent with prior exposure three granulomatous disease process to granulomatous disease process. GALLBLADDER AND BILE DUCTS: Cholecystectomy PANCREAS: The pancreas is unremarkable without masses collections or calcifications. SPLEEN: Few splenic tiny calcified splenic granulomas. ADRENALS: No adrenal lesions. KIDNEYS AND URETERS: Un kidneys demonstrate relatively symmetric size. No evidence of nephrolithiasis or hydronephrosis. VASCULATURE: Unremarkable. No aortic aneurysm. BOWEL: Evaluation of the bowel is limited due to are the lack of oral contrast material. Stomach is partially distended with food debris liquid and air. Visualized loops of small bowel exhibit normal contour and caliber. No evidence of acute mechanical small bowel obstruction. There is a moderately large amount of stool within the cecum and at ascending colon consistent with mild fecal retention/ constipation. Multiple colonic diverticula are present the bulk of which arise from the sigmoid and distal descending colon however no definitive radiographic evidence of acute diverticulitis. APPENDIX: Appendix is not seen with complete certainty however no obvious inflammatory changes right lower quadrant of the abdomen. PERITONEUM: Unremarkable. No free fluid. No free air. Small fat containing umbilical hernia. LYMPH NODES: Unremarkable. No enlarged lymph nodes. BLADDER: Urinary bladder incompletely distended which in part accounts for thick-walled appearance. Possibility of a cystitis not excluded. REPRODUCTIVE: Unremarkable as visualized. BONES: There are multiple on chronic appearing endplate deformities/Schmorl's nodes lower thoracic upper lumbar spine. No acute compression fractures no retropulsed fragments. OTHER FINDINGS: Few calcified of buttock injection granulomata bilaterally the left-side more numerous than the right IMPRESSION: Diverticulosis without radiographic evidence of acute diverticulitis. Findings also consistent with mild localized constipation right colon. Minor wall thickening of the urinary bladder likely due to incomplete distention however the possibility of a cystitis not excluded. Cholecystectomy. Small elliptical shaped low-attenuation within the hepatic parenchyma consistent with small cyst.
--- NOTE | 2018-05-18 18:17 | C.PDOC ---
History Of Present Illness 73 y/o female presents to the ED complaining of low back pain radiating anteriorly to the pelvis, associated with nausea, for the past several days. She denies any falls/injuries, fever/chills, vomiting, diarrhea, dysuria/ hematuria. Patient notes she had similar symptoms in the past when she had a bladder infection. Time Seen by Provider: 05/18/18 16:28 Chief Complaint (Nursing): Back Pain History Per: Patient History/Exam Limitations: no limitations Onset/Duration Of Symptoms: Days Current Symptoms Are (Timing): Still Present Quality Of Discomfort: "Pain" Past Medical History Reviewed: Historical Data, Nursing Documentation, Vital Signs Vital Signs: Last Vital Signs Temp 98.2 F 05/18/18 18:27 Pulse 73 05/18/18 18:27 Resp 16 05/18/18 18:27 BP 126/74 05/18/18 18:27 Pulse Ox 98 05/22/18 12:31 - Medical History PMH: Asthma, Bronchitis, Hyperthyroidism, Hypothyroidism, Pneumonia Surgical History: Appendectomy, Cholecystectomy Family History: States: No Known Family Hx - Social History Hx Alcohol Use: No Hx Substance Use: No - Immunization History Hx Tetanus Toxoid Vaccination: No Hx Influenza Vaccination: No Hx Pneumococcal Vaccination: No Review Of Systems Constitutional: Negative for: Fever, Chills Gastrointestinal: Positive for: Nausea. Negative for: Vomiting, Diarrhea Genitourinary: Positive for: Pelvic Pain. Negative for: Dysuria Musculoskeletal: Positive for: Back Pain Physical Exam - Physical Exam Appears: In Acute Distress (in mild to moderate pain) Skin: Normal Color, Warm, Dry Head: Normacephalic Eye(s): bilateral: Normal Inspection Oral Mucosa: Moist Neck: Supple Cardiovascular: Rhythm Regular Respiratory: Normal Breath Sounds, No Rales, No Rhonchi, No Wheezing Gastrointestinal/Abdominal: Bowel Sounds, Soft, Tenderness ( suprapubic and RLQ mild TTP), No Guarding, No Rebound Back: Normal Inspection, No CVA Tenderness Extremity: Bilateral: Atraumatic, Normal Color And Temperature, Normal ROM Neurological/Psych: Oriented x3 ED Course And Treatment - Laboratory Results Result Diagrams: 05/18/18 16:40 05/18/18 16:40 O2 Sat by Pulse Oximetry: 98 (RA) Pulse Ox Interpretation: Normal - CT Scan/US CT A/P Other Rad Studies (CT/US): Read By Radiologist, Radiology Report Reviewed CT/US Interpretation: Accession No. : [id number]. Patient Name / ID : [id number] Bolaños / [id number]. Exam Date : 05/18/2018 17:10:10 ( Approved ). Study Comment : Sex / Age : F / [id number]. Creator : Maycol Zelaya. 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 Approver2 : Report Date : 05/18/2018 17:23:39. My Comment : . PROCEDURE: CT scan abdomen pelvis dated 05/18/2018. HISTORY: SUPRAPUBIC PAIN/PELVIC PAIN RADIATING TO BACK. COMPARISON: None. TECHNIQUE: Contiguous helical/transaxial sections of the abdomen pelvis performed without oral or intravenous contrast material. Additional 2D sagittal and coronal reformats generated. Radiation dose: Total exam DLP = 412.58 mGy-cm. This CT exam was performed using one or more of the following dose reduction techniques: Automated exposure control, adjustment of the mA and/or kV according to patient size, and/or use of iterative reconstruction technique. . . FINDINGS: LOWER THORAX: Minor scarring changes seen both lung bases. LIVER: Liver exhibits normal size on. Liver demonstrates normal attenuation. There is a small approximately 12.5 mm x 9 mm elliptical shaped low-attenuation focus within the left lobe liver best seen on axial image number [id number] likely representing a simple cyst with Hounsfield units the negative to upper single digits. Couple of calcifications seen within the hepatic parenchyma consistent with prior exposure three granulomatous disease process to granulomatous disease process. GALLBLADDER AND BILE DUCTS: Cholecystectomy. PANCREAS: The pancreas is unremarkable without masses collections or calcifications. SPLEEN: Few splenic tiny calcified splenic granulomas. ADRENALS: No adrenal lesions. KIDNEYS AND URETERS: Un kidneys demonstrate relatively symmetric size. No evidence of nephrolithiasis or hydronephrosis. VASCULATURE: Unremarkable. No aortic aneurysm. BOWEL: Evaluation of the bowel is limited due to are the lack of oral contrast material. Stomach is partially distended with food debris liquid and air. Visualized loops of small bowel exhibit normal contour and caliber. No evidence of acute mechanical small bowel obstruction. There is a moderately large amount of stool within the cecum and at ascending colon consistent with mild fecal retention/ constipation. Multiple colonic diverticula are present the bulk of which arise from the sigmoid and distal descending colon however no definitive radiographic evidence of acute diverticulitis. APPENDIX: Appendix is not seen with complete certainty however no obvious inflammatory changes right lower quadrant of the abdomen. PERITONEUM: Unremarkable. No free fluid. No free air. Small fat containing umbilical hernia. LYMPH NODES: Unremarkable. No enlarged lymph nodes. BLADDER: Urinary bladder incompletely distended which in part accounts for thick-walled appearance. Possibility of a cystitis not excluded. REPRODUCTIVE: Unremarkable as visualized. BONES: There are multiple on chronic appearing endplate deformities/Schmorl's nodes lower thoracic upper lumbar spine. No acute compression fractures no retropulsed fragments. OTHER FINDINGS: Few calcified of buttock injection granulomata bilaterally the left-side more numerous than the right. IMPRESSION : Diverticulosis without radiographic evidence of acute diverticulitis. Findings also consistent with mild localized constipation right colon. Minor wall thickening of the urinary bladder likely due to incomplete distention however the possibility of a cystitis not excluded. Cholecystectomy. Small elliptical shaped low-attenuation within the hepatic parenchyma consistent with small cyst. Progress Note: Blood work, UA, CT scan abd/pelvis ordered and reviewed. Patient given IV NS bolus, IV Toradol. Reevaluation Time: 18:20 Reassessment Condition: Improved (On reassessment, patient is resting comfortably and states she feels better. On exam, abdomen is soft and nontender. CT scan shows possible cystitis and right sided constipation. Explained findings and copies of all labs/studies given to patient. Rxs for Ciprofloxacin, Colace, magnesium citrate and naprosyn given. Patient instructed to follow up with PMD in 1-2 days, and she understands she should retur to ED if symptoms worsen.) Disposition Counseled Patient/Family Regarding: Studies Performed, Diagnosis, Need For Followup, Rx Given - Disposition Referrals: Barb Carver MD [Staff Provider] - Disposition: HOME/ ROUTINE Disposition Time: 18:20 Condition: STABLE Additional Instructions: FOLLOW UP WITH YOUR DOCTOR IN 1-2 DAYS USE MEDICATIONS DIRECTED DRINK PLENTY OF WATER AND INCREASE YOUR FIBER RETURN TO EMERGENCY ROOM IF SYMPTOMS WORSEN SEGUIMIENTO CON REINA MDICO EN 1-2 EPPS USE MEDICAMENTOS SEGN LO INDICADO TAMIR ABUNDANTE AGUA Y AUMENTA TU FIBRA REGRESE AL DANIEL DE EMERGENCIA SI LOS SNTOMAS EMPEORAN Prescriptions: Ciprofloxacin [Cipro] 1 tab PO BID #14 tab Docusate [Colace] 100 mg PO DAILY #30 cap Magnesium Citrate [Citrate of Mag] 300 ml PO ONCE PRN #1 bottle PRN Reason: Constipation Naproxen 375 mg PO BID PRN #20 tablet PRN Reason: pain Instructions: Constipation, Adult (DC), Acute Cystitis (DC) Forms: Row44 (Polish) Print Language: NIGERIEN - POA Present On Arrival: None - Clinical Impression Clinical Impression: Low back pain, Cystitis, Constipation, Arthritis, lumbar spine - Scribe Statement The provider has reviewed the documentation as recorded by the Scribe (Carla Bojorquez) Provider Attestation: All medical record entries made by the Scribe were at my direction and personally dictated by me. I have reviewed the chart and agree that the record accurately reflects my personal performance of the history, physical exam, medical decision making, and the department course for this patient. I have also personally directed, reviewed, and agree with the discharge instructions and disposition.
[2018-05-18 18:28] VITALS: BP 126/74; PULSE 73; TEMP 98.2
== END 2018-05-18 18:36 | disposition home or self-care (01) ==
LOC: C.ER 16:13
DX: N30.90 Cystitis, unspecified without hematuria (principal); K59.00 Constipation, unspecified; M46.96 Unspecified inflammatory spondylopathy, lumbar region; M54.5 Low back pain
CPT/HCPCS: 74176; 80053; 81001; 83690; 85025; 87086; 96361; 96374; 99283; J1885; J7030

== ENCOUNTER 2018-10-10 09:54 | Inpatient (IN) | payer MEDICARE ==
[2018-10-10 10:55] LABS: BASO # 0.1 K/uL (0.0-0.2); BASO % 0.5 % (0.0-2.0); EOS # 0.1 K/uL (0.0-0.7); EOS % 0.7 % (0.0-4.0); HEMOGLOBIN 12.1 g/dL (11.0-16.0); LYMPH # 1.8 K/uL (1.0-4.3); LYMPH % 12.1 % (20.0-40.0); MEAN CELL VOLUME 89.4 fL (81.0-99.0); MEAN CORPUSCULAR HEMOGLOBIN 29.8 pg (27.0-31.0); MEAN CORPUSCULAR HGB CONC 33.3 g/dL (33.0-37.0); MEAN PLATELET VOLUME 8.1 fL (7.2-11.7); MONO # 1.6 K/uL (0.0-0.8); MONO % 10.4 % (0.0-10.0); NEUT # 11.6 K/uL (1.8-7.0); NEUT % 76.3 % (50.0-75.0); RBC 4.08 Mil/uL (3.80-5.20); RED CELL DISTRIBUTION WIDTH 15.6 % (11.5-14.5); WHITE BLOOD COUNT 15.2 K/uL (4.8-10.8)
[2018-10-10 11:06] LABS: INR 1.3; PROTHROMBIN TIME 14.6 SECONDS (9.7-12.2)
--- NOTE | 2018-10-10 11:20 | C.PDOC ---
History Of Present Illness 73 year old female with PMHx of gastritis, thyroid disease, arthritis and stroke with residual left sided weakness presents to the ED for an evaluation of productive cough, subjective fever, and myalgias for 2 weeks. Patient sent by Dr. Carver to rule out TB. Reports TB history as a child. Denies any shortness of breath, abdominal pain, chest pain, headache, nausea, vomiting, diarrhea, weakness, numbness. Time Seen by Provider: 10/10/18 10:16 Chief Complaint (Nursing): Cough, Cold, Congestion History Per: Patient History/Exam Limitations: no limitations Onset/Duration Of Symptoms: Days Current Symptoms Are (Timing): Still Present Location Of Pain: Diffuse Myalgias Sick Contacts (Context): None Associated Symptoms: Fever, Cough. denies: Nausea, Vomiting, Diarrhea Ear Symptoms: Bilateral: None Past Medical History Reviewed: Historical Data, Nursing Documentation, Vital Signs Vital Signs: Last Vital Signs Temp 97.8 F 10/10/18 10:00 Pulse 93 H 10/10/18 10:00 Resp 20 10/10/18 10:00 BP 122/68 10/10/18 10:00 Pulse Ox 95 10/10/18 10:00 - Medical History PMH: Asthma, Bronchitis, Hyperthyroidism, Hypothyroidism, Pneumonia Surgical History: Appendectomy, Cholecystectomy Family History: States: No Known Family Hx - Social History Hx Alcohol Use: No Hx Substance Use: No - Immunization History Hx Tetanus Toxoid Vaccination: No Hx Influenza Vaccination: No Hx Pneumococcal Vaccination: No Review Of Systems Except As Marked, All Systems Reviewed And Found Negative. Constitutional: Positive for: Fever, Other (myalgias ) Cardiovascular: Negative for: Chest Pain Respiratory: Positive for: Cough. Negative for: Shortness of Breath Gastrointestinal: Negative for: Nausea, Vomiting, Abdominal Pain, Diarrhea Neurological: Negative for: Headache Physical Exam - Physical Exam Appears: Non-toxic Skin: Warm, Dry, No Rash Head: Atraumatic, Normacephalic Eye(s): bilateral: Normal Inspection, PERRL, EOMI Ear(s): Bilateral: Normal Nose: Normal Oral Mucosa: Moist, Other (pink) Throat: Normal, No Erythema, No Exudate Neck: Normal ROM, Supple Chest: Symmetrical Cardiovascular: Rhythm Regular Respiratory: No Rales, No Rhonchi, No Wheezing, Other (Normal inspiratory effort, Lungs clear to auscultation) Gastrointestinal/Abdominal: Soft, No Tenderness Extremity: Bilateral: Atraumatic, Normal Color And Temperature, Normal ROM Pulses: Left Dorsalis Pedis: Normal, Right Dorsalis Pedis: Normal Neurological/Psych: Oriented x3, Normal Speech, Cerebellar Signs, Normal Motor, Normal Sensation, Normal Reflexes, Other (chronic mild left facial droop ) Gait: Steady ED Course And Treatment - Laboratory Results Result Diagrams: 10/15/18 11:09 10/15/18 11:09 ECG: Interpreted By Me, Viewed By Me ECG Rhythm: Sinus Rhythm ECG Interpretation: No Changes From Prior Interpretation Of ECG: Normal intervals. LVH with repolarization. Left axis deviation. Normal OK and QT intervals. No ischemic changes from 12/19/17. Rate From EC O2 Sat by Pulse Oximetry: 95 (RA) Pulse Ox Interpretation: Normal Medical Decision Making Medical Decision Making: Plan -Patiet placed in isolation - Bloodwork - CXR - UA - Influenza A B -AFB Results: CXR images similar to the one from 12/22/17. Given symptoms, elevated wbc will tx for pna and admit for further evaluation and management. Results of w/u d/w pt who is agreeable w/POC. [address] Carver. Agrees to admit patient under his service. Disposition Discussed With : Barb Carver Doctor Will See Patient In The: Hospital Counseled Patient/Family Regarding: Studies Performed, Diagnosis - Disposition Disposition: HOSPITALIZED Disposition Time: 12:50 Condition: STABLE - Clinical Impression Clinical Impression: Pneumonia - Scribe Statement The provider has reviewed the documentation as recorded by the Jim Thompson All medical record entries made by the Shiraibmagen were at my direction and personally dictated by me. I have reviewed the chart and agree that the record accurately reflects my personal performance of the history, physical exam, medical decision making, and the department course for this patient. I have also personally directed, reviewed, and agree with the discharge instructions and disposition.
[2018-10-10 11:33] LABS: BLOOD UREA NITROGEN 6 mg/dL (7-17); GFR NON-AFRICAN AMERICAN > 60
[2018-10-10 11:34] LABS: CALCIUM 9.3 mg/dl (8.6-10.4)
[2018-10-10 11:35] LABS: ALT/SGPT 21 U/L (9-52); AST/SGOT 22 U/L (14-36)
[2018-10-10 11:49] LABS: URINE BACTERIA RARE (<OCC); URINE BILIRUBIN NEGATIVE (NEGATIVE); URINE CLARITY Clear (Clear); URINE COLOR Straw (YELLOW); URINE GLUCOSE (UA) NORMAL (Normal); URINE LEUKOCYTE ESTERASE NEG Leu/uL (Negative); URINE PROTEIN NEGATIVE (NEGATIVE); URINE UROBILINOGEN NORMAL mg/dL (0.2-1.0)
[2018-10-10 11:53] LABS: URINE BLOOD 3+ (NEGATIVE)
[2018-10-10] MEDS ORDERED: Azithromycin 500mg/250ML NS 500 MG/250 ML BAG IV STA (13:02)
[2018-10-10] MEDS ORDERED: cefTRIAXone IV 1 gm in Dextros 50 ML IV STA (13:02)
[2018-10-10] MEDS ORDERED: cefTRIAXone 1 gm 1 GM/100 ML BAG IVPB ONE (13:08)
[2018-10-10] MEDS ORDERED: Albuterol-Ipratrop 3 mg / 0.5 (3 ml) UD INH STA (14:05)
[2018-10-10] MEDS ORDERED: Albuterol-Ipratrop 3 mg / 0.5 (3 ml) UD ONE (14:13)
[2018-10-10] MEDS ORDERED: Azithromycin 500mg/250ML NS 500 MG/250 ML BAG IVPB ONE (14:22)
--- NOTE | 2018-10-10 14:41 | RAD ---
Date of service: 10/10/2018 HISTORY: cough COMPARISON: 09/20/2018 single-view chest. 12/19/2017 CT thorax FINDINGS: LUNGS: Biapical scarring, hilar retraction. Findings likely the sequela prior granulomatous exposure. Air-fluid level in a large bulla in the right apex unchanged compared to prior study. PLEURA: No significant pleural effusion identified, no pneumothorax apparent. CARDIOVASCULAR: No atherosclerotic calcification present Normal. OSSEOUS STRUCTURES: No significant abnormalities. VISUALIZED UPPER ABDOMEN: Normal. OTHER FINDINGS: None. IMPRESSION: Stable biapical scarring, hilar retraction compatible with prior exposure to granulomatous disease. Stable underlying interstitial lung disease. No acute findings.
[2018-10-10] MEDS ORDERED: guaiFENesin 100 mg/5 ml Syrup UD ONE (14:42)
[2018-10-10] MEDS ORDERED: guaiFENesin 100 mg/5 ml Syrup UD PO STA (14:44)
[2018-10-10] MEDS: Sodium Chloride 0.9% 1,000 ML IV SCH (15:07)
--- NOTE | 2018-10-10 15:13 | CP.PCM.HP ---
History of Present Illness - History of Present Illness History of Present Illness: Chief complaint: Cough History of present illness: 73-year-old female with history of CVA, hypertension, anemia, history of colon cancer, and also tuberculosis in the past came to the office with complaining of increasing cough. 3 weeks ago patient was in [place], there patient had an episode of worsening respirated infection, and given antibiotic including Augmentin, and also prednisone. Patient also started having at that time increasing diarrhea. After taking multiple antibiotic patient was not showing any improvement, and he came to my office 2 weeks ago, at that time had a CAT scan x-rays the Patient was given inhalers at the time. But she is persistently having increasing diarrheal episodes. Nausea, associated vomiting. Right flank pain noted. She was also having worsening cough, cough at nighttime is more, associate with thick yellow mucus the She does not have any bleeding. She has some headache. She is having very poor appetite, weight loss present. No night sweats noted Past medical history: History of CVA, hypertension, anemia, hypothyroidism, history: Cancer, history of tuberculosis Surgical history: Cholecystectomy, appendectomy. Allergies: No known drug allergy Personal history: Mother natural cause. Social history: Nonalcoholic. Drinks coffee. No smoking history. Current medications: Prednisone 20 mg Levothyroxine 75 g daily Recently took amoxicillin. She also takes on and off inhalers. Cough medication. Singular. Ipratropium/albuterol. She was also taking nabumetone. Review of systems: Patient now having increasing headache, cough, sore throat, difficult time in swallowing, also having some difficult time in breathing. Cough with the mucus production, and also chills and feverish. Abdominal discomfort. Poor intake noted. Diarrhea present. nausea noted, associate with the episodes of vomiting and diarrhea. On examination: Vital signs stable. Chest bilateral diffuse rhonchi and wheezing noted, regular heart sound, but tenderness negative. Pedal edema negative. Chest x-ray bilateral apical infiltrative changes noted. Elevated WBC noted Assessment and recommendation: 72-year-old female with history of CVA, hypertension, anemia, congestive colon cancer, tuberculosis in the past hypothyroidism. Patient admitted with worsening respirated symptoms, and associate diarrhea and flank pain. Underlying pneumonia cannot be ruled out. Patient has a fibrosis, bronchiectatic pattern in the bilateral upper lung region and associate with cavitation and fluid level from the old CAT scan. But start the patient on antibiotic inhalers. C. difficile colitis cannot be ruled out Patient also has possible urinary tract infection on antibiotic. DVT GI prophylaxis will follow the patient Present on Admission - Present on Admission Any Indicators Present on Admission: No History of DVT/PE: No History of Uncontrolled Diabetes: No Urinary Catheter: No Decubitus Ulcer Present: No Past Patient History - Infectious Disease Hx of Infectious Diseases: None - Past Medical History & Family History Past Medical History?: Yes - Past Social History Smoking Status: Never Smoked - PULMONARY Hx Asthma: Yes Hx Bronchitis: Yes Hx Pneumonia: Yes - ENDOCRINE/METABOLIC Hx Hyperthyroidism: Yes Hx Hypothyroidism: Yes - MUSCULOSKELETAL/RHEUMATOLOGICAL Hx Falls: No - GASTROINTESTINAL Other/Comment: COLON CANCER - PSYCHIATRIC Hx Substance Use: No - SURGICAL HISTORY Hx Appendectomy: Yes Hx Cholecystectomy: Yes - ANESTHESIA Hx Anesthesia: Yes Hx Anesthesia Reactions: No Meds Allergies/Adverse Reactions: Allergies Allergy/AdvReac Type Severity Reaction Status Date / Time No Known Allergies Allergy Verified 12/18/17 21:16 Results - Vital Signs Recent Vital Signs: Last Vital Signs Temp 98 F 10/10/18 14:26 Pulse 98 H 10/10/18 14:26 Resp 18 10/10/18 14:26 BP 112/54 L 10/10/18 14:26 Pulse Ox 100 10/10/18 14:26 - Labs Result Diagrams: 10/10/18 10:50 10/10/18 10:50 Labs: Laboratory Results - last 24 hr 10/10/18 10/10/18 10/10/18 10:50 10:50 10:50 WBC 15.2 H D RBC 4.08 Hgb 12.1 Hct 36.5 MCV 89.4 MCH 29.8 MCHC 33.3 RDW 15.6 H Plt Count 347 D MPV 8.1 Neut % (Auto) 76.3 H Lymph % (Auto) 12.1 L [place] % (Auto) 10.4 H Eos % (Auto) 0.7 Baso % (Auto) 0.5 Neut # (Auto) 11.6 H Lymph # (Auto) 1.8 [place] # (Auto) 1.6 H Eos # (Auto) 0.1 Baso # (Auto) 0.1 PT 14.6 H INR 1.3 APTT 38 H Sodium 134 Potassium 4.0 Chloride 92 L Carbon Dioxide 34 H Anion Gap 12 BUN 6 L Creatinine 0.4 L Est GFR ( Amer) > 60 Est GFR (Non-Af Amer) > 60 Random Glucose 106 H Calcium 9.3 Phosphorus 4.1 Magnesium 2.2 Total Bilirubin 0.7 AST 22 ALT 21 Alkaline Phosphatase 140 H D Total Protein 8.2 Albumin 4.0 Globulin 4.1 H Albumin/Globulin Ratio 1.0 Urine Color Urine Clarity Urine pH Ur Specific [place] Urine Protein Urine Glucose (UA) Urine Ketones Urine Blood Urine Nitrate Urine Bilirubin Urine Urobilinogen Ur Leukocyte Esterase Urine WBC (Auto) Urine RBC (Auto) Urine Bacteria 10/10/18 11:13 WBC RBC Hgb Hct MCV MCH MCHC RDW Plt Count MPV Neut % (Auto) Lymph % (Auto) [place] % (Auto) Eos % (Auto) Baso % (Auto) Neut # (Auto) Lymph # (Auto) [place] # (Auto) Eos # (Auto) Baso # (Auto) PT INR APTT Sodium Potassium Chloride Carbon Dioxide Anion Gap BUN Creatinine Est GFR ( Amer) Est GFR (Non-Af Amer) Random Glucose Calcium Phosphorus Magnesium Total Bilirubin AST ALT Alkaline Phosphatase Total Protein Albumin Globulin Albumin/Globulin Ratio Urine Color Straw Urine Clarity Clear Urine pH 7.0 Ur Specific [place] 1.003 Urine Protein Negative Urine Glucose (UA) Normal Urine Ketones Trace Urine Blood 3+ H Urine Nitrate Negative Urine Bilirubin Negative Urine Urobilinogen Normal Ur Leukocyte Esterase Neg Urine WBC (Auto) < 1 Urine RBC (Auto) 6 H Urine Bacteria Rare
[2018-10-10] MEDS ORDERED: Promethazine DM 6.25 mg-15 mg/5 ml Syrup ONE (17:24)
[2018-10-10] MEDS: Promethazine 6.25 MG/5 ML CUP PO PRN (17:33)
[2018-10-10] MEDS: Saccharomyces Boulardi 250 mg Cap PO SCH (18:29)
[2018-10-10] MEDS: Albuterol-Ipratrop 3 mg / 0.5 (3 ml) UD INH SCH (20:01)
[2018-10-11] MEDS: Albuterol-Ipratrop 3 mg / 0.5 (3 ml) UD INH SCH ×4 (01:15→20:15)
[2018-10-11] MEDS: Levothyroxine 50 MCG TAB PO SCH (06:36)
[2018-10-11 07:49] LABS: BASO # 0.1 K/uL (0.0-0.2); BASO % 0.6 % (0.0-2.0); EOS # 0.3 K/uL (0.0-0.7); EOS % 2.4 % (0.0-4.0); HEMOGLOBIN 10.5 g/dL (11.0-16.0); LYMPH # 1.7 K/uL (1.0-4.3); LYMPH % 14.5 % (20.0-40.0); MEAN CELL VOLUME 89.5 fL (81.0-99.0); MEAN CORPUSCULAR HEMOGLOBIN 29.9 pg (27.0-31.0); MEAN CORPUSCULAR HGB CONC 33.4 g/dL (33.0-37.0); MEAN PLATELET VOLUME 8.6 fL (7.2-11.7); MONO # 1.5 K/uL (0.0-0.8); MONO % 12.4 % (0.0-10.0); NEUT # 8.3 K/uL (1.8-7.0); NEUT % 70.1 % (50.0-75.0); RBC 3.53 Mil/uL (3.80-5.20); RED CELL DISTRIBUTION WIDTH 15.5 % (11.5-14.5); WHITE BLOOD COUNT 11.8 K/uL (4.8-10.8)
[2018-10-11 08:06] LABS: ALBUMIN 3.3 g/dL (3.5-5.0); ALT/SGPT 21 U/L (9-52); AST/SGOT 18 U/L (14-36); BLOOD UREA NITROGEN 5 mg/dL (7-17); CALCIUM 8.4 mg/dl (8.6-10.4); GFR NON-AFRICAN AMERICAN > 60
[2018-10-11] MEDS ORDERED: Iohexol 240 (50 ml) PO ONE (09:00)
[2018-10-11] MEDS: cefTRIAXone IV 1 gm in Dextros 50 ML IVPB SCH (09:52)
[2018-10-11] MEDS: Nystatin 100,000 Units/ml Oral Susp 5 ml UD PO SCH ×4 (09:53→21:22)
[2018-10-11] MEDS: Saccharomyces Boulardi 250 mg Cap PO SCH ×3 (09:53→17:10)
[2018-10-11] MEDS: Influenza Vaccine 60 MCG/0.5 ML SYR (3 yr & up) IM ONE ×2 (10:53→14:21)
[2018-10-11] MEDS: Azithromycin 500 MG in Sodium Chloride 0.9% 250 ML IVPB SCH (10:57)
[2018-10-11] MEDS: Sodium Chloride 0.9% 1,000 ML IV SCH (12:00)
--- NOTE | 2018-10-11 12:50 | CARD ---
APPROVED REPORT Date of service: 10/10/2018 EKG Measurement Heart [id number] <Conclusion> Normal sinus rhythm Left axis deviation Left ventricular hypertrophy with QRS widening and repolarization abnormality Abnormal ECG
--- NOTE | 2018-10-11 17:03 | CT ---
PROCEDURE: CT Abdomen and Pelvis without IV contrast. HISTORY: abd pain COMPARISON: CT abdomen and pelvis without/with IV contrast performed 08/10/18 TECHNIQUE: Contiguous axial images of the abdomen and pelvis. Oral contrast was administered. No IV contrast given. Coronal and Sagittal reformats generated and reviewed. Radiation dose: Total exam DLP = 422.11 mGy-cm. This CT exam was performed using one or more of the following dose reduction techniques: Automated exposure control, adjustment of the mA and/or kV according to patient size, and/or use of iterative reconstruction technique. FINDINGS: There is limited evaluation of the solid organs without the administration of IV contrast. LOWER THORAX: Limited visualization of the lung bases demonstrates reticular nodular opacities bilaterally. No visible pleural effusion or pneumothorax. Small hiatal hernia/distal esophageal wall thickening. LIVER: 12 mm hepatic hypodense lesion (series 3, image 31), possibly cyst. Punctate hepatic calcifications, likely granulomas. GALLBLADDER AND BILE DUCTS: Cholecystectomy. PANCREAS: Unremarkable unenhanced appearance. SPLEEN: Splenic calcifications, likely granulomas. 8 mm probable splenule. ADRENALS: Unremarkable unenhanced appearance. KIDNEYS AND URETERS: No hydronephrosis or obstructing renal calculus. BLADDER: Mildly thick-walled under distention of the urinary bladder. REPRODUCTIVE: Uterus is present. Asymmetry at the level of the left vagina measuring approximately 2.1 x 3.1 cm which appears high density, indeterminate. APPENDIX: No secondary signs of acute appendicitis. BOWEL: The stomach is nondistended. The bowel loops appear within normal limits of caliber without evidence of intestinal obstruction. Diverticulosis without CT evidence of acute diverticulitis, most severely involving the sigmoid colon. PERITONEUM: No significant free fluid. No definite free air. LYMPH NODES: No bulky lymphadenopathy identified. VASCULATURE: No aortic aneurysm. BONES: Osseous demineralization. Degenerative changes. OTHER FINDINGS: Small fat containing ventral hernia measures approximately 12 mm in transverse dimension. Subcutaneous emphysema, left abdominal wall; correlate for recent injections. IMPRESSION: Lung bases reveal reticular nodular opacities bilaterally. 12 mm hypodense hepatic lesion, possibly cyst. Cholecystectomy. Evidence of prior granulomatous infection. Diverticulosis without CT evidence of acute diverticulitis, most severely involving the sigmoid colon. High-density asymmetry involving the left vaginal wall, indeterminate. Mildly thick-walled under distended urinary bladder. Recommend correlation urinalysis. Additional findings as above.
[2018-10-12] MEDS: Albuterol-Ipratrop 3 mg / 0.5 (3 ml) UD INH SCH ×4 (01:18→19:46)
[2018-10-12] MEDS: Levothyroxine 50 MCG TAB PO SCH (06:01)
[2018-10-12] MEDS: Sodium Chloride 0.9% 1,000 ML IV SCH (07:30)
[2018-10-12] MEDS: cefTRIAXone IV 1 gm in Dextros 50 ML IVPB SCH (08:05)
[2018-10-12] MEDS: Azithromycin 500 MG in Sodium Chloride 0.9% 250 ML IVPB SCH (10:22)
[2018-10-12] MEDS: Nystatin 100,000 Units/ml Oral Susp 5 ml UD PO SCH ×4 (10:22→21:38)
[2018-10-12] MEDS: Saccharomyces Boulardi 250 mg Cap PO SCH ×3 (10:23→17:52)
[2018-10-12] MEDS: Promethazine 6.25 MG/5 ML CUP PO PRN (17:52)
[2018-10-13] MEDS: Albuterol-Ipratrop 3 mg / 0.5 (3 ml) UD INH SCH ×4 (01:06→20:11)
[2018-10-13] MEDS: Sodium Chloride 0.9% 1,000 ML IV SCH (03:35)
[2018-10-13] MEDS: Levothyroxine 50 MCG TAB PO SCH (05:31)
[2018-10-13 08:29] LABS: BASO % 0.2 % (0.0-2.0); EOS # 0.3 K/uL (0.0-0.7); EOS % 3.7 % (0.0-4.0); HEMOGLOBIN 10.1 g/dL (11.0-16.0); LYMPH # 1.9 K/uL (1.0-4.3); LYMPH % 26.5 % (20.0-40.0); MEAN CELL VOLUME 88.6 fL (81.0-99.0); MEAN CORPUSCULAR HEMOGLOBIN 29.4 pg (27.0-31.0); MEAN CORPUSCULAR HGB CONC 33.2 g/dL (33.0-37.0); MEAN PLATELET VOLUME 8.4 fL (7.2-11.7); MONO # 1.1 K/uL (0.0-0.8); MONO % 15.1 % (0.0-10.0); NEUT % 54.5 % (50.0-75.0); RBC 3.42 Mil/uL (3.80-5.20); RED CELL DISTRIBUTION WIDTH 15.8 % (11.5-14.5); WHITE BLOOD COUNT 7.3 K/uL (4.8-10.8)
[2018-10-13 09:22] LABS: ALB/GLOB RATIO 0.8 (1.0-2.1); ALBUMIN 2.9 g/dL (3.5-5.0); ALT/SGPT 18 U/L (9-52); AST/SGOT 19 U/L (14-36); BLOOD UREA NITROGEN 7 mg/dL (7-17); CALCIUM 8.4 mg/dl (8.6-10.4); GFR NON-AFRICAN AMERICAN > 60
[2018-10-13] MEDS: Nystatin 100,000 Units/ml Oral Susp 5 ml UD PO SCH ×4 (09:46→21:35)
[2018-10-13] MEDS: Saccharomyces Boulardi 250 mg Cap PO SCH ×3 (09:46→17:37)
[2018-10-13] MEDS: cefTRIAXone IV 1 gm in Dextros 50 ML IVPB SCH (09:46)
[2018-10-13] MEDS: Pantoprazole 40 mg EC Tab PO SCH (09:46)
[2018-10-13] MEDS: Azithromycin 500 MG in Sodium Chloride 0.9% 250 ML IVPB SCH (09:55)
[2018-10-13] MEDS ORDERED: Pneumococcal 23-Valent Vaccine IM ONE (10:00)
[2018-10-13] MEDS: Promethazine 6.25 MG/5 ML CUP PO PRN (17:37)
[2018-10-14] MEDS: Albuterol-Ipratrop 3 mg / 0.5 (3 ml) UD INH SCH ×4 (01:42→20:52)
[2018-10-14] MEDS: Levothyroxine 50 MCG TAB PO SCH (05:55)
[2018-10-14] MEDS: Promethazine 6.25 MG/5 ML CUP PO PRN ×3 (05:59→21:04)
[2018-10-14] MEDS: cefTRIAXone IV 1 gm in Dextros 50 ML IVPB SCH (08:08)
[2018-10-14] MEDS: Nystatin 100,000 Units/ml Oral Susp 5 ml UD PO SCH ×4 (09:19→21:04)
[2018-10-14] MEDS: Pantoprazole 40 mg EC Tab PO SCH (09:20)
[2018-10-14] MEDS: Azithromycin 500 MG in Sodium Chloride 0.9% 250 ML IVPB SCH (09:20)
[2018-10-14] MEDS: Saccharomyces Boulardi 250 mg Cap PO SCH ×3 (09:20→17:30)
[2018-10-15] MEDS: Albuterol-Ipratrop 3 mg / 0.5 (3 ml) UD INH SCH ×4 (02:00→21:40)
[2018-10-15] MEDS: Promethazine 6.25 MG/5 ML CUP PO PRN ×2 (04:33→09:47)
[2018-10-15] MEDS: Levothyroxine 50 MCG TAB PO SCH (05:56)
[2018-10-15] MEDS ORDERED: Azithromycin 500mg/250ML NS 500 MG/250 ML BAG IVPB SCH (09:00)
[2018-10-15] MEDS: Saccharomyces Boulardi 250 mg Cap PO SCH ×3 (09:47→17:18)
[2018-10-15] MEDS: Nystatin 100,000 Units/ml Oral Susp 5 ml UD PO SCH ×4 (09:47→21:50)
[2018-10-15] MEDS: Pantoprazole 40 mg EC Tab PO SCH (09:47)
[2018-10-15] MEDS: cefTRIAXone IV 1 gm in Dextros 50 ML IVPB SCH (10:05)
--- NOTE | 2018-10-15 10:13 | RAD ---
Date of service: 10/15/2018 HISTORY: pna COMPARISON: 10/10/2018 FINDINGS: LUNGS: No infiltrate. Extensive bilateral apical pleural thickening common nonspecific. There is volume loss in the upper lobes with upward retraction the bobby. Likely postinflammatory/fibrotic. Rule out granulomatous disease. PLEURA: Apical pleural thickening bilaterally. No pleural effusion or pneumothorax. CARDIOVASCULAR: No aortic atherosclerotic calcification present. Normal cardiac size. No pulmonary vascular congestion. OSSEOUS STRUCTURES: No significant abnormalities. VISUALIZED UPPER ABDOMEN: Normal. OTHER FINDINGS: None. IMPRESSION: Bilateral apical pleural thickening with volume loss and upward retraction of the hilar structures. No acute infiltrate.
[2018-10-15] MEDS: Azithromycin 500 MG in Sodium Chloride 0.9% 250 ML IVPB SCH (10:30)
[2018-10-15 11:27] LABS: BASO % 0.5 % (0.0-2.0); EOS # 0.2 K/uL (0.0-0.7); EOS % 3.2 % (0.0-4.0); HEMOGLOBIN 11.2 g/dL (11.0-16.0); LYMPH # 1.6 K/uL (1.0-4.3); LYMPH % 24.3 % (20.0-40.0); MEAN CORPUSCULAR HEMOGLOBIN 30.2 pg (27.0-31.0); MEAN CORPUSCULAR HGB CONC 33.9 g/dL (33.0-37.0); MEAN PLATELET VOLUME 8.6 fL (7.2-11.7); MONO # 0.9 K/uL (0.0-0.8); MONO % 13.2 % (0.0-10.0); NEUT # 3.8 K/uL (1.8-7.0); NEUT % 58.8 % (50.0-75.0); RBC 3.72 Mil/uL (3.80-5.20); RED CELL DISTRIBUTION WIDTH 15.5 % (11.5-14.5); WHITE BLOOD COUNT 6.5 K/uL (4.8-10.8)
[2018-10-15 11:58] LABS: ALB/GLOB RATIO 0.9 (1.0-2.1); ALBUMIN 3.6 g/dL (3.5-5.0); ALT/SGPT 8 U/L (9-52); AST/SGOT 27 U/L (14-36); BLOOD UREA NITROGEN 9 mg/dL (7-17); CALCIUM 9.2 mg/dl (8.6-10.4); GFR NON-AFRICAN AMERICAN > 60
--- NOTE | 2018-10-15 19:08 | CP.PCM.PN ---
Subjective - Date & Time of Evaluation Date of Evaluation: 10/11/18 Time of Evaluation: 19:08 - Subjective Subjective: Comparing of abdominal pain. Comparing of nausea. CAT scan of the chest done as an outpatient showing evidence of cavitary lungs Cough noted mucus production present. Sputum culture negative. Currently on IV antibiotic. Will continue the IV antibiotic. Will get the CT scan of the abdomen and will follow the patient Objective - Vital Signs/Intake and Output Vital Signs (last 24 hours): Temp Pulse Resp BP Pulse Ox 98.8 F 100 H 20 94/59 L 96 10/15/18 15:00 10/15/18 15:00 10/15/18 15:00 10/15/18 15:00 10/15/18 15:00 - Medications Medications: Current Medications Acetaminophen (Tylenol 325mg Tab) 650 mg PO Q6 PRN PRN Reason: Headache Last Admin: 10/13/18 17:41 Dose: 650 mg Albuterol/Ipratropium (Duoneb 3 Mg/0.5 Mg (3 Ml) Ud) 3 ml INH RQ6 [facility] Last Admin: 10/15/18 13:56 Dose: 3 ml Docusate Sodium (Colace) 100 mg PO TID [facility] Last Admin: 10/15/18 17:18 Dose: 100 mg Heparin Sodium (Porcine) (Heparin) 5,000 units SC Q8 [facility] Last Admin: 10/15/18 14:21 Dose: 5,000 units Sodium Chloride (Sodium Chloride 0.9%) 1,000 mls @ 50 mls/hr IV .Q20H [facility] Last Admin: 10/13/18 03:35 Dose: Not Given Ceftriaxone Sodium (Rocephin Iv 1 Gm Duplex) 50 mls @ 100 mls/hr IVPB DAILY@1030 [facility]; Protocol Last Admin: 10/15/18 10:05 Dose: 100 mls/hr Azithromycin 500 mg/ Sodium (Chloride) 250 mls @ 167 mls/hr IVPB Q24H [facility]; Protocol Last Admin: 10/15/18 10:30 Dose: 167 mls/hr Levothyroxine Sodium (Synthroid) 50 mcg PO DAILY@0630 [facility] Last Admin: 10/15/18 05:56 Dose: 50 mcg Nystatin (Nystatin Oral Susp) 5 ml PO QID [facility] Last Admin: 10/15/18 17:18 Dose: 5 ml Pantoprazole Sodium (Protonix Ec Tab) 40 mg PO DAILY [facility] Last Admin: 10/15/18 09:47 Dose: 40 mg Promethazine HCl (Phenergan Syrup) 6.25 mg PO Q6H PRN PRN Reason: Cough Last Admin: 10/15/18 09:47 Dose: 6.25 mg Saccharomyces Boulardii (Florastor) 250 mg PO TID [facility] Last Admin: 10/15/18 17:18 Dose: 250 mg - Labs Labs: 10/15/18 11:09 10/15/18 11:09 PT 14.6 SECONDS (9.7-12.2) H 10/10/18 10:50 INR 1.3 10/10/18 10:50 APTT 38 SECONDS (21-34) H 10/10/18 10:50
--- NOTE | 2018-10-15 19:08 | CP.PCM.PN ---
Subjective - Date & Time of Evaluation Date of Evaluation: 10/12/18 Time of Evaluation: 19:08 - Subjective Subjective: Comparing of cough, sore throat, epigastric pain. Difficulty time in going to the bathroom. Nausea noted. No vomiting today. CT scan of the abdomen showing evidence of diverticulosis without diverticulitis. Will continue the current treatment. Will follow the patient Objective - Vital Signs/Intake and Output Vital Signs (last 24 hours): Temp Pulse Resp BP Pulse Ox 98.8 F 100 H 20 94/59 L 96 10/15/18 15:00 10/15/18 15:00 10/15/18 15:00 10/15/18 15:00 10/15/18 15:00 - Medications Medications: Current Medications Acetaminophen (Tylenol 325mg Tab) 650 mg PO Q6 PRN PRN Reason: Headache Last Admin: 10/13/18 17:41 Dose: 650 mg Albuterol/Ipratropium (Duoneb 3 Mg/0.5 Mg (3 Ml) Ud) 3 ml INH RQ6 [facility] Last Admin: 10/15/18 13:56 Dose: 3 ml Docusate Sodium (Colace) 100 mg PO TID [facility] Last Admin: 10/15/18 17:18 Dose: 100 mg Heparin Sodium (Porcine) (Heparin) 5,000 units SC Q8 [facility] Last Admin: 10/15/18 14:21 Dose: 5,000 units Sodium Chloride (Sodium Chloride 0.9%) 1,000 mls @ 50 mls/hr IV .Q20H [facility] Last Admin: 10/13/18 03:35 Dose: Not Given Ceftriaxone Sodium (Rocephin Iv 1 Gm Duplex) 50 mls @ 100 mls/hr IVPB DAILY@1030 [facility]; Protocol Last Admin: 10/15/18 10:05 Dose: 100 mls/hr Azithromycin 500 mg/ Sodium (Chloride) 250 mls @ 167 mls/hr IVPB Q24H [facility]; Protocol Last Admin: 10/15/18 10:30 Dose: 167 mls/hr Levothyroxine Sodium (Synthroid) 50 mcg PO DAILY@0630 [facility] Last Admin: 10/15/18 05:56 Dose: 50 mcg Nystatin (Nystatin Oral Susp) 5 ml PO QID [facility] Last Admin: 10/15/18 17:18 Dose: 5 ml Pantoprazole Sodium (Protonix Ec Tab) 40 mg PO DAILY [facility] Last Admin: 10/15/18 09:47 Dose: 40 mg Promethazine HCl (Phenergan Syrup) 6.25 mg PO Q6H PRN PRN Reason: Cough Last Admin: 10/15/18 09:47 Dose: 6.25 mg Saccharomyces Boulardii (Florastor) 250 mg PO TID [facility] Last Admin: 10/15/18 17:18 Dose: 250 mg - Labs Labs: 10/15/18 11:09 10/15/18 11:09 PT 14.6 SECONDS (9.7-12.2) H 10/10/18 10:50 INR 1.3 10/10/18 10:50 APTT 38 SECONDS (21-34) H 10/10/18 10:50
--- NOTE | 2018-10-15 19:08 | CP.PCM.PN ---
Subjective - Date & Time of Evaluation Date of Evaluation: 10/13/18 Time of Evaluation: 19:08 - Subjective Subjective: Cough less. Epigastric pain. Weakness present. Nausea. Diarrhea better Stool workup negative. Vital signs stable. Will continue the bronchodilators. On antibiotic. Nausea, but no vomiting. We'll repeat the chest x-ray Objective - Vital Signs/Intake and Output Vital Signs (last 24 hours): Temp Pulse Resp BP Pulse Ox 98.8 F 100 H 20 94/59 L 96 10/15/18 15:00 10/15/18 15:00 10/15/18 15:00 10/15/18 15:00 10/15/18 15:00 - Medications Medications: Current Medications Acetaminophen (Tylenol 325mg Tab) 650 mg PO Q6 PRN PRN Reason: Headache Last Admin: 10/13/18 17:41 Dose: 650 mg Albuterol/Ipratropium (Duoneb 3 Mg/0.5 Mg (3 Ml) Ud) 3 ml INH RQ6 [facility] Last Admin: 10/15/18 13:56 Dose: 3 ml Docusate Sodium (Colace) 100 mg PO TID [facility] Last Admin: 10/15/18 17:18 Dose: 100 mg Heparin Sodium (Porcine) (Heparin) 5,000 units SC Q8 [facility] Last Admin: 10/15/18 14:21 Dose: 5,000 units Sodium Chloride (Sodium Chloride 0.9%) 1,000 mls @ 50 mls/hr IV .Q20H [facility] Last Admin: 10/13/18 03:35 Dose: Not Given Ceftriaxone Sodium (Rocephin Iv 1 Gm Duplex) 50 mls @ 100 mls/hr IVPB DAILY@1030 [facility]; Protocol Last Admin: 10/15/18 10:05 Dose: 100 mls/hr Azithromycin 500 mg/ Sodium (Chloride) 250 mls @ 167 mls/hr IVPB Q24H [facility]; Protocol Last Admin: 10/15/18 10:30 Dose: 167 mls/hr Levothyroxine Sodium (Synthroid) 50 mcg PO DAILY@0630 [facility] Last Admin: 10/15/18 05:56 Dose: 50 mcg Nystatin (Nystatin Oral Susp) 5 ml PO QID [facility] Last Admin: 10/15/18 17:18 Dose: 5 ml Pantoprazole Sodium (Protonix Ec Tab) 40 mg PO DAILY [facility] Last Admin: 10/15/18 09:47 Dose: 40 mg Promethazine HCl (Phenergan Syrup) 6.25 mg PO Q6H PRN PRN Reason: Cough Last Admin: 10/15/18 09:47 Dose: 6.25 mg Saccharomyces Boulardii (Florastor) 250 mg PO TID [facility] Last Admin: 10/15/18 17:18 Dose: 250 mg - Labs Labs: 10/15/18 11:09 10/15/18 11:09 PT 14.6 SECONDS (9.7-12.2) H 10/10/18 10:50 INR 1.3 10/10/18 10:50 APTT 38 SECONDS (21-34) H 10/10/18 10:50
--- NOTE | 2018-10-15 19:09 | CP.PCM.PN ---
Subjective - Date & Time of Evaluation Date of Evaluation: 10/14/18 Time of Evaluation: 19:08 - Subjective Subjective: Feeling slightly better. No chest pain. But still having some abdominal pain, nausea. Patient had a BM yesterday. No chest pain or shortness of breath. Will continue the current treatment. Acute bronchitis. Possible pneumonia. On antibiotic. Epigastric pain. May need a GI evaluation will discuss with the patient tomorrow Objective - Vital Signs/Intake and Output Vital Signs (last 24 hours): Temp Pulse Resp BP Pulse Ox 98.8 F 100 H 20 94/59 L 96 10/15/18 15:00 10/15/18 15:00 10/15/18 15:00 10/15/18 15:00 10/15/18 15:00 - Medications Medications: Current Medications Acetaminophen (Tylenol 325mg Tab) 650 mg PO Q6 PRN PRN Reason: Headache Last Admin: 10/13/18 17:41 Dose: 650 mg Albuterol/Ipratropium (Duoneb 3 Mg/0.5 Mg (3 Ml) Ud) 3 ml INH RQ6 [facility] Last Admin: 10/15/18 13:56 Dose: 3 ml Docusate Sodium (Colace) 100 mg PO TID [facility] Last Admin: 10/15/18 17:18 Dose: 100 mg Heparin Sodium (Porcine) (Heparin) 5,000 units SC Q8 [facility] Last Admin: 10/15/18 14:21 Dose: 5,000 units Sodium Chloride (Sodium Chloride 0.9%) 1,000 mls @ 50 mls/hr IV .Q20H [facility] Last Admin: 10/13/18 03:35 Dose: Not Given Ceftriaxone Sodium (Rocephin Iv 1 Gm Duplex) 50 mls @ 100 mls/hr IVPB DAILY@1030 [facility]; Protocol Last Admin: 10/15/18 10:05 Dose: 100 mls/hr Azithromycin 500 mg/ Sodium (Chloride) 250 mls @ 167 mls/hr IVPB Q24H [facility]; Protocol Last Admin: 10/15/18 10:30 Dose: 167 mls/hr Levothyroxine Sodium (Synthroid) 50 mcg PO DAILY@0630 [facility] Last Admin: 10/15/18 05:56 Dose: 50 mcg Nystatin (Nystatin Oral Susp) 5 ml PO QID [facility] Last Admin: 10/15/18 17:18 Dose: 5 ml Pantoprazole Sodium (Protonix Ec Tab) 40 mg PO DAILY [facility] Last Admin: 10/15/18 09:47 Dose: 40 mg Promethazine HCl (Phenergan Syrup) 6.25 mg PO Q6H PRN PRN Reason: Cough Last Admin: 10/15/18 09:47 Dose: 6.25 mg Saccharomyces Boulardii (Florastor) 250 mg PO TID [facility] Last Admin: 10/15/18 17:18 Dose: 250 mg - Labs Labs: 10/15/18 11:09 10/15/18 11:09 PT 14.6 SECONDS (9.7-12.2) H 10/10/18 10:50 INR 1.3 10/10/18 10:50 APTT 38 SECONDS (21-34) H 10/10/18 10:50
--- NOTE | 2018-10-15 19:09 | CP.PCM.PN ---
Subjective - Date & Time of Evaluation Date of Evaluation: 10/15/18 Time of Evaluation: 19:08 - Subjective Subjective: Patient comparing of vomiting. Comparing of abdominal pain. This morning had a one episode of vomiting. Cough still present, soreness in the back of the throat noted. Complaining of pain in the rectal area. On examination: Vital signs stable otherwise. Chest good air entry regular heart sound Epigastric abdominal pain noted. We will get a GI evaluation today. May need IV fluid. He could . Currently on antibiotic for acute bronchitis and pneumonia . And will follow the patient Objective - Vital Signs/Intake and Output Vital Signs (last 24 hours): Temp Pulse Resp BP Pulse Ox 98.8 F 100 H 20 94/59 L 96 10/15/18 15:00 10/15/18 15:00 10/15/18 15:00 10/15/18 15:00 10/15/18 15:00 - Medications Medications: Current Medications Acetaminophen (Tylenol 325mg Tab) 650 mg PO Q6 PRN PRN Reason: Headache Last Admin: 10/13/18 17:41 Dose: 650 mg Albuterol/Ipratropium (Duoneb 3 Mg/0.5 Mg (3 Ml) Ud) 3 ml INH RQ6 [facility] Last Admin: 10/15/18 13:56 Dose: 3 ml Docusate Sodium (Colace) 100 mg PO TID [facility] Last Admin: 10/15/18 17:18 Dose: 100 mg Heparin Sodium (Porcine) (Heparin) 5,000 units SC Q8 [facility] Last Admin: 10/15/18 14:21 Dose: 5,000 units Sodium Chloride (Sodium Chloride 0.9%) 1,000 mls @ 50 mls/hr IV .Q20H [facility] Last Admin: 10/13/18 03:35 Dose: Not Given Ceftriaxone Sodium (Rocephin Iv 1 Gm Duplex) 50 mls @ 100 mls/hr IVPB DAILY@1030 [facility]; Protocol Last Admin: 10/15/18 10:05 Dose: 100 mls/hr Azithromycin 500 mg/ Sodium (Chloride) 250 mls @ 167 mls/hr IVPB Q24H [facility]; Protocol Last Admin: 10/15/18 10:30 Dose: 167 mls/hr Levothyroxine Sodium (Synthroid) 50 mcg PO DAILY@0630 [facility] Last Admin: 10/15/18 05:56 Dose: 50 mcg Nystatin (Nystatin Oral Susp) 5 ml PO QID [facility] Last Admin: 10/15/18 17:18 Dose: 5 ml Pantoprazole Sodium (Protonix Ec Tab) 40 mg PO DAILY [facility] Last Admin: 10/15/18 09:47 Dose: 40 mg Promethazine HCl (Phenergan Syrup) 6.25 mg PO Q6H PRN PRN Reason: Cough Last Admin: 10/15/18 09:47 Dose: 6.25 mg Saccharomyces Boulardii (Florastor) 250 mg PO TID [facility] Last Admin: 10/15/18 17:18 Dose: 250 mg - Labs Labs: 10/15/18 11:09 10/15/18 11:09 PT 14.6 SECONDS (9.7-12.2) H 10/10/18 10:50 INR 1.3 10/10/18 10:50 APTT 38 SECONDS (21-34) H 10/10/18 10:50
[2018-10-16] MEDS: Albuterol-Ipratrop 3 mg / 0.5 (3 ml) UD INH SCH ×4 (01:24→21:33)
[2018-10-16] MEDS: Promethazine 6.25 MG/5 ML CUP PO PRN ×3 (04:55→21:11)
[2018-10-16] MEDS: Levothyroxine 50 MCG TAB PO SCH (05:39)
[2018-10-16] MEDS: Nystatin 100,000 Units/ml Oral Susp 5 ml UD PO SCH ×3 (10:38→18:09)
[2018-10-16] MEDS: Pantoprazole 40 mg EC Tab PO SCH (10:38)
[2018-10-16] MEDS: Saccharomyces Boulardi 250 mg Cap PO SCH ×3 (10:38→18:09)
[2018-10-16] MEDS: cefTRIAXone IV 1 gm in Dextros 50 ML IVPB SCH (10:39)
[2018-10-16] MEDS: Azithromycin 500 MG in Sodium Chloride 0.9% 250 ML IVPB SCH (10:51)
--- NOTE | 2018-10-16 19:10 | CP.PCM.PN ---
Subjective - Date & Time of Evaluation Date of Evaluation: 10/16/18 Time of Evaluation: 19:09 - Subjective Subjective: still having epigastric pain and buring in chest area cough noted thick yellow mucous noted nausea noted no fever no diarrhea Temp Pulse Resp BP Pulse Ox 98.0 F 100 H 20 93/53 L 97 10/16/18 15:00 10/16/18 15:00 10/16/18 15:00 10/16/18 15:00 10/16/18 15:00 chest good air entry regular hs abd soft no edema on antibiotics will add carafate GI eval pending add mucormyst OOB to chair Objective - Vital Signs/Intake and Output Vital Signs (last 24 hours): Temp Pulse Resp BP Pulse Ox 98.0 F 100 H 20 93/53 L 97 10/16/18 15:00 10/16/18 15:00 10/16/18 15:00 10/16/18 15:00 10/16/18 15:00 - Medications Medications: Current Medications Acetaminophen (Tylenol 325mg Tab) 650 mg PO Q6 PRN PRN Reason: Headache Last Admin: 10/13/18 17:41 Dose: 650 mg Albuterol/Ipratropium (Duoneb 3 Mg/0.5 Mg (3 Ml) Ud) 3 ml INH RQ6 [facility] Last Admin: 10/16/18 13:35 Dose: 3 ml Docusate Sodium (Colace) 100 mg PO TID [facility] Last Admin: 10/16/18 18:09 Dose: 100 mg Heparin Sodium (Porcine) (Heparin) 5,000 units SC Q8 [facility] Last Admin: 10/16/18 13:58 Dose: 5,000 units Ceftriaxone Sodium (Rocephin Iv 1 Gm Duplex) 50 mls @ 100 mls/hr IVPB DAILY@1030 [facility]; Protocol Last Admin: 10/16/18 10:39 Dose: 100 mls/hr Azithromycin 500 mg/ Sodium (Chloride) 250 mls @ 167 mls/hr IVPB Q24H [facility]; Protocol Last Admin: 10/16/18 10:51 Dose: 167 mls/hr Levothyroxine Sodium (Synthroid) 50 mcg PO DAILY@0630 [facility] Last Admin: 10/16/18 05:39 Dose: 50 mcg Nystatin (Nystatin Oral Susp) 5 ml PO QID [facility] Last Admin: 10/16/18 18:09 Dose: 5 ml Pantoprazole Sodium (Protonix Ec Tab) 40 mg PO DAILY [facility] Last Admin: 10/16/18 10:38 Dose: 40 mg Promethazine HCl (Phenergan Syrup) 6.25 mg PO Q6H PRN PRN Reason: Cough Last Admin: 10/16/18 10:50 Dose: 6.25 mg Saccharomyces Boulardii (Florastor) 250 mg PO TID [facility] Last Admin: 10/16/18 18:09 Dose: 250 mg - Labs Labs: 10/15/18 11:09 10/15/18 11:09 PT 14.6 SECONDS (9.7-12.2) H 10/10/18 10:50 INR 1.3 10/10/18 10:50 APTT 38 SECONDS (21-34) H 10/10/18 10:50
--- NOTE | 2018-10-16 20:31 | CP.PCM.CON ---
History of Present Illness - History of Present Illness History of Present Illness: Asked to see pt for abd pain, diarrhea. 73 yo female h/o HTN, HypoTH, asthma,, anemia, TB as a child, COLON CA diagnosed 11/2017 Now admittted c/o worse cough- bronchitis. Pt reports 1 week of abdom pain- epig and mid abdomen, nausea, vomiting, ROCÍO, diarrhea- but also constiip. Haad recent antibiotics for URI. Denies wt loss, RB. Reports sl fever at home. Reports recent colonsocopy was ok. Review of Systems - Constitutional Constitutional: Fatigue, Fever, Weakness. absent: Weight Gain, Weight Loss - EENT Eyes: absent: Photophobia Nose/Mouth/Throat: absent: Throat Swelling - Cardiovascular Cardiovascular: absent: Chest Pain - Respiratory Respiratory: Cough. absent: Hemoptysis, Wheezing - Gastrointestinal Gastrointestinal: Abdominal Pain, Bloating, Constipation, Diarrhea, Heartburn, Nausea, Vomiting. absent: Dysphagia, Hematemesis, Hematochezia, Melena - Genitourinary Genitourinary: absent: Change in Urinary Stream - Musculoskeletal Musculoskeletal: absent: Muscle Cramps - Integumentary Integumentary: absent: Jaundice - Neurological Neurological: absent: Convulsions Past Patient History - Infectious Disease Hx of Infectious Diseases: None - Past Medical History & Family History Past Medical History?: Yes - Past Social History Smoking Status: Never Smoked - PULMONARY Hx Asthma: Yes Hx Bronchitis: Yes Hx Pneumonia: Yes - ENDOCRINE/METABOLIC Hx Hyperthyroidism: Yes Hx Hypothyroidism: Yes - MUSCULOSKELETAL/RHEUMATOLOGICAL Hx Falls: Yes (according to son, patient has fallen at home) - GASTROINTESTINAL Other/Comment: COLON CANCER - PSYCHIATRIC Hx Substance Use: No - SURGICAL HISTORY Hx Appendectomy: Yes Hx Cholecystectomy: Yes - ANESTHESIA Hx Anesthesia: Yes Hx Anesthesia Reactions: No Meds Allergies/Adverse Reactions: Allergies Allergy/AdvReac Type Severity Reaction Status Date / Time No Known Allergies Allergy Verified 12/18/17 21:16 - Medications Medications: Current Medications Acetaminophen (Tylenol 325mg Tab) 650 mg PO Q6 PRN PRN Reason: Headache Last Admin: 10/13/18 17:41 Dose: 650 mg Acetylcysteine (Acetylcysteine 20%) 4 ml INH RQ6 [facility] Albuterol/Ipratropium (Duoneb 3 Mg/0.5 Mg (3 Ml) Ud) 3 ml INH RQ6 [facility] Last Admin: 10/16/18 13:35 Dose: 3 ml Heparin Sodium (Porcine) (Heparin) 5,000 units SC Q8 [facility] Last Admin: 10/16/18 13:58 Dose: 5,000 units Ceftriaxone Sodium (Rocephin Iv 1 Gm Duplex) 50 mls @ 100 mls/hr IVPB DAILY@1030 [facility]; Protocol Last Admin: 10/16/18 10:39 Dose: 100 mls/hr Levothyroxine Sodium (Synthroid) 50 mcg PO DAILY@0630 [facility] Last Admin: 10/16/18 05:39 Dose: 50 mcg Pantoprazole Sodium (Protonix Ec Tab) 40 mg PO DAILY [facility] Last Admin: 10/16/18 10:38 Dose: 40 mg Promethazine HCl (Phenergan Syrup) 6.25 mg PO Q6H PRN PRN Reason: Cough Last Admin: 10/16/18 10:50 Dose: 6.25 mg Saccharomyces Boulardii (Florastor) 250 mg PO TID [facility] Last Admin: 10/16/18 18:09 Dose: 250 mg Sucralfate (Carafate Oral Susp) 1 gm PO TID [facility] Physical Exam - Constitutional Appears: Non-toxic - Neck Exam Neck exam: Negative for: Tenderness - Respiratory Exam Respiratory Exam: Clear to Auscultation Bilateral - Cardiovascular Exam Cardiovascular Exam: RRR - GI/Abdominal Exam GI & Abdominal Exam: Hernia, Normal Bowel Sounds, Soft. absent: Distended, Firm, Guarding, Mass, Rebound, Tenderness - Extremities Exam Extremities exam: Negative for: calf tenderness - Neurological Exam Neurological exam: Alert, Oriented x3 Results - Vital Signs Recent Vital Signs: Last Vital Signs Temp 98.0 F 10/16/18 15:00 Pulse 100 H 10/16/18 15:00 Resp 20 10/16/18 15:00 BP 93/53 L 10/16/18 15:00 Pulse Ox 97 10/16/18 15:00 - Labs Result Diagrams: 10/15/18 11:09 10/15/18 11:09 Assessment & Plan (1) Diarrhea Assessment and Plan: but also constip. Had recent Abx- check c difficile. Consdier gastroenteritis. Stool is neg for OB and WBC Status: Acute (2) Colon cancer Assessment and Plan: 11/2017. Ptreports was "all taken care of". She does not know where surgery was done. Status: Acute (3) Abdominal pain Assessment and Plan: Consider gastroenteritis, c diff, Gastritis, ventral hernia, diverticulosis. CT noted P- PPi, check stools, Status: Acute (4) Nausea & vomiting Status: Acute (5) Bronchitis Status: Acute (6) Constipation Status: Acute (7) CVA (cerebral vascular accident) Status: Acute
[2018-10-16] MEDS: Acetylcysteine 20% Inhal Soln (4ml) INH SCH (21:33)
[2018-10-17] MEDS: Acetylcysteine 20% Inhal Soln (4ml) INH SCH ×4 (02:51→20:19)
[2018-10-17] MEDS: Albuterol-Ipratrop 3 mg / 0.5 (3 ml) UD INH SCH ×4 (02:51→20:19)
[2018-10-17] MEDS: Promethazine 6.25 MG/5 ML CUP PO PRN ×3 (03:27→21:41)
[2018-10-17] MEDS: Levothyroxine 50 MCG TAB PO SCH (06:21)
[2018-10-17 07:33] LABS: BASO % 0.5 % (0.0-2.0); EOS # 0.3 K/uL (0.0-0.7); EOS % 4.4 % (0.0-4.0); HEMOGLOBIN 10.1 g/dL (11.0-16.0); LYMPH # 1.9 K/uL (1.0-4.3); LYMPH % 30.1 % (20.0-40.0); MEAN CELL VOLUME 88.2 fL (81.0-99.0); MEAN CORPUSCULAR HEMOGLOBIN 29.4 pg (27.0-31.0); MEAN CORPUSCULAR HGB CONC 33.3 g/dL (33.0-37.0); MEAN PLATELET VOLUME 8.3 fL (7.2-11.7); MONO # 1.1 K/uL (0.0-0.8); MONO % 17.4 % (0.0-10.0); NEUT % 47.6 % (50.0-75.0); NRBC % 0.1 % (0.0-2.0); RBC 3.45 Mil/uL (3.80-5.20); RED CELL DISTRIBUTION WIDTH 15.8 % (11.5-14.5); WHITE BLOOD COUNT 6.3 K/uL (4.8-10.8)
[2018-10-17 07:53] LABS: ALB/GLOB RATIO 0.9 (1.0-2.1); ALBUMIN 3.2 g/dL (3.5-5.0); ALT/SGPT 25 U/L (9-52); AST/SGOT 34 U/L (14-36); BLOOD UREA NITROGEN 9 mg/dL (7-17); CALCIUM 8.8 mg/dl (8.6-10.4); GFR NON-AFRICAN AMERICAN > 60
--- NOTE | 2018-10-17 09:51 | CP.PCM.PN ---
Subjective - Date & Time of Evaluation Date of Evaluation: 10/17/18 Time of Evaluation: 08:15 - Subjective Subjective: F/U abdominal pain c/o dyspepsia, bloating, upper abdominal discomfort, chest radiation, oral pain, usually precipitated by food intake, unrelieved by Protonix or Carafte, symptoms present since colon surgery. Poor historian. No BMs noted. Objective - Vital Signs/Intake and Output Vital Signs (last 24 hours): Temp Pulse Resp BP Pulse Ox 97.3 F L 96 H 20 95/57 L 95 10/17/18 08:00 10/17/18 08:00 10/17/18 08:00 10/17/18 08:00 10/17/18 08:00 - Medications Medications: Current Medications Acetaminophen (Tylenol 325mg Tab) 650 mg PO Q6 PRN PRN Reason: Headache Last Admin: 10/13/18 17:41 Dose: 650 mg Acetylcysteine (Acetylcysteine 20%) 4 ml INH RQ6 [facility] Last Admin: 10/17/18 07:26 Dose: 4 ml Albuterol/Ipratropium (Duoneb 3 Mg/0.5 Mg (3 Ml) Ud) 3 ml INH RQ6 [facility] Last Admin: 10/17/18 07:26 Dose: 3 ml Dicyclomine HCl (Bentyl) 10 mg PO QID [facility] Heparin Sodium (Porcine) (Heparin) 5,000 units SC Q8 [facility] Last Admin: 10/17/18 06:21 Dose: 5,000 units Ceftriaxone Sodium (Rocephin Iv 1 Gm Duplex) 50 mls @ 100 mls/hr IVPB DAILY@1030 [facility]; Protocol Last Admin: 10/16/18 10:39 Dose: 100 mls/hr Levothyroxine Sodium (Synthroid) 50 mcg PO DAILY@0630 [facility] Last Admin: 10/17/18 06:21 Dose: 50 mcg Pantoprazole Sodium (Protonix Ec Tab) 40 mg PO DAILY [facility] Last Admin: 10/16/18 10:38 Dose: 40 mg Promethazine HCl (Phenergan Syrup) 6.25 mg PO Q6H PRN PRN Reason: Cough Last Admin: 10/17/18 03:27 Dose: 6.25 mg Saccharomyces Boulardii (Florastor) 250 mg PO TID [facility] Last Admin: 10/16/18 18:09 Dose: 250 mg Sucralfate (Carafate Oral Susp) 1 gm PO TID [facility] - Labs Labs: 10/17/18 07:12 10/17/18 07:12 PT 14.6 SECONDS (9.7-12.2) H 10/10/18 10:50 INR 1.3 10/10/18 10:50 APTT 38 SECONDS (21-34) H 10/10/18 10:50 - Constitutional Appears: Well - Eye Exam Eye Exam: absent: Scleral icterus - Respiratory Exam Respiratory Exam: NORMAL BREATHING PATTERN - Cardiovascular Exam Cardiovascular Exam: RRR - GI/Abdominal Exam GI & Abdominal Exam: absent: Tenderness Assessment and Plan (1) Abdominal pain Assessment & Plan: Appears functional. Not responding to PPI. Will try Bentyl. If no relief, recommend EGD Status: Acute (2) Colon cancer Assessment & Plan: addressed by previous physicains. Poor historian and no records available Status: Acute
[2018-10-17] MEDS: Saccharomyces Boulardi 250 mg Cap PO SCH ×3 (09:56→17:44)
[2018-10-17] MEDS: cefTRIAXone IV 1 gm in Dextros 50 ML IVPB SCH (09:56)
[2018-10-17] MEDS: Pantoprazole 40 mg EC Tab PO SCH (09:56)
[2018-10-17] MEDS: Sucralfate 1 gm/10 ml Oral Susp UD PO SCH ×3 (09:56→17:44)
[2018-10-18] MEDS: Albuterol-Ipratrop 3 mg / 0.5 (3 ml) UD INH SCH ×4 (02:00→19:21)
[2018-10-18] MEDS: Acetylcysteine 20% Inhal Soln (4ml) INH SCH ×4 (02:00→19:21)
[2018-10-18] MEDS: Levothyroxine 50 MCG TAB PO SCH (05:55)
[2018-10-18 07:51] LABS: BASO % 0.4 % (0.0-2.0); EOS # 0.3 K/uL (0.0-0.7); EOS % 5.4 % (0.0-4.0); HEMOGLOBIN 10.3 g/dL (11.0-16.0); LYMPH % 33.9 % (20.0-40.0); MEAN CELL VOLUME 88.4 fL (81.0-99.0); MEAN CORPUSCULAR HEMOGLOBIN 30.1 pg (27.0-31.0); MEAN CORPUSCULAR HGB CONC 34.1 g/dL (33.0-37.0); MEAN PLATELET VOLUME 8.4 fL (7.2-11.7); MONO # 1.1 K/uL (0.0-0.8); NEUT # 2.5 K/uL (1.8-7.0); NEUT % 42.3 % (50.0-75.0); NRBC % 0.1 % (0.0-2.0); RBC 3.42 Mil/uL (3.80-5.20); RED CELL DISTRIBUTION WIDTH 16.1 % (11.5-14.5); WHITE BLOOD COUNT 5.9 K/uL (4.8-10.8)
[2018-10-18 08:39] LABS: ALB/GLOB RATIO 0.9 (1.0-2.1); ALBUMIN 3.3 g/dL (3.5-5.0); ALT/SGPT 25 U/L (9-52); AST/SGOT 35 U/L (14-36); BLOOD UREA NITROGEN 7 mg/dL (7-17); CALCIUM 8.9 mg/dl (8.6-10.4); GFR NON-AFRICAN AMERICAN > 60
[2018-10-18] MEDS: Sucralfate 1 gm/10 ml Oral Susp UD PO SCH ×3 (09:39→18:37)
[2018-10-18] MEDS: cefTRIAXone IV 1 gm in Dextros 50 ML IVPB SCH (09:39)
[2018-10-18] MEDS: Pantoprazole 40 mg EC Tab PO SCH (09:39)
[2018-10-18] MEDS: Promethazine 6.25 MG/5 ML CUP PO PRN (09:39)
[2018-10-18] MEDS: Saccharomyces Boulardi 250 mg Cap PO SCH ×3 (09:39→18:34)
--- NOTE | 2018-10-18 10:53 | CP.PCM.PN ---
Subjective - Date & Time of Evaluation Date of Evaluation: 10/18/18 Time of Evaluation: 10:50 - Subjective Subjective: Patient continues to complain of upper abdominal discomfort after meals. She also complains of heartburn and constipation. She denies having diarrhea and rectal bleeding. Objective - Vital Signs/Intake and Output Vital Signs (last 24 hours): Temp Pulse Resp BP Pulse Ox 98.1 F 90 20 110/63 98 10/18/18 07:00 10/18/18 07:00 10/18/18 07:00 10/18/18 07:00 10/18/18 07:00 Intake and Output: 10/18/18 10/18/18 06:59 18:59 Intake Total 500 Balance 500 - Medications Medications: Current Medications Acetaminophen (Tylenol 325mg Tab) 650 mg PO Q6 PRN PRN Reason: Headache Last Admin: 10/13/18 17:41 Dose: 650 mg Acetylcysteine (Acetylcysteine 20%) 4 ml INH RQ6 [facility] Last Admin: 10/18/18 02:00 Dose: Not Given Albuterol/Ipratropium (Duoneb 3 Mg/0.5 Mg (3 Ml) Ud) 3 ml INH RQ6 [facility] Last Admin: 10/18/18 02:00 Dose: Not Given Dicyclomine HCl (Bentyl) 10 mg PO QID [facility] Last Admin: 10/17/18 21:42 Dose: 10 mg Heparin Sodium (Porcine) (Heparin) 5,000 units SC Q8 [facility] Last Admin: 10/18/18 05:55 Dose: 5,000 units Ceftriaxone Sodium (Rocephin Iv 1 Gm Duplex) 50 mls @ 100 mls/hr IVPB DAILY@1030 [facility]; Protocol Last Admin: 10/18/18 09:39 Dose: 100 mls/hr Levothyroxine Sodium (Synthroid) 50 mcg PO DAILY@0630 [facility] Last Admin: 10/18/18 05:55 Dose: 50 mcg Pantoprazole Sodium (Protonix Ec Tab) 40 mg PO DAILY [facility] Last Admin: 10/18/18 09:39 Dose: 40 mg Promethazine HCl (Phenergan Syrup) 6.25 mg PO Q6H PRN PRN Reason: Cough Last Admin: 10/18/18 09:39 Dose: 6.25 mg Saccharomyces Boulardii (Florastor) 250 mg PO TID [facility] Last Admin: 11/22/18 09:39 Dose: 250 mg Sucralfate (Carafate Oral Susp) 1 gm PO TID [facility] Last Admin: 10/18/18 09:39 Dose: 1 gm - Labs Labs: 10/18/18 07:41 10/18/18 07:41 PT 14.6 SECONDS (9.7-12.2) H 10/10/18 10:50 INR 1.3 10/10/18 10:50 APTT 38 SECONDS (21-34) H 10/10/18 10:50 - Constitutional Appears: No Acute Distress - Head Exam Head Exam: ATRAUMATIC, NORMOCEPHALIC - Eye Exam Eye Exam: EOMI, PERRL - Neck Exam Neck Exam: absent: Lymphadenopathy, Thyromegaly - Respiratory Exam Respiratory Exam: NORMAL BREATHING PATTERN. absent: Rales, Rhonchi, Wheezes - Cardiovascular Exam Cardiovascular Exam: REGULAR RHYTHM, +S1, +S2. absent: Gallop, Rubs, Murmur - GI/Abdominal Exam GI & Abdominal Exam: Soft, Normal Bowel Sounds. absent: Tenderness, Mass, Organomegaly - Rectal Exam Rectal Exam: Deferred - Extremities Exam Extremities Exam: absent: Calf Tenderness, Pedal Edema Assessment and Plan (1) Abdominal pain Assessment & Plan: Abdominal pain is essentially unchanged. Stool for occult blood was negative on two occasions. She is now anemic, and iron studies, B12, and folic acid will be checked. Status: Acute
[2018-10-19] MEDS: Albuterol-Ipratrop 3 mg / 0.5 (3 ml) UD INH SCH ×4 (01:48→19:44)
[2018-10-19] MEDS: Acetylcysteine 20% Inhal Soln (4ml) INH SCH ×4 (01:48→19:44)
[2018-10-19] MEDS: Levothyroxine 50 MCG TAB PO SCH (05:53)
[2018-10-19 08:43] LABS: IRON 111 ug/dL (37-170)
[2018-10-19 08:52] LABS: TOTAL IRON BINDING CAPACITY 264 ug/dL (250-450)
[2018-10-19 08:57] LABS: % IRON SATURATION 42 (20-55)
[2018-10-19 09:16] LABS: FERRITIN 21.2 ng/mL
[2018-10-19 09:46] LABS: FOLATE 8.6 ng/mL
[2018-10-19] MEDS: cefTRIAXone IV 1 gm in Dextros 50 ML IVPB SCH (09:48)
[2018-10-19] MEDS: Sucralfate 1 gm/10 ml Oral Susp UD PO SCH ×3 (09:51→17:23)
[2018-10-19] MEDS: Saccharomyces Boulardi 250 mg Cap PO SCH ×3 (09:52→17:23)
[2018-10-19] MEDS: Pantoprazole 40 mg EC Tab PO SCH (09:52)
--- NOTE | 2018-10-19 10:21 | CP.PCM.PN ---
Subjective - Date & Time of Evaluation Date of Evaluation: 10/19/18 Time of Evaluation: 10:18 - Subjective Subjective: f/u abdom pain Reports epig and RUQ pain after eating- medicines only sl help. Denies RB, melena, wt loss, fever, chills CP, SOB, LAN, cough Objective - Vital Signs/Intake and Output Vital Signs (last 24 hours): Temp Pulse Resp BP Pulse Ox 98.3 F 90 20 146/79 100 10/19/18 08:00 10/19/18 08:00 10/19/18 08:00 10/19/18 08:00 10/19/18 08:00 - Medications Medications: Current Medications Acetaminophen (Tylenol 325mg Tab) 650 mg PO Q6 PRN PRN Reason: Headache Last Admin: 10/13/18 17:41 Dose: 650 mg Acetylcysteine (Acetylcysteine 20%) 4 ml INH RQ6 [facility] Last Admin: 10/19/18 07:42 Dose: 4 ml Albuterol/Ipratropium (Duoneb 3 Mg/0.5 Mg (3 Ml) Ud) 3 ml INH RQ6 [facility] Last Admin: 10/19/18 07:42 Dose: 3 ml Dicyclomine HCl (Bentyl) 10 mg PO QID [facility] Last Admin: 10/19/18 09:52 Dose: 10 mg Heparin Sodium (Porcine) (Heparin) 5,000 units SC Q8 [facility] Last Admin: 10/19/18 05:53 Dose: 5,000 units Ceftriaxone Sodium (Rocephin Iv 1 Gm Duplex) 50 mls @ 100 mls/hr IVPB DAILY@1030 [facility]; Protocol Last Admin: 10/19/18 09:48 Dose: 100 mls/hr Levothyroxine Sodium (Synthroid) 50 mcg PO DAILY@0630 [facility] Last Admin: 10/19/18 05:53 Dose: 50 mcg Pantoprazole Sodium (Protonix Ec Tab) 40 mg PO DAILY [facility] Last Admin: 10/19/18 09:52 Dose: 40 mg Promethazine HCl (Phenergan Syrup) 6.25 mg PO Q6H PRN PRN Reason: Cough Last Admin: 10/18/18 09:39 Dose: 6.25 mg Saccharomyces Boulardii (Florastor) 250 mg PO TID [facility] Last Admin: 10/19/18 09:52 Dose: 250 mg Sucralfate (Carafate Oral Susp) 1 gm PO TID [facility] Last Admin: 10/19/18 09:51 Dose: 1 gm - Labs Labs: 10/18/18 07:41 10/18/18 07:41 PT 14.6 SECONDS (9.7-12.2) H 10/10/18 10:50 INR 1.3 10/10/18 10:50 APTT 38 SECONDS (21-34) H 10/10/18 10:50 - Constitutional Appears: Well - Respiratory Exam Respiratory Exam: Clear to Ausculation Bilateral - Cardiovascular Exam Cardiovascular Exam: RRR - GI/Abdominal Exam GI & Abdominal Exam: Soft, Normal Bowel Sounds. absent: Guarding, Rigid, Tenderness, Mass - Extremities Exam Extremities Exam: absent: Calf Tenderness - Neurological Exam Neurological Exam: Alert, Awake, Oriented x3 Assessment and Plan (1) Diarrhea Assessment & Plan: Nurse report less diarrhea Status: Acute (2) Colon cancer Assessment & Plan: Report of colon cancer 11/2017, but CT shows no evidence of surgery.. I asked patient to bring in her records. She was done here at , but there are no such records. Status: Acute (3) Abdominal pain Assessment & Plan: after eating. Consider GB, gastrits. Sl help with PPI, carafate, bentyl. Stool OB is neg x 2. Rec- sono, then consider EGD. Status: Acute (4) Nausea & vomiting Assessment & Plan: Still reports nausea Status: Acute (5) Bronchitis Status: Acute (6) Constipation Status: Acute (7) CVA (cerebral vascular accident) Status: Acute
--- NOTE | 2018-10-19 12:44 | US ---
Date of service: 10/19/2018 HISTORY: RUQ pain after eating COMPARISON: Comparison is made to the previous CT dated 10/11/2018 TECHNIQUE: Sonographic evaluation of the abdomen. FINDINGS: LIVER: Measures 12.65 cm. Mild increased echogenicity of the liver parenchyma. No mass. No intrahepatic bile duct dilatation. GALLBLADDER: Status post cholecystectomy. COMMON BILE DUCT: Measures 3 mm. No stones. No dilatation. PANCREAS: The pancreas is obscured by overlying bowel gas. RIGHT KIDNEY: Measures 11.6 x 4.6 x 5.7cm. Normal echogenicity. No calculus, mass, or hydronephrosis. LEFT KIDNEY: Measures 10.8 x 5.2 x 5.5cm. Normal echogenicity. No calculus, mass, or hydronephrosis. SPLEEN: Normal in size and contour. No mass. AORTA: No aneurysmal dilatation. IVC: Unremarkable. OTHER FINDINGS: None. IMPRESSION: Status post cholecystectomy. Mildly echogenic liver likely due to mild fibrofatty infiltration. The pancreas is obscured by overlying bowel gas.
[2018-10-20] MEDS: Acetylcysteine 20% Inhal Soln (4ml) INH SCH ×3 (01:19→19:54)
[2018-10-20] MEDS: Albuterol-Ipratrop 3 mg / 0.5 (3 ml) UD INH SCH ×3 (01:20→19:53)
[2018-10-20] MEDS: Levothyroxine 50 MCG TAB PO SCH (06:12)
[2018-10-20] MEDS: Pantoprazole 40 mg EC Tab PO SCH (09:20)
[2018-10-20] MEDS: Sucralfate 1 gm/10 ml Oral Susp UD PO SCH ×3 (09:20→17:46)
[2018-10-20] MEDS: Saccharomyces Boulardi 250 mg Cap PO SCH ×3 (09:21→17:46)
--- NOTE | 2018-10-20 11:09 | CP.PCM.PN ---
Subjective - Date & Time of Evaluation Date of Evaluation: 10/20/18 Time of Evaluation: 11:07 - Subjective Subjective: Patient now still feeling throat dryness. Cough noted. Epigastric pain She had vomiting last night. Bowel movements are having hard stools noted. Chest minimal bilateral wheezing noted Regular heart sound. Afebrile Abdomen epigastric pain noted Currently off antibiotic. Suggested to have sputum culture again. 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 Possible ongoing bronchitic, bronchiectatic changes. Will get the sputum culture again. Will add gabapentin, to reduce cough. Also I added a low-dose corticosteroid. And will follow-up the patient Objective - Vital Signs/Intake and Output Vital Signs (last 24 hours): Temp Pulse Resp BP Pulse Ox 97.5 F L 79 20 99/53 L 95 10/20/18 07:30 10/20/18 07:30 10/20/18 07:30 10/20/18 07:30 10/20/18 07:30 - Medications Medications: Current Medications Acetaminophen (Tylenol 325mg Tab) 650 mg PO Q6 PRN PRN Reason: Headache Last Admin: 10/13/18 17:41 Dose: 650 mg Acetylcysteine (Acetylcysteine 20%) 4 ml INH RQ6 [facility] Last Admin: 10/20/18 08:12 Dose: 4 ml Albuterol/Ipratropium (Duoneb 3 Mg/0.5 Mg (3 Ml) Ud) 3 ml INH RQ6 [facility] Last Admin: 10/20/18 08:12 Dose: 3 ml Dicyclomine HCl (Bentyl) 10 mg PO QID [facility] Last Admin: 10/20/18 09:29 Dose: 10 mg Heparin Sodium (Porcine) (Heparin) 5,000 units SC Q8 [facility] Last Admin: 10/20/18 06:12 Dose: 5,000 units Levothyroxine Sodium (Synthroid) 50 mcg PO DAILY@0630 [facility] Last Admin: 10/20/18 06:12 Dose: 50 mcg Ondansetron HCl (Zofran Inj) 4 mg IVP Q8 PRN PRN Reason: Nausea/Vomiting Last Admin: 10/19/18 17:23 Dose: 4 mg Pantoprazole Sodium (Protonix Ec Tab) 40 mg PO DAILY [facility] Last Admin: 10/20/18 09:20 Dose: 40 mg Promethazine HCl (Phenergan Syrup) 6.25 mg PO Q6H PRN PRN Reason: Cough Last Admin: 10/18/18 09:39 Dose: 6.25 mg Saccharomyces Boulardii (Florastor) 250 mg PO TID [facility] Last Admin: 10/20/18 09:21 Dose: 250 mg Sucralfate (Carafate Oral Susp) 1 gm PO TID [facility] Last Admin: 10/20/18 09:20 Dose: 1 gm - Labs Labs: 10/18/18 07:41 10/18/18 07:41 PT 14.6 SECONDS (9.7-12.2) H 10/10/18 10:50 INR 1.3 10/10/18 10:50 APTT 38 SECONDS (21-34) H 10/10/18 10:50
--- NOTE | 2018-10-20 11:18 | CP.PCM.PN ---
Subjective - Date & Time of Evaluation Date of Evaluation: 10/20/18 Time of Evaluation: 11:13 - Subjective Subjective: Patient complains of heartburn, constipation, and vomiting "phlegm." She denies having rectal bleeding. Objective - Vital Signs/Intake and Output Vital Signs (last 24 hours): Temp Pulse Resp BP Pulse Ox 97.5 F L 79 20 99/53 L 95 10/20/18 07:30 10/20/18 07:30 10/20/18 07:30 10/20/18 07:30 10/20/18 07:30 - Medications Medications: Current Medications Acetaminophen (Tylenol 325mg Tab) 650 mg PO Q6 PRN PRN Reason: Headache Last Admin: 10/13/18 17:41 Dose: 650 mg Acetylcysteine (Acetylcysteine 20%) 4 ml INH RQ6 [facility] Last Admin: 10/20/18 08:12 Dose: 4 ml Albuterol/Ipratropium (Duoneb 3 Mg/0.5 Mg (3 Ml) Ud) 3 ml INH RQ6 [facility] Last Admin: 10/20/18 08:12 Dose: 3 ml Dicyclomine HCl (Bentyl) 10 mg PO QID [facility] Last Admin: 10/20/18 09:29 Dose: 10 mg Gabapentin (Neurontin) 100 mg PO TID [facility] Heparin Sodium (Porcine) (Heparin) 5,000 units SC Q8 [facility] Last Admin: 10/20/18 06:12 Dose: 5,000 units Levothyroxine Sodium (Synthroid) 50 mcg PO DAILY@0630 [facility] Last Admin: 10/20/18 06:12 Dose: 50 mcg Methylprednisolone (Solu-Medrol) 20 mg IVP Q12 [facility] Ondansetron HCl (Zofran Inj) 4 mg IVP Q8 PRN PRN Reason: Nausea/Vomiting Last Admin: 10/19/18 17:23 Dose: 4 mg Pantoprazole Sodium (Protonix Ec Tab) 40 mg PO DAILY [facility] Last Admin: 10/20/18 09:20 Dose: 40 mg Promethazine HCl (Phenergan Syrup) 6.25 mg PO Q6H PRN PRN Reason: Cough Last Admin: 10/18/18 09:39 Dose: 6.25 mg Saccharomyces Boulardii (Florastor) 250 mg PO TID [facility] Last Admin: 10/20/18 09:21 Dose: 250 mg Sucralfate (Carafate Oral Susp) 1 gm PO TID [facility] Last Admin: 10/20/18 09:20 Dose: 1 gm - Labs Labs: 10/18/18 07:41 10/18/18 07:41 PT 14.6 SECONDS (9.7-12.2) H 10/10/18 10:50 INR 1.3 10/10/18 10:50 APTT 38 SECONDS (21-34) H 10/10/18 10:50 - Constitutional Appears: No Acute Distress - Head Exam Head Exam: ATRAUMATIC, NORMOCEPHALIC - Eye Exam Eye Exam: EOMI, PERRL - Neck Exam Neck Exam: absent: Lymphadenopathy, Thyromegaly - Respiratory Exam Respiratory Exam: NORMAL BREATHING PATTERN. absent: Rales, Rhonchi, Wheezes - Cardiovascular Exam Cardiovascular Exam: REGULAR RHYTHM, +S1, +S2. absent: Rubs, Murmur - GI/Abdominal Exam GI & Abdominal Exam: Soft, Normal Bowel Sounds. absent: Tenderness, Mass, Organomegaly - Rectal Exam Rectal Exam: Deferred - Extremities Exam Extremities Exam: absent: Calf Tenderness, Pedal Edema Assessment and Plan (1) Abdominal pain Assessment & Plan: Patient continues to have multiple complaints, including heartburn, nausea and vomiting, abdominal pain, and constipation. Recent blood work showed a low B12 level (185) and borderline ferritin (21.2). Plan is for EGD Monday. Status: Acute
[2018-10-20] MEDS: MethylPREDNISolone 40 mg Vial IVP SCH (23:14)
[2018-10-21] MEDS: Acetylcysteine 20% Inhal Soln (4ml) INH SCH ×4 (01:50→19:34)
[2018-10-21] MEDS: Albuterol-Ipratrop 3 mg / 0.5 (3 ml) UD INH SCH ×4 (01:50→19:35)
[2018-10-21] MEDS: Levothyroxine 50 MCG TAB PO SCH (06:14)
[2018-10-21 08:37] LABS: INR 1.1; PROTHROMBIN TIME 12.4 SECONDS (9.7-12.2)
[2018-10-21 08:42] LABS: BASO % 0.4 % (0.0-2.0); EOS # 0.2 K/uL (0.0-0.7); EOS % 3.5 % (0.0-4.0); HEMOGLOBIN 10.7 g/dL (11.0-16.0); LYMPH # 2.2 K/uL (1.0-4.3); LYMPH % 34.2 % (20.0-40.0); MEAN CELL VOLUME 88.6 fL (81.0-99.0); MEAN CORPUSCULAR HEMOGLOBIN 29.6 pg (27.0-31.0); MEAN CORPUSCULAR HGB CONC 33.4 g/dL (33.0-37.0); MEAN PLATELET VOLUME 8.5 fL (7.2-11.7); MONO % 15.6 % (0.0-10.0); NEUT # 2.9 K/uL (1.8-7.0); NEUT % 46.3 % (50.0-75.0); RBC 3.6 Mil/uL (3.80-5.20); WHITE BLOOD COUNT 6.3 K/uL (4.8-10.8)
[2018-10-21 08:55] LABS: ALBUMIN 3.5 g/dL (3.5-5.0); ALT/SGPT 24 U/L (9-52); AST/SGOT 25 U/L (14-36); BLOOD UREA NITROGEN 10 mg/dL (7-17); CALCIUM 9.1 mg/dl (8.6-10.4); GFR NON-AFRICAN AMERICAN > 60
[2018-10-21] MEDS: Promethazine 6.25 MG/5 ML CUP PO PRN (09:30)
[2018-10-21] MEDS: Saccharomyces Boulardi 250 mg Cap PO SCH ×3 (09:30→17:24)
[2018-10-21] MEDS: Sucralfate 1 gm/10 ml Oral Susp UD PO SCH ×3 (09:30→17:24)
[2018-10-21] MEDS: Pantoprazole 40 mg EC Tab PO SCH (09:30)
[2018-10-21] MEDS: MethylPREDNISolone 40 mg Vial IVP SCH ×2 (09:32→21:25)
[2018-10-22] MEDS: Albuterol-Ipratrop 3 mg / 0.5 (3 ml) UD INH SCH ×3 (02:26→14:03)
[2018-10-22] MEDS: Acetylcysteine 20% Inhal Soln (4ml) INH SCH ×3 (02:26→14:03)
[2018-10-22] MEDS: Levothyroxine 50 MCG TAB PO SCH (05:44)
[2018-10-22] MEDS: MethylPREDNISolone 40 mg Vial IVP SCH (09:40)
[2018-10-22] MEDS: Sucralfate 1 gm/10 ml Oral Susp UD PO SCH ×2 (09:41→14:55)
[2018-10-22] MEDS: Saccharomyces Boulardi 250 mg Cap PO SCH ×2 (09:41→14:55)
[2018-10-22] MEDS: Pantoprazole 40 mg EC Tab PO SCH (09:41)
[2018-10-22] MEDS: Promethazine 6.25 MG/5 ML CUP PO PRN (09:42)
[2018-10-22] MEDS ORDERED: Midazolam 2 MG/2 ML VIAL ONE (14:18)
[2018-10-22] MEDS ORDERED: Propofol 10 mg/ml Inj (20 ML) ONE (14:18)
[2018-10-22] MEDS ORDERED: Lactated Ringer's 500 ML IV ONE ×2 (14:18)
[2018-10-22] MEDS ORDERED: Lidocaine 2% MPF (5 ml) Inj ONE (14:22)
[2018-10-22 15:41] VITALS: BP 124/73; PULSE 90; RESP 20; TEMP 97.9; O2SAT 95
[2018-10-23 13:57] LABS: METHYLMALONIC ACID,SERUM 727 nmol/L (87-318)
== END 2018-10-22 17:15 | disposition home or self-care (01) | DRG 195 ==
LOC: C.ER 09:54 → C.9E 13:00 → C.5S 18:36
PROVIDERS: ADMIT Internal Medicine; ATTEND Internal Medicine
PROC: 0DB68ZX Excision of Stomach, Via Natural or Artificial Opening Endoscopic, Diagnostic (ICD-10-PCS; principal; 2018-10-22 14:17)
DX: J18.9 Pneumonia, unspecified organism (principal); I10 Essential (primary) hypertension; J20.9 Acute bronchitis, unspecified; J45.909 Unspecified asthma, uncomplicated; J84.10 Pulmonary fibrosis, unspecified; K59.00 Constipation, unspecified; Z85.038 Personal history of other malignant neoplasm of large intestine; Z86.11 Personal history of tuberculosis; K29.70 Gastritis, unspecified, without bleeding; K31.7 Polyp of stomach and duodenum; E03.9 Hypothyroidism, unspecified; K21.9 Gastro-esophageal reflux disease without esophagitis; K57.90 Diverticulosis of intestine, part unspecified, without perforation or abscess without bleeding